=== PATIENT | female | born 1940 | race Caucasian/White ===

== ENCOUNTER → 2018-06-15 15:32 | Outpatient (REF) | payer OTHER, SELFPAY ==
[2018-06-15 19:21] LABS: ALT 18 U/L (12-78); AST 22 U/L (15-37); Albumin 3.5 g/dL (3.4-5.0); Alkaline Phosphatase 124 U/L (46-116); Anion Gap 4.9 mmol/L (3-11); BUN 17 mg/dL (7-18); Bilirubin, Total 0.4 mg/dL (0.2-1.0); CO2 35.1 mmol/L (21.0-32.0); CREATININE 0.92 mg/dL (0.55-1.02); Calcium 8.7 mg/dL (8.5-10.1); Chloride 103 mmol/L (98-107); Estimated GFR 59.35 (mL/min/1.73m2); Glucose 97 mg/dL (70-100); Sodium 143 mmol/L (136-145); Total Protein 7.2 g/dL (6.4-8.2)
[2018-06-17 18:09] LABS: Estradiol <12 pg/ml
== END ==
LOC: NCHCN 15:32
PROVIDERS: PCP Nurse Practitioner Family; Visit Provider Family Medicine
DX: I25.10 Atherosclerotic heart disease of native coronary artery without angina pectoris (principal); I10 Essential (primary) hypertension; E78.5 Hyperlipidemia, unspecified; R73.9 Hyperglycemia, unspecified
CPT/HCPCS: 80053; 82533; 82670

== ENCOUNTER 2018-06-29 02:19 | Outpatient (CLI) | payer OTHER, SELFPAY ==
--- NOTE | 2018-06-29 09:39 | DI.REPORT_ITS ---
SYMPTOM/DIAGNOSIS: BILAT HIP PAIN, M25.559 BILATERAL HIPS: Comparison is made with 01/27/17. Mild joint space narrowing and acetabular spurring is seen at the hips bilaterally. Mild degenerative changes are seen in the sacroiliac joints. The symphysis pubis appears intact. The bones appear mildly osteopenic. No fracture or subluxations are identified. There are again seen moderately severe degenerative changes in the lower lumbar spine. Vascular calcifications are seen in the soft tissues. 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
== END 2018-06-29 02:20 ==
PROVIDERS: PCP Family Medicine; Visit Provider Family Medicine
DX: M25.551 Pain in right hip (principal); M25.552 Pain in left hip; M16.0 Bilateral primary osteoarthritis of hip; M85.88 Other specified disorders of bone density and structure, other site
CPT/HCPCS: 73521

== ENCOUNTER 2018-09-12 08:41 | Emergency (ER) | payer OTHER, MEDICARE, SELFPAY ==
[2018-09-12] VITALS (31 sets, daily range): BP systolic 122–169; BP diastolic 63–115; PULSE 67–100; RESP 2–24; TEMP 36.4–36.8; O2SAT 88–99
--- NOTE | 2018-09-12 09:08 | ED.GENADUL_ITS ---
Discharge Plan Disposition Patient Disposition: HOME Condition: Improving Discharge Details Clinical Impression: Acute exacerbation of chronic obstructive pulmonary disease (COPD) Reason For Visit: [facility] Primary Care Provider: Leann Messina V ED Provider: Hermilo Ladd Home Meds and New Rx's Prescriptions: New doxycycline hyclate 100 mg capsule 100 mg PO BID 10 Days Qty: 20 RF: 0 prednisone 20 mg tablet 40 mg PO DAILY 5 Days Qty: 10 RF: 0 Continue furosemide [Lasix] 20 MG tablet 20 mg PO DAILY RF: 0 INCRUISE RF: 0 aspirin [Aspir-81] 81 MG tablet,delayed release (DR/EC) 1 tab PO DAILY RF: 0 sertraline 100 MG tablet 100 mg PO DAILY RF: 0 gabapentin 300 mg Capsule 1 cap PO TID RF: 0 ipratropium-albuterol 0.5 mg-3 mg(2.5 mg base)/3 mL Solution For Nebulization 3 ml UPD Q6H Qty: 30 RF: 0 levofloxacin [Levaquin] 500 mg Tablet 500 mg PO DAILY@2000 Qty: 3 RF: 0 guaifenesin [Mucinex] 600 mg Tablet Extended Release 12hr 600 mg PO BID Qty: 6 RF: 0 prednisone 10 mg tablet 10 mg PO DAILY Qty: 51 RF: 0 nicotine 7 mg/24 hr patch 24 hour 1 patch TD Q24H Qty: 14 RF: 0 nebulizers misc .ROUTE .MEDSUPPLY Qty: 1 RF: 0 ipratropium-albuterol 0.5 mg-3 mg(2.5 mg base)/3 mL solution for nebulization 3 ml IH Q6H PRN (Reason: shortness of breath or wheezing) Qty: 90 RF: 0 atorvastatin [Lipitor] 40 MG tablet 40 mg PO DAILY RF: 0 ropinirole [Requip] 0.25 MG tablet 0.25 mg PO HS RF: 0 pantoprazole 40 MG tablet,delayed release (DR/EC) 40 mg PO DAILY RF: 0 nitroglycerin [Nitrostat] 0.4 MG tablet, sublingual 0.4 mg Sublingual PRN PRNRF: 0 fluticasone [Flovent HFA] 120 PUFF HFA aerosol inhaler 2 puff Inhalation BID RF: 0 gabapentin 300 MG capsule 900 mg PO HS Qty: 90 RF: 0 metoprolol succinate 50 MG tablet extended release 24 hr 50 mg PO DAILY Qty: 30 RF: 0 isosorbide mononitrate 30 MG tablet extended release 24 hr 30 mg PO DAILY Qty: 31 RF: 0 morphine 15 MG tablet 15 mg PO TID PRN (Reason: Chest Pain) Qty: 42 RF: 0 Discharge Instructions Instructions: COPD (Chronic Obstructive Pulmonary Disease) (ED) Additional Instructions: Please follow-up with Dr Messina in clinic tomorrow at 12:45 as planned. Take antibiotics and prednisone as prescribed. Continue use of oxygen as needed at nighttime. Return to the emergency department if you develop worsening difficulty breathing, or any other acute concern. Medical Decision Making 77-year-old female presents from home with 2 days of cough, congestion, worsening shortness of breath. She has some chronic episodes of left-sided chest wall pain for which she takes morphine. She has had some exacerbation of this chronic pain as well. She arrives with a pulse of 70, blood pressure 145/ 85, mildly increased respiratory rate. Differential diagnosis includes COPD exacerbation, CHF, acute CO, pneumonia. Given steroids, duoneb updraft x2. Given her dose of scheduled morphine. Patient referred for laboratry testing and CXR. She was difficult IV access and phlebotomy only performed initially. Diagnostics are reassuring with unremarkable CBC, Trop, DDimer. She is not tachycardic. Chest x-ray unremarkable for acute focal consolidation or other process. Chronic change. With ambulation, the patient is able to maintain oxygenation of 92-94% without increased dyspnea. I do feel presentation is consistent with COPD exacerbation and likely underlying bronchitis. Will place on antibiotics as well as burst of steroids. Patient has follow-up tomorrow in clinic with Steven Messina. Lab Data Lab results reviewed: Yes I reviewed the patient's lab results. Laboratory Tests Range/Units 09/12/18 09/12/18 09/12/18 09:25 09:25 09:25 WBC (4.4-10.8) k/cumm 8.03 RBC (4.00-5.20) m/cumm 4.06 Hgb (12.0-15.5) g/dL 12.6 Hct (36.0-46.0) % 39.6 MCV (80-95) fL 97.5 H MCH (27.0-33.0) pg 31.0 MCHC (32.0-36.0) g/dL 31.8 L RDW (11.7-14.6) % 13.7 Plt Count (130-400) x1000/uL 325 MPV (8.0-11.0) fL 10.3 Immature Gran % 0.1 Neutrophils % 73.0 Lymphocytes % 19.3 Monocytes % 6.7 Eosinophils % 0.7 Basophils % 0.2 Absolute Neutrophils (1.2-6.7) k/cumm 5.85 Absolute Lymphocytes (1.2-3.4) k/cumm 1.55 Absolute Monocytes (0.11-0.7) k/cumm 0.54 Absolute Eosinophils (0.0-0.7) k/cumm 0.06 Absolute Basophils (0.0-0.2) k/cumm 0.02 Sodium (136-145) mmol/L 142 Potassium (3.5-5.1) mmol/L 3.4 L Chloride (98-107) mmol/L 100 Carbon Dioxide (21.0-32.0) mmol/L 34.9 H Anion Gap (3-11) mmol/L 7.1 BUN (7-18) mg/dL 10 Creatinine (0.55-1.02) mg/dL 0.83 Estimated GFR/1.73 m2 (mL/min/1.73m2) >= 60.00 Glucose (70-100) mg/dL 116 H Calcium (8.5-10.1) mg/dL 9.0 Total Bilirubin (0.2-1.0) mg/dL 0.8 AST (15-37) U/L 22 ALT (12-78) U/L 19 Alkaline Phosphatase (46-116) U/L 111 Troponin I (0.00-0.06) ng/mL < 0.02 NT-Pro-B Natriuret Pep ( - 299) pg/mL 246 Total Protein (6.4-8.2) g/dL 7.2 Albumin (3.4-5.0) g/dL 3.4 ECG Data Attestation: I personally reviewed and interpreted this ECG (s) as follows: Interpretation: Normal sinus rhythm, pulse is 65, low voltage, no ST segment elevation HPI General Mode of arrival: EMS . Date/Time Provider Initiated Documentation: 09/12/18 08:46 . Limitations to Documentation: no limitations . Information obtained by: patient . History of Present Illness 77 year old F presents to the emergency department with the chief complaint of Shortness of breath, described as moderate and similar to prior episodes, Quality is described as constant, and is localized to the chest. Patient reports no radiation. Patient started experiencing this day(s) and it has been constant. Patient notes chest pain, cough and shortness of breath. HPI Narrative: This is a 77-year-old female with oxygen dependent COPD, who continues to smoke, who lives at home. She reports chronic intermittent episodes of left-sided chest pain and chronic intermittent shortness of breath. No recent steroids. She now has 2 days of cough with production of sputum, left-sided chest discomfort as well as shortness of breath is minimally improved by home nebulizers. No known sick contacts. No lower extremity pain or swelling. She states that she has been taking her medications and has otherwise been well Related Data Home Medications Medication Instructions Recorded Confirmed aspirin [Aspir-81] 1 tab PO DAILY 10/16/14 09/12/18 sertraline 100 mg PO DAILY 10/17/16 09/12/18 atorvastatin [Lipitor] 40 mg PO DAILY 11/30/16 09/12/18 fluticasone [Flovent HFA] 2 puff INHALATION BID 11/30/16 09/12/18 nitroglycerin [Nitrostat] 0.4 mg SUBLINGUAL PRN PRN 11/30/16 08/02/18 pantoprazole 40 mg PO DAILY 11/30/16 08/02/18 ropinirole [Requip] 0.25 mg PO HS 11/30/16 09/12/18 gabapentin 900 mg PO HS #90 cap 12/02/16 09/12/18 metoprolol succinate 50 mg PO DAILY #30 tabcr 12/02/16 09/12/18 isosorbide mononitrate 30 mg PO DAILY #31 tabcr 12/07/16 09/12/18 morphine 15 mg PO TID PRN #42 tab 12/07/16 09/12/18 furosemide [Lasix] 20 mg PO DAILY tab-cap 03/31/17 09/12/18 gabapentin 1 cap PO TID 08/02/18 09/12/18 guaifenesin [Mucinex] 600 mg PO BID #6 tab 08/09/18 09/12/18 ipratropium-albuterol 3 ml IH Q6H PRN #90 ml 08/09/18 09/12/18 ipratropium-albuterol 3 ml UPD Q6H #30 vial 08/09/18 09/12/18 levofloxacin [Levaquin] 500 mg PO DAILY@1999 #3 tab 08/09/18 09/12/18 nebulizers #1 each 08/09/18 09/12/18 nicotine 1 patch TD Q24H #14 each 08/09/18 prednisone 10 mg PO DAILY #51 tab 08/09/18 doxycycline hyclate 100 mg PO BID 10 Days #20 cap 09/12/18 prednisone 40 mg PO DAILY 5 Days #10 tab 09/12/18 Previous Rx's Medication Instructions Recorded gabapentin 900 mg PO HS #90 cap 12/02/16 metoprolol succinate 50 mg PO DAILY #30 tabcr 12/02/16 isosorbide mononitrate 30 mg PO DAILY #31 tabcr 12/07/16 morphine 15 mg PO TID PRN #42 tab 12/07/16 guaifenesin [Mucinex] 600 mg PO BID #6 tab 08/09/18 ipratropium-albuterol 3 ml IH Q6H PRN #90 ml 08/09/18 ipratropium-albuterol 3 ml UPD Q6H #30 vial 08/09/18 levofloxacin [Levaquin] 500 mg PO DAILY@1999 #3 tab 08/09/18 nebulizers #1 each 08/09/18 nicotine 1 patch TD Q24H #14 each 08/09/18 prednisone 10 mg PO DAILY #51 tab 08/09/18 doxycycline hyclate 100 mg PO BID 10 Days #20 cap 09/12/18 prednisone 40 mg PO DAILY 5 Days #10 tab 09/12/18 Allergies Allergy/AdvReac Type Severity Reaction Status Date / Time latex Allergy Intermediate Skin Rash Unverified 08/02/18 12:22 Sulfa (Sulfonamide Allergy Unknown unknown Unverified 08/02/18 12:22 Antibiotics) General Stated Complaint: SOB WILBER: 3 Review of Systems Review of Systems 8 systems reviewed and otherwise neg PFSH Family History Son Lymphoma in remission Son History of melanoma Mother CAD (coronary artery disease) Myocardial infarction CHF (congestive heart failure) Father CAD (coronary artery disease) Myocardial infarction Medical History COPD with exacerbation (Acute) CAD S/P percutaneous coronary angioplasty (Acute) Restless leg syndrome (Acute) Adjustment reaction with prolonged depressive reaction (Acute) Rib pain (Acute) Chest pain (Acute) Tobacco abuse (Acute) Insomnia (Acute) History of hysterectomy (Chronic) Social History adopted: No caregiver/support person: No foster care: No household members: children housing: house lives independently: No (Lives with son and great granddaughter (10 yrs old)) number of children: 6 current occupational status: retired pets and animals: Yes Smoking/Tobacco Use Status: Current every day tobacco type: cigarettes quit status: has quit before alcohol intake: never substance use type: does not use additional social history: Had 6 sons. One of suicide by drowning at age 42 in 2001. Surgical History History of total right knee replacement (Acute) History of appendectomy (Chronic) History of colon resection (Chronic) History of tonsillectomy (Chronic) Exam Narrative Exam Narrative: GEN: awake, alert, oriented 3. Pleasant, well groomed, interactive. HEAD: Normocephalic, atraumatic ENT: Mucous membranes moist, oropharynx unremarkable, External ear exam unremarkable EYES: PERRL, EOMI NECK: Full ROM, no BOB, no menigismus CHEST/RESP: Nontender, diminished bilateral CARDIOVASCULAR: RRR, 2 out of 6 systolic ejection murmur, rub ivan. 2+ Rad pulse bilateral ABDOMEN: Soft, nontender, no mass. +Bowel sounds EXT: Full ROM, no rash Neuro: Grossly normal neurologic exam, conversant, interactive. Psych: Speech fluent, thoughts congruent, affect normal Course Vital Signs Pulse 70 09/12/18 08:46 Respiratory Rate 23 09/12/18 08:46 Blood Pressure 145/85 H 09/12/18 08:46 Pulse Oximetry 94 L 09/12/18 08:46 Pulse 70 09/12/18 08:46 Respiratory Rate 23 09/12/18 08:46 Respiratory Effort 09/12/18 08:46 Blood Pressure 145/85 H 09/12/18 08:46 Blood Pressure Position Supine 09/12/18 08:46 Pulse Oximetry 94 L 09/12/18 08:46 Oxygen Delivery Method Room Air 09/12/18 08:46 Oxygen Flow Rate 0 09/12/18 08:46
[2018-09-12 09:36] LABS: Abs Immature Grans 0.01 k/cumm (0.0-0.09); Absolute Basophil Count 0.02 k/cumm (0.0-0.2); Absolute Eosinophil Count 0.06 k/cumm (0.0-0.7); Absolute Lymphocyte Count 1.55 k/cumm (1.2-3.4); Absolute Monocyte Count 0.54 k/cumm (0.11-0.7); Absolute Neutrophil Count 5.85 k/cumm (1.2-6.7); Basophils % 0.2; Eosinophils % 0.7; HCT 39.6 % (36.0-46.0); HGB 12.6 g/dL (12.0-15.5); Immature Grans % 0.1; Lymphocytes % 19.3; Mean Corp. HGB Concentration 31.8 g/dL (32.0-36.0); Mean Corpuscular Volume 97.5 fL (80-95); Mean Platelet Volume 10.3 fL (8.0-11.0); Monocytes % 6.7; Platelet Count 325 x1000/uL (130-400); RBC 4.06 m/cumm (4.00-5.20); RBC Distribution Width 13.7 % (11.7-14.6); White Blood Cell Count 8.03 k/cumm (4.4-10.8)
[2018-09-12 09:51] LABS: ALT 19 U/L (12-78); AST 22 U/L (15-37); Albumin 3.4 g/dL (3.4-5.0); Alkaline Phosphatase 111 U/L (46-116); Anion Gap 7.1 mmol/L (3-11); BUN 10 mg/dL (7-18); Bilirubin, Total 0.8 mg/dL (0.2-1.0); CO2 34.9 mmol/L (21.0-32.0); CREATININE 0.83 mg/dL (0.55-1.02); Chloride 100 mmol/L (98-107); Glucose 116 mg/dL (70-100); Potassium 3.4 mmol/L (3.5-5.1); Sodium 142 mmol/L (136-145); Total Protein 7.2 g/dL (6.4-8.2)
[2018-09-12 09:56] LABS: NT-proBNP 246 pg/mL
[2018-09-12 09:58] LABS: Troponin I < 0.02 ng/mL (0.00-0.06)
[2018-09-12] MEDS: Albuterol/Ipratropium 3 ML UPD VIAL UPD ×2 (10:08→10:51)
--- NOTE | 2018-09-12 10:44 | DI.RAD_ITS ---
SYMPTOMS/DIAGNOSIS: L PAIN, COUGH, SHORTNESS OF BREATH PA AND LATERAL CHEST: The heart is not enlarged. There appear to be some changes of scarring in the lung bases. No definite acute consolidation. No pleural effusion. CONCLUSION: No evidence of acute disease.
== END 2018-09-12 12:18 | disposition home or self-care (01) ==
PROVIDERS: Emergency Provider Emergency Medicine; PCP Family Medicine
DX: J44.1 Chronic obstructive pulmonary disease with (acute) exacerbation (principal); F17.210 Nicotine dependence, cigarettes, uncomplicated; R07.9 Chest pain, unspecified; G89.29 Other chronic pain; Z99.81 Dependence on supplemental oxygen; I10 Essential (primary) hypertension; I25.10 Atherosclerotic heart disease of native coronary artery without angina pectoris
CPT/HCPCS: 36415; 80053; 93005; 94640; 99285; 71046; 83880; 84484; 85025; 93010; 99284; J7620

== ENCOUNTER 2019-02-08 12:30 | Outpatient (CLI) | payer OTHER, SELFPAY | END 2019-02-08 12:50 | PROVIDERS: PCP Family Medicine; Visit Provider Internal Medicine Cardiovascular Disease | DX: I25.10 Atherosclerotic heart disease of native coronary artery without angina pectoris (principal); I10 Essential (primary) hypertension; E78.5 Hyperlipidemia, unspecified; J44.9 Chronic obstructive pulmonary disease, unspecified; Z99.81 Dependence on supplemental oxygen; F17.210 Nicotine dependence, cigarettes, uncomplicated | CPT/HCPCS: 99214 ==

== ENCOUNTER 2019-04-12 16:51 | Outpatient (REF) | payer OTHER, SELFPAY ==
[2019-04-12 20:07] LABS: Anion Gap 4.9 mmol/L (3-11); BUN 18 mg/dL (7-18); C-Reactive Protein 0.33 mg/dL (0.0-0.3); CO2 37.1 mmol/L (21.0-32.0); Calcium 8.6 mg/dL (8.5-10.1); Chloride 101 mmol/L (98-107); Creatine Kinase 67 U/L (26-192); Estimated GFR 48.16 (mL/min/1.73m2); Glucose 98 mg/dL (70-100); Magnesium 1.9 mg/dL (1.8-2.4); Potassium 4.7 mmol/L (3.5-5.1); Sodium 143 mmol/L (136-145)
== END 2019-04-12 17:11 ==
LOC: NCHCN 16:51
PROVIDERS: PCP Family Medicine; Visit Provider Family Medicine
DX: M79.10 Myalgia, unspecified site (principal)
CPT/HCPCS: 80048; 82550; 83735; 86140

== ENCOUNTER 2019-08-13 00:31 | Outpatient (CLI) | payer OTHER, SELFPAY ==
[2019-08-13] MEDS: Regadenoson 0.4 MG/5 ML SYR IVP (10:24)
--- NOTE | 2019-08-13 12:05 | DI.NM_ITS ---
APPROVED REPORT Exam: Pharmacologic Patient Location: Out-Patient Stress Nurse: Kasia Steven RN Baseline Rhythm: Bradycardia short pr interval BMI: 22.31 Indications: Pre-Operative CV Evaluation Medical History Medical History: CAD s/p stent, HTN, Hyperlipidemia, SVT,, COPD O2 dependent at hs,, Obstructive slee p apnea Cardiac Medications: Isosorbide mononitrate/ [place], Metoprolol, Atorvastatin/ Lipitor Allergies: sulfa, latex Cardiac Risk Factors: HTN, Hyperlipidemia, FHX of CAD, Smoking, SOB, COPD Previous Cardiac Procedures: PCI Pretest Chest Pain Characteristics: Non-exertional Chest pain Exercise History: Sedentary Lung Sounds: Clear to auscultation Heart Sounds: Regular Stress Test Details Test: Pharmacologic stress testing performed using 0.4 mg of regadenoson per 5 mL given IV over 10 s econds. Nuclear Acquisition: Rest Tc-99m/Stress Tc-99m 1 day Rest Isotope: Tc-99m Sestamibi. Dose: 10.2 Date: 08/13/2019 Injection Time: 0850 Stress Isotope: Tc-99m Sestamibi. Dose: 32.7 Date: 08/13/2019 Injection Time: 0955 HR Resting HR: 48 bpm Max Heart Rate (APMHR): 143 bpm Resting HR Supine: 48 bpm Target HR (85% APMHR): 121 bpm Resting HR Standin bpm Max HR Achieved: 85 bpm % of APMHR: 59 Recovery HR: 79 bpm HR response to stress: Normal HR response to stress BP Resting BP Supine: 110/82 mmHg Resting BP Standin/78 mmHg Max BP: 140/86 mmHg Recovery BP: 140/74 mmHg BP response to stress: Normal blood pressure response to stress. ECG Resting ECG: Sinus Bradycardia ST Change: Normal Ectopy: pvc's Stress ECG: Sinus Rhythm ST Change: Normal Arrhythmia: VPC's, trigeminy, MF pvc's Recovery ECG: Sinus Rhythm Recovery Arrhythmia: VPC Clinical Start time of Regadenoson test (time of injection): 09 Stress Symptoms: Dyspnea, Headache Exercise duration: min sec Stress ECG Conclusion 1. There is no evidence of ischemia on stress ECG. Test Summary supine 07:07 0 0 48 1 110/82 91 standing 0 0 66 1 134/78 89-92 start test 1 minute 0 0 55 1 132/72 92 3 minute 0 0 79 1 140/86 94 6 min 79 140/74 92 MPI Conclusion Ejection Fraction was 54% without wall motion abnormalities There are no significant perfusion defects on stress imaging This represents a normal stress perfusion test.
== END 2019-08-13 00:51 ==
PROVIDERS: PCP Family Medicine; Visit Provider Family Medicine
DX: R07.89 Other chest pain (principal); R06.02 Shortness of breath; I25.10 Atherosclerotic heart disease of native coronary artery without angina pectoris; Z95.5 Presence of coronary angioplasty implant and graft; I10 Essential (primary) hypertension; E78.5 Hyperlipidemia, unspecified; F17.200 Nicotine dependence, unspecified, uncomplicated; J44.9 Chronic obstructive pulmonary disease, unspecified; Z01.810 Encounter for preprocedural cardiovascular examination
CPT/HCPCS: 78452; 93016; 93018; 93017; J2785

== ENCOUNTER 2019-12-10 16:49 | Inpatient (IN) | payer OTHER, SELFPAY ==
[2019-12-10 16:53] VITALS: BP 147/96; PULSE 59; RESP 20; TEMP 36.9; O2SAT 91
[2019-12-10 17:19] LABS: Bilirubin Negative (Negative); Blood Trace-intact (Negative); Clarity Clear (Clear); Glucose Negative (Negative); Ketones Negative (Negative); Leukocyte Esterase Negative (Negative); Nitrite Negative (Negative); Specific Gravity 1.015 (1.005-1.025); pH 7.5 (5-8)
[2019-12-10 17:31] LABS: Bacteria Few HPF (Negative); C & S Indicated? No; Casts Negative LPF (Negative); Crystals Negative HPF (Negative); Epithelial Cells Few HPF (Negative); Mucus Negative (Negative); Other Cells Negative (Negative)
[2019-12-10 17:36] LABS: Abs Immature Grans 0.01 k/cumm (0.0-0.09); Absolute Basophil Count 0.04 k/cumm (0.0-0.2); Absolute Eosinophil Count 0.16 k/cumm (0.0-0.7); Absolute Lymphocyte Count 2.11 k/cumm (1.2-3.4); Absolute Monocyte Count 0.66 k/cumm (0.11-0.7); Absolute Neutrophil Count 4.59 k/cumm (1.2-6.7); Basophils % 0.5; Eosinophils % 2.1; HCT 37.7 % (36.0-46.0); HGB 12.3 g/dL (12.0-15.5); Immature Grans % 0.1 %; Lymphocytes % 27.9; Mean Corp. HGB Concentration 32.6 g/dL (32.0-36.0); Mean Corpuscular Hemoglobin 30.9 pg (27.0-33.0); Mean Corpuscular Volume 94.7 fL (80-95); Mean Platelet Volume 9.9 fL (8.0-11.0); Monocytes % 8.7; Neutrophils % 60.7; Platelet Count 255 x1000/uL (130-400); RBC 3.98 m/cumm (4.00-5.20); RBC Distribution Width 13.9 % (11.7-14.6); White Blood Cell Count 7.57 k/cumm (4.4-10.8)
--- NOTE | 2019-12-10 17:47 | DI.CT_ITS ---
EXAM: CT HEAD WO CT HEAD WO CLINICAL HISTORY: AMS. AMS TECHNIQUE: Imaging Protocol: Axial computed tomography images with coronal and sagittal reformatted images were created and reviewed COMPARISON: HEAD WITHOUT STROKE PROTOCOL from 01/02/2017 FINDINGS: Ventricles and Extra axial spaces: Normal in size and morphology for the patient's age. Hemorrhage: None. Cerebral parenchyma: Normal. Midline shift: None. Brainstem/Cerebellum: Normal. Calvarium: Normal. Visualized Paranasal sinuses/Mastoids: Clear. IMPRESSION: Normal CT of the head. DATA REPOSITORY: All CT scans at this facility are submitted to the National Radiology Data Registry (NRDR) Dose Index Registry (DIR) with the [employer] ([employer]). RADIATION OPTIMIZATION: All CT scans at this facility use at least one of these dose optimization te chniques: automated exposure control; mA and/or kV adjustment per patient size (includes targeted exa ms where dose is matched to clinical indication); or iterative reconstruction.
[2019-12-10 18:00] LABS: ALT 10 U/L (14-59); AST 21 U/L (15-37); Albumin 3.4 g/dL (3.4-5.0); Alkaline Phosphatase 99 U/L (46-116); Anion Gap 3.6 mmol/L (3-11); BUN 9 mg/dL (7-18); Bilirubin, Total 1.1 mg/dL (0.2-1.0); CO2 34.4 mmol/L (21.0-32.0); CREATININE 0.83 mg/dL (0.55-1.02); Calcium 8.6 mg/dL (8.5-10.1); Chloride 96 mmol/L (98-107); Glucose 83 mg/dL (74-106); Potassium 3.1 mmol/L (3.5-5.1); Sodium 134 mmol/L (136-145); TSH (W/Ref FT4) 1.99 uIU/mL (0.36-3.74); Total Protein 7.2 g/dL (6.4-8.2)
--- NOTE | 2019-12-10 18:06 | DI.VRAD_ITS ---
PROCEDURE INFORMATION: Exam: CT Head Without Contrast Exam date and time: 12/10/2019 5:43 PM Age: 79 years old Clinical indication: Altered mental status/memory loss; Confusion or disorientation TECHNIQUE: Imaging protocol: Computed tomography of the head without contrast. Radiation optimization: All CT scans at this facility use at least one of these dose optimization techniques: automated exposure control; mA and/or kV adjustment per patient size (includes targeted exams where dose is matched to clinical indication); or iterative reconstruction. COMPARISON: CT HEAD WITHOUT STROKE PROTOCOL 01/02/2017 5:29 PM FINDINGS: Brain: There is no acute intracranial hemorrhage, mass effect or midline shift. No large acute territorial infarct identified. There are patchy regions of hypodensity in the periventricular and subcortical white matter, likely on the basis of chronic microvascular ischemic disease. Ventricles: The ventricles and sulci are prominent in size, which is likely related to global cerebral volume loss. Bones/joints: Unremarkable. No acute fracture. Sinuses: Visualized sinuses are unremarkable. No fluid levels. Mastoid air cells: Visualized mastoid air cells are well aerated. Soft tissues: Unremarkable. IMPRESSION: No acute intracranial hemorrhage, mass effect or midline shift. Dictated and Authenticated by: Lynn Powell MD. Ordering:BERNA Anguiano MD
--- NOTE | 2019-12-10 18:19 | W.ED.GENAD ---
Discharge Plan Disposition Patient Disposition: OTHER Condition: Serious Discharge Details Chief Complaint: GenMedical Clinical Impression: Altered mental status, Hallucinations Primary Care Provider: Leann Messina V ED Provider: Silvio Pacheco Home Meds and New Rx's Prescriptions: No Action furosemide [Lasix] 20 MG tablet 20 mg PO DAILY RF: 0 aspirin [Aspir-81] 81 MG tablet,delayed release (DR/EC) 1 tab PO DAILY RF: 0 sertraline 100 MG tablet 150 mg PO DAILY RF: 0 (D[place]) [place] [facility] [place] Dose Instructions .ROUTE .MEDSUPPLY Qty: 1 RF: 0 ketoconazole 2 % Shampoo 1 applic TOPICAL PRN PRNRF: 0 ibuprofen 800 mg Tablet 800 mg PO TID PRNRF: 0 hydrocodone-acetaminophen 5-325 mg Tablet 1 tab PO BID PRNRF: 0 albuterol sulfate [ProAir HFA] 90 mcg/actuation Hfa Aerosol Inhaler 2 puff INHALATION Q6H PRNRF: 0 budesonide-formoterol [Symbicort] 160-4.5 mcg/actuation Hfa Aerosol Inhaler 2 puff INHALATION BID RF: 0 Incruse Ellipta 62.5 mcg/actuation Blister With Device 1 inh INHALATION DAILY RF: 0 bupropion HCl (smoking deter) 150 mg Tablet Extended Release 12 Hr 150 mg PO BID RF: 0 cholecalciferol (vitamin D3) 2,000 unit Tablet,Chewable 2,000 unit PO DAILY RF: 0 ipratropium-albuterol 0.5 mg-3 mg(2.5 mg base)/3 mL solution for nebulization 3 ml UPD Q6H PRNRF: 0 isosorbide mononitrate 30 MG tablet extended release 24 hr 60 mg PO DAILY RF: 0 atorvastatin [Lipitor] 40 MG tablet 80 mg PO DAILY RF: 0 ropinirole [Requip] 0.25 MG tablet 0.5 mg PO HS RF: 0 pantoprazole 40 MG tablet,delayed release (DR/EC) 40 mg PO DAILY RF: 0 nitroglycerin [Nitrostat] 0.4 MG tablet, sublingual 0.4 mg Sublingual PRN PRNRF: 0 gabapentin 300 MG capsule 900 mg PO HS Qty: 90 RF: 0 metoprolol succinate 50 MG tablet extended release 24 hr 50 mg PO DAILY Qty: 30 RF: 0 morphine 15 MG tablet 15 mg PO TID PRN (Reason: Chest Pain) Qty: 42 RF: 0 Medical Decision Making 79-year-old female having hallucinations since taking Wellbutrin. Clearly this medication can cause her symptoms but given her age and comorbidities will obtain routine laboratory values, urinalysis, thyroid studies and head CT. I had a long discussion with patient and friend. Patient is limited resources locally. Family lives south in the [facility] and cannot care for her this evening. After having a very transparent conversation, patient's friend does not feel as though taking her home is in the patient's best interest. Work-up here in the ER was unremarkable. We once again discussed disposition options. This is a 79-year-old female having hallucinations, with mental status, opening the door and middle the night for hallucinations. Clearly she is not safe to go home in her current condition. We will discuss the case with our hospitalist team for safe disposition. I did initially question whether or not getting a psych consultation would be indicated however given the recent medication change which very well could cause her symptoms, I question if we need to give the medication a chance to clear and the symptoms persist then psychiatric consultation would be more appropriate. HPI General Mode of arrival: ambulatory. Date/Time Provider Initiated Documentation: 12/10/19 16:52. Limitations to Documentation: no limitations. Information obtained by: patient and family (Friend). HPI Narrative: 79-year-[place] for altered mental status and visual hallucinations. She has a history of AAA, COPD, CAD, restless leg syndrome, tobacco use, insomnia patient was prescribed Wellbutrin by her primary care provider and began taking it on 11-19-2027. After 14 days she increased the dose as directed. She reports that soon after she began having altered thoughts, worsening insomnia, and lack of appetite. She denies any suicidal or homicidal ideations whatsoever. The symptoms worsened and now she is having visual hallucinations. She sees men and multiple trucks in her driveway, she saw her son and she opened the door for him in the middle of the night. She has been seeing boxes of bones and rats running around the floor. She denies any recent illness or trauma. Specifically no head injuries. Denies history of hallucinations. She did talk with her primary care provider last week regarding the symptoms and it was recommended that she stop taking the Wellbutrin however she felt as though it was helping with her smoking so she simply decrease the dose but has not stopped taking the medication. Related Data Home Medications Medication Instructions Recorded Confirmed aspirin [Aspir-81] 1 tab PO DAILY 10/16/14 12/10/19 sertraline 150 mg PO DAILY 10/17/16 12/10/19 atorvastatin [Lipitor] 80 mg PO DAILY 11/30/16 12/10/19 nitroglycerin [Nitrostat] 0.4 mg SUBLINGUAL PRN PRN 11/30/16 12/10/19 pantoprazole 40 mg PO DAILY 11/30/16 12/10/19 ropinirole [Requip] 0.5 mg PO HS 11/30/16 12/10/19 gabapentin 900 mg PO HS #90 cap 12/02/16 12/10/19 metoprolol succinate 50 mg PO DAILY #30 tabcr 12/02/16 12/10/19 morphine 15 mg PO TID PRN #42 tab 12/07/16 12/10/19 furosemide [Lasix] 20 mg PO DAILY tab-cap 03/31/17 12/10/19 nebulizers #1 each 08/09/18 02/08/19 albuterol sulfate [ProAir HFA] 2 puff INHALATION Q6H PRN 12/10/19 12/10/19 budesonide-formoterol [Symbicort] 2 puff INHALATION BID 12/10/19 12/10/19 bupropion HCl (smoking deter) 150 mg PO BID 12/10/19 12/10/19 cholecalciferol (vitamin D3) 2,000 unit PO DAILY 12/10/19 12/10/19 hydrocodone-acetaminophen 1 tab PO BID PRN 12/10/19 12/10/19 ibuprofen 800 mg PO TID PRN 12/10/19 12/10/19 ipratropium-albuterol 3 ml UPD Q6H PRN 12/10/19 12/10/19 isosorbide mononitrate 60 mg PO DAILY 12/10/19 12/10/19 ketoconazole 1 applic TOPICAL PRN PRN 12/10/19 12/10/19 umeclidinium [Incruse Ellipta] 1 inh INHALATION DAILY 02/11/20 02/11/20 Previous Rx's Medication Instructions Recorded gabapentin 900 mg PO HS #90 cap 12/02/16 metoprolol succinate 50 mg PO DAILY #30 tabcr 12/02/16 morphine 15 mg PO TID PRN #42 tab 12/07/16 nebulizers #1 each 08/09/18 Allergies Allergy/AdvReac Type Severity Reaction Status Date / Time latex Allergy Intermediate Skin Rash Unverified 02/08/19 12:32 Sulfa (Sulfonamide Allergy Unknown unknown Unverified 02/08/19 12:32 Antibiotics) General Stated Complaint: GenMedical WILBER: 3 Review of Systems Constitutional Constitutional: Denies chills, Denies fatigue, Denies fever(s) and Denies weakness Eyes Eyes: Denies other visual disturbances ENT Ears, Nose, Mouth, and Throat: Denies dry mouth Cardiovascular Cardiovascular: Denies chest pain and Denies dyspnea Respiratory Respiratory: Denies dyspnea and Denies wheezing Gastrointestinal Gastrointestinal: Denies abdominal pain, Denies nausea and Denies vomiting Musculoskeletal Musculoskeletal: Denies back pain and Denies tingling Neurologic Neurologic: Reports other visual disturbances (Visual hallucinations), Denies tingling, Denies paresthesias and Denies weakness Psychiatric Psychiatric: Reports abnormal sleep pattern, Reports visual hallucinations, Reports hallucinations, Denies homicidal ideation and Denies suicidal ideation Endocrine Endocrine: Denies fatigue Allergic/Immunologic Allergic/Immunologic: Denies wheezing [facility] Medical History Adjustment reaction with prolonged depressive reaction (Acute) CAD S/P percutaneous coronary angioplasty (Acute) Chest pain (Acute) COPD with exacerbation (Acute) Insomnia (Acute) Restless leg syndrome (Acute) Rib pain (Acute) Tobacco abuse (Acute) Surgical History History of appendectomy (Chronic) History of colon resection (Chronic) History of hysterectomy (Chronic) History of tonsillectomy (Chronic) History of total right knee replacement (Acute) Family History Son Lymphoma in remission Son History of melanoma Mother , at age 65 CAD (coronary artery disease) Myocardial infarction CHF (congestive heart failure) Father , at age 66 CAD (coronary artery disease) Myocardial infarction Social History Smoking/Tobacco Use Status: Current every day Tobacco Type: cigarettes Quit status: has quit before Alcohol Intake: never Drug use: Never Substance use type: does not use Adopted: No Caregiver/Support person: No Foster care: No Household members: children Housing: house Number of Children: 6 Pets and animals: Yes Do you feel safe in your relationship?: Yes Additional Social history: Had 6 sons. One of suicide by drowning at age 42 in 2001. Exam Const General: cooperative, healthy appearing, comfortable and no acute distress Orientation: alert, awake and oriented x3 HENMT Head: normal to inspection and normocephalic Mouth: moist mucous membranes Eyes General: appearance normal, both eyes and all related structures Conjunctivae: conjunctivae normal Pupils: PERRL EOM: EOM intact bilaterally Neck Neck: normal visual inspection, full ROM, no lymphadenopathy, no meningeal signs, trachea midline and supple Resp Effort & Inspection: normal respiratory effort Auscultation: wheezes (Rare bilateral lower lobe expiratory wheeze, mostly clear with cough) Cardio Rate: regular rate Rhythm: regular rhythm GI Inspection: normal to inspection Palpation: soft and nontender Back/Spine/Pelvis Back: No back tenderness Skin General skin exam: no rashes or lesions noted Neuro General: alert, awake and oriented x3 Cranial Nerves: CN's II-XI intact bilaterally Cognition: normal cognition (Pt with no hallucinations. Has good insight regarding her hallucinations) Speech: speech normal Gait: normal gait Motor: muscle tone normal throughout Sensory Exam: no sensory deficits noted Extrem General: normal to inspection Psych Appearance: grossly normal Course Vital Signs Vital signs: Vital Signs Temperature 36.9 C 12/10/19 16:53 Pulse 59 L 12/10/19 16:53 Respiratory Rate 12/10/19 16:53 Blood Pressure 147/96 H 12/10/19 16:53 Pulse Oximetry 91 L 12/10/19 16:53 Temperature 36.9 C 12/10/19 16:53 Temperature Source Skin 12/10/19 16:53 Pulse 59 L 12/10/19 16:53 Respiratory Rate 12/10/19 16:53 Respiratory Effort Non-Labored 12/10/19 17:11 Respiratory Depth Normal 12/10/19 17:11 Respiratory Pattern Normal 12/10/19 17:11 Blood Pressure 147/96 H 02/11/20 16:53 Blood Pressure Position Sitting 12/10/19 16:53 Pulse Oximetry 91 L 12/10/19 16:53 Oxygen Delivery Method Room Air 12/10/19 16:53 Oxygen Flow Rate 0 12/10/19 16:53 Lab/Test Results Lab/Test Results: Laboratory Tests Range/Units 12/10/19 12/10/19 12/10/19 17:04 17:30 17:30 WBC (4.4-10.8) k/cumm 7.57 RBC (4.00-5.20) m/cumm 3.98 L Hgb (12.0-15.5) g/dL 12.3 Hct (36.0-46.0) % 37.7 MCV (80-95) fL 94.7 MCH (27.0-33.0) pg 30.9 MCHC (32.0-36.0) g/dL 32.6 RDW (11.7-14.6) % 13.9 Plt Count (130-400) x1000/uL 255 MPV (8.0-11.0) fL 9.9 Immature Gran % % 0.1 Neutrophils % 60.7 Lymphocytes % 27.9 Monocytes % 8.7 Eosinophils % 2.1 Basophils % 0.5 Absolute Neutrophils (1.2-6.7) k/cumm 4.59 Absolute Lymphocytes (1.2-3.4) k/cumm 2.11 Absolute Monocytes (0.11-0.7) k/cumm 0.66 Absolute Eosinophils (0.0-0.7) k/cumm 0.16 Absolute Basophils (0.0-0.2) k/cumm 0.04 Sodium (136-145) mmol/L 134 L Potassium (3.5-5.1) mmol/L 3.1 L Chloride (98-107) mmol/L 96 L Carbon Dioxide (21.0-32.0) mmol/L 34.4 H Anion Gap (3-11) mmol/L 3.6 BUN (7-18) mg/dL 9 Creatinine (0.55-1.02) mg/dL 0.83 Estimated GFR/1.73 m2 (mL/min/1.73m2) >= 60.00 Glucose (74-106) mg/dL 83 Calcium (8.5-10.1) mg/dL 8.6 Total Bilirubin (0.2-1.0) mg/dL 1.1 H AST (15-37) U/L 21 ALT (14-59) U/L 10 L Alkaline Phosphatase (46-116) U/L 99 Total Protein (6.4-8.2) g/dL 7.2 Albumin (3.4-5.0) g/dL 3.4 TSH (0.36-3.74) uIU/mL 1.99 Urine Color (Yellow) Yellow Urine Clarity (Clear) Clear Urine pH (5-8) 7.5 Ur Specific [place] (1.005-1.025) 1.015 Urine Protein (Negative) mg/dL Negative Urine Ketones (Negative) mg/dL Negative Urine Blood (Negative) Trace-intact H Urine Nitrite (Negative) Negative Urine Bilirubin (Negative) Negative Urine Urobilinogen (Up TO 0.2) EU/dL 1.0 H Ur Leukocyte Esterase (Negative) Negative Urine RBC (0-2) HPF 3-5 H Urine WBC (0-5) HPF 3-5 Ur Epithelial Cells (Negative) HPF Few Urine Crystals (Negative) HPF Negative Urine Bacteria (Negative) HPF Few Urine Casts (Negative) LPF Negative Urine Mucus (Negative) Negative Urine Other (Negative) Negative Ur Culture Indicated? No Urine Glucose (Negative) mg/dL Negative
[2019-12-10 18:26] VITALS: BP 158/55; PULSE 50; RESP 15; TEMP 37; O2SAT 91
--- NOTE | 2019-12-10 18:40 | NUR.NOTE ---
IV attempted in L forearm without success. pt states she wants to go home tonight as she needs to feed her dogs. provider notified.
--- NOTE | 2019-12-10 19:08 | NUR.NOTE ---
TARIK Anguiano notified pt declined IV at this time.
[2019-12-10 19:28] VITALS: BP 181/78; PULSE 54; RESP 16; TEMP 36.4; O2SAT 90
--- NOTE | 2019-12-10 21:00 | W.PM.HP.N ---
Date of service: 12/10/19 Time of Service: 21:00 Assessment and Plan Assessment and plan (1) Hallucinations: Status: Acute Assessment and plan: Wellbutrin can have side effects of behavior change, hostility, agitation, depression, and suicidality. While the patient is not at all suicidal or homicidal she is having active hallucinations by her report. She is admitted to observation where holding the Wellbutrin. We will see if this has an overall positive effect on hallucinations. Will provide nicotine replacement in the form of patch. She may need further psychiatric evaluation. No antipsychotic medications were started at this time. (2) Altered mental status: Status: Acute Assessment and plan: Patient lives alone. She was brought in by a friend. There is concern that her altered mental status will be detrimental to her living independently at home. Her friend did not think she could take care of her. She is admitted for observation. History of Present Illness History of Present Illness Chief Complaint: Hallucinations Narrative: This is a 79-year-old woman who has recently started Wellbutrin for smoking cessation. She has been on it since 11/19/2019. After 14 days the dose was increased by her PCP. She does not want to stop the medicine because it is working and helping her quit smoking. Soon after beginning the Wellbutrin she began having altered thoughts, worsening insomnia, lack of appetite. Recently she has begun having visual hallucinations. She sees men and multiple trucks in her driveway. She saw her son and open the door for him in the middle of the night. She has seen boxes of bones and rats running around the floor. She reported this to her PCP who recommended stopping the Wellbutrin but because it was helping with her smoking cessation she decreased the dose but did not stop the medication. In the emergency room her exam was benign, her pulse was low at 50, her potassium low at 3.1. A head CT was negative. The urine showed 3-5 red cells and 3-5 white cells. She is admitted to [facility] for further work-up. She is placed on telemetry because of the bradycardia. The Wellbutrin is being held. Review of Systems Narrative: At the time of my exam the patient offers no complaints. She says she was not actively hallucinating. She had no chest pain no shortness of breath. She had no GI symptoms. Remainder review of systems was negative. [facility] Medical History Adjustment reaction with prolonged depressive reaction (Acute) CAD S/P percutaneous coronary angioplasty (Acute) Chest pain (Acute) COPD with exacerbation (Acute) Insomnia (Acute) Restless leg syndrome (Acute) Rib pain (Acute) Tobacco abuse (Acute) Surgical History History of appendectomy (Chronic) History of colon resection (Chronic) History of hysterectomy (Chronic) History of tonsillectomy (Chronic) History of total right knee replacement (Acute) Family History Son Lymphoma in remission Son History of melanoma Mother , at age 65 CAD (coronary artery disease) Myocardial infarction CHF (congestive heart failure) Father , at age 66 CAD (coronary artery disease) Myocardial infarction Social History Smoking/Tobacco Use Status: Current every day Tobacco Type: cigarettes Quit status: has quit before Alcohol Intake: never Drug use: Never Substance use type: does not use Adopted: No Caregiver/Support person: No Foster care: No Household members: children Housing: house Number of Children: 6 Pets and animals: Yes Do you feel safe in your relationship?: Yes Additional Social history: Had 6 sons. One of suicide by drowning at age 42 in 2001. Meds Home Medications and Allergies Home Medications Medication Instructions Recorded Confirmed Type aspirin [Aspir-81] 1 tab PO DAILY 10/16/14 12/10/19 History sertraline 150 mg PO DAILY 10/17/16 12/10/19 History atorvastatin [Lipitor] 80 mg PO DAILY 11/30/16 12/10/19 History nitroglycerin [Nitrostat] 0.4 mg SUBLINGUAL PRN PRN 11/30/16 12/10/19 History pantoprazole 40 mg PO DAILY 11/30/16 12/10/19 History ropinirole [Requip] 0.5 mg PO HS 11/30/16 12/10/19 History gabapentin 900 mg PO HS #90 cap 12/02/16 12/10/19 Rx metoprolol succinate 50 mg PO DAILY #30 tabcr 12/02/16 12/10/19 Rx morphine 15 mg PO TID PRN #42 tab 12/07/16 12/10/19 Rx furosemide [Lasix] 20 mg PO DAILY tab-cap 03/31/17 12/10/19 History nebulizers #1 each 08/09/18 02/08/19 Rx albuterol sulfate [ProAir HFA] 2 puff INHALATION Q6H PRN 12/10/19 12/10/19 History budesonide-formoterol [Symbicort] 2 puff INHALATION BID 12/10/19 12/10/19 History bupropion HCl (smoking deter) 150 mg PO BID 12/10/19 12/10/19 History cholecalciferol (vitamin D3) 2,000 unit PO DAILY 12/10/19 12/10/19 History hydrocodone-acetaminophen 1 tab PO BID PRN 12/10/19 12/10/19 History ibuprofen 800 mg PO TID PRN 12/10/19 12/10/19 History ipratropium-albuterol 3 ml UPD Q6H PRN 12/10/19 12/10/19 History isosorbide mononitrate 60 mg PO DAILY 12/10/19 12/10/19 History ketoconazole 1 applic TOPICAL PRN PRN 12/10/19 12/10/19 History umeclidinium [Incruse Ellipta] 1 inh INHALATION DAILY 12/10/19 12/10/19 History Allergies Allergy/AdvReac Type Severity Reaction Status Date / Time latex Allergy Intermediate Skin Rash Unverified 02/08/19 12:32 Sulfa (Sulfonamide Allergy Unknown unknown Unverified 02/08/19 12:32 Antibiotics) Exam Narrative Exam Narrative: On exam she is somewhat disheveled lying in bed in the position. She is very groggy. She acknowledge my presence but spoke very little. She did not appear anxious or paranoid. There was no evidence that she was actively hallucinating. She moves upper and lower extremities without any apparent decrement of function. She was able to follow commands. Her lung exam was clear on the right and left. Her heart sounded regular but bradycardic. Abdomen was overall nontender. Her lower extremities showed no significant edema. Results Labs Result diagrams: 12/10/19 17:30 12/10/19 17:30 Labs: Laboratory Results - last 24 hr 12/10/19 12/10/1912/10/20 17:04 17:30 17:30 WBC 7.57 RBC 3.98 L Hgb 12.3 Hct 37.7 MCV 94.7 MCH 30.9 MCHC 32.6 RDW 13.9 Plt Count 255 MPV 9.9 Immature Gran % 0.1 Neutrophils % 60.7 Lymphocytes % 27.9 Monocytes % 8.7 Eosinophils % 2.1 Basophils % 0.5 Absolute Neutrophils 4.59 Absolute Lymphocytes 2.11 Absolute Monocytes 0.66 Absolute Eosinophils 0.16 Absolute Basophils 0.04 Sodium 134 L Potassium 3.1 L Chloride 96 L Carbon Dioxide 34.4 H Anion Gap 3.6 BUN 9 Creatinine 0.83 Estimated GFR/1.73 m2 >= 60.00 Glucose 83 Calcium 8.6 Total Bilirubin 1.1 H AST 21 ALT 10 L Alkaline Phosphatase 99 Total Protein 7.2 Albumin 3.4 TSH 1.99 Urine Color Yellow Urine Clarity Clear Urine pH 7.5 Ur Specific [place] 1.015 Urine Protein Negative Urine Ketones Negative Urine Blood Trace-intact H Urine Nitrite Negative Urine Bilirubin Negative Urine Urobilinogen 1.0 H Ur Leukocyte Esterase Negative Urine RBC 3-5 H Urine WBC 3-5 Ur Epithelial Cells Few Urine Crystals Negative Urine Bacteria Few Urine Casts Negative Urine Mucus Negative Urine Other Negative Ur Culture Indicated? No Urine Glucose Negative Last Vital Signs Temp 36.4 C L 12/10/19 19:28 Pulse 54 L 12/10/19 19:28 Resp 16 12/10/19 19:28 BP 181/78 H 12/10/19 19:28 Pulse Ox 90 L 12/10/19 19:28
[2019-12-10] MEDS: Potassium Chloride 20 MEQ TABCR 40 MEQ PO (21:22)
[2019-12-10] MEDS: Gabapentin 300 MG CAP 900 MG PO (21:23)
[2019-12-10] MEDS: rOPINIRole 0.5 MG TAB PO (21:23)
[2019-12-10] MEDS: Enoxaparin 40 MG/0.4 ML SYR SC (21:24)
[2019-12-10 22:13] VITALS: O2SAT 92
[2019-12-10 23:32] VITALS: BP 142/74; PULSE 58; RESP 18; TEMP 36.4; O2SAT 91
[2019-12-11 03:12] VITALS: BP 156/71; PULSE 53; RESP 18; TEMP 36.4; O2SAT 92
[2019-12-11 06:44] LABS: HCT 39.3 % (36.0-46.0); HGB 12.5 g/dL (12.0-15.5); Mean Corp. HGB Concentration 31.8 g/dL (32.0-36.0); Mean Corpuscular Hemoglobin 30.4 pg (27.0-33.0); Mean Corpuscular Volume 95.6 fL (80-95); Platelet Count 269 x1000/uL (130-400); RBC 4.11 m/cumm (4.00-5.20); White Blood Cell Count 7.63 k/cumm (4.4-10.8)
[2019-12-11 06:52] LABS: Anion Gap 6.7 mmol/L (3-11); BUN 10 mg/dL (7-18); CO2 34.3 mmol/L (21.0-32.0); CREATININE 0.79 mg/dL (0.55-1.02); Calcium 8.7 mg/dL (8.5-10.1); Chloride 101 mmol/L (98-107); Glucose 79 mg/dL (74-106); Potassium 3.6 mmol/L (3.5-5.1); Sodium 142 mmol/L (136-145)
[2019-12-11 07:35] VITALS: BP 165/71; PULSE 54; RESP 17; TEMP 36.7; O2SAT 94
[2019-12-11] MEDS: Budesonide/Formoterol 160/4.5 6 GM 60 PUFF INH IH (08:00)
[2019-12-11] MEDS: Umeclidinium 7 CAP INHALER IH (08:03)
[2019-12-11 08:05] VITALS: O2SAT 93
[2019-12-11] MEDS: Furosemide 20 MG TAB PO (08:17)
[2019-12-11] MEDS: Sertraline 50 MG TAB 150 MG PO (08:17)
[2019-12-11] MEDS: Nicotine 14 MG/24 HR PATCH TD (08:17)
[2019-12-11] MEDS: Aspirin E.C. 81 MG TABEC PO (08:17)
[2019-12-11] MEDS: Pantoprazole 40 MG TABCR PO (08:17)
[2019-12-11] MEDS: Isosorbide Mononitrate 30 MG TABCR 60 MG PO (08:17)
[2019-12-11 10:51] LABS: Magnesium 1.8 mg/dL (1.8-2.4)
--- NOTE | 2019-12-11 11:11 | W.PM.PROGNOT ---
Date of Service Date of service: 12/11/19 Time of Service: 11:00 Subjective Subjective Patient reports: no new complaints, feels better and tolerating a regular diet Exam Const General: cooperative, healthy appearing, comfortable and no acute distress Nutritional Appearance: thin Orientation: alert, awake and oriented x3 HENMT Head: normal to inspection, normocephalic and atraumatic Mouth: oral mucosae normal Resp Effort & Inspection: normal respiratory effort Cardio Rate: regular rate Rhythm: regular rhythm GI Inspection: normal to inspection Palpation: soft Auscultation: normal bowel sounds Skin General skin exam: no rashes or lesions noted Neuro General: alert, awake and oriented x3 Extrem General: normal to inspection, full ROM and no pedal edema Objective Objective Clinical Data: Abnormal lab results 12/10/19 12/10/19 12/10/19 Range/Units 17:04 17:30 17:30 RBC 3.98 L (4.00-5.20) m/cumm MCV (80-95) fL MCHC (32.0-36.0) g/dL Sodium 134 L (136-145) mmol/L Potassium 3.1 L (3.5-5.1) mmol/L Chloride 96 L (98-107) mmol/L Carbon Dioxide 34.4 H (21.0-32.0) mmol/L Total Bilirubin 1.1 H (0.2-1.0) mg/dL ALT 10 L (14-59) U/L Urine Blood Trace-intact H (Negative) Urine Urobilinogen 1.0 H (Up TO 0.2) EU/dL Urine RBC 3-5 H (0-2) HPF 12/11/19 12/11/19 Range/Units 06:04 06:04 RBC (4.00-5.20) m/cumm MCV 95.6 H (80-95) fL MCHC 31.8 L (32.0-36.0) g/dL Sodium (136-145) mmol/L Potassium (3.5-5.1) mmol/L Chloride (98-107) mmol/L Carbon Dioxide 34.3 H (21.0-32.0) mmol/L Total Bilirubin (0.2-1.0) mg/dL ALT (14-59) U/L Urine Blood (Negative) Urine Urobilinogen (Up TO 0.2) EU/dL Urine RBC (0-2) HPF Vital Signs Temperature 36.7 C 12/11/19 07:35 Temperature Source Tympanic 12/11/19 07:35 Pulse 54 L 12/11/19 07:35 Pulse Rhythm Regular 12/11/19 08:25 Respiratory Rate 17 12/11/19 07:35 Respiratory Effort 12/11/19 08:25 Respiratory Depth Normal 12/11/19 08:25 Respiratory Pattern Normal 12/11/19 08:25 Blood Pressure 165/71 H 12/11/19 07:35 Blood Pressure Position Sitting 12/10/19 16:53 Pulse Oximetry 93 L 12/11/19 08:05 Oxygen Delivery Method Nasal Cannula 12/11/19 08:05 Oxygen Flow Rate 2 12/11/19 08:05 Pain Level 0 12/11/19 07:35 Comment 12/10/19 19:28 Intake & Output 12/10/19 12/10/19 12/11/19 11:59 23:59 11:59 Intake Total 360 / 360 Balance 360 / 360 Weight 52.163 kg 54.1 kg Intake: Oral 360 / 360 Laboratory Results WBC 7.63 k/cumm (4.4-10.8) 12/11/19 06:04 RBC 4.11 m/cumm (4.00-5.20) 12/11/19 06:04 Hgb 12.5 g/dL (12.0-15.5) 12/11/19 06:04 Hct 39.3 % (36.0-46.0) 12/11/19 06:04 MCV 95.6 fL (80-95) H 12/11/19 06:04 MCH 30.4 pg (27.0-33.0) 12/11/19 06:04 MCHC 31.8 g/dL (32.0-36.0) L 12/11/19 06:04 RDW 14.0 % (11.7-14.6) 12/11/19 06:04 Plt Count 269 x1000/uL (130-400) 12/11/19 06:04 MPV 10.0 fL (8.0-11.0) 12/11/19 06:04 Immature Gran % 0.1 % 12/10/19 17:30 Neutrophils % 60.7 12/10/19 17:30 Lymphocytes % 27.9 12/10/19 17:30 Monocytes % 8.7 12/10/19 17:30 Eosinophils % 2.1 12/10/19 17:30 Basophils % 0.5 12/10/19 17:30 Absolute Neutrophils 4.59 k/cumm (1.2-6.7) 12/10/19 17:30 Absolute Lymphocytes 2.11 k/cumm (1.2-3.4) 12/10/19 17:30 Absolute Monocytes 0.66 k/cumm (0.11-0.7) 12/10/19 17: Absolute Eosinophils 0.16 k/cumm (0.0-0.7) 12/10/19 17: Absolute Basophils 0.04 k/cumm (0.0-0.2) 12/10/19 17:30 Sodium 142 mmol/L (136-145) 12/11/19 06:04 Potassium 3.6 mmol/L (3.5-5.1) 12/11/19 06:04 Chloride 101 mmol/L (98-107) 12/11/19 06:04 Carbon Dioxide 34.3 mmol/L (21.0-32.0) H 12/11/19 06:04 Anion Gap 6.7 mmol/L (3-11) 12/11/19 06:04 BUN 10 mg/dL (7-18) 12/11/19 06:04 Creatinine 0.79 mg/dL (0.55-1.02) 12/11/19 06:04 Estimated GFR/1.73 m2 >= 60.00 (mL/min/1.73m2) 12/11/19 06:04 Glucose 79 mg/dL (74-106) 12/11/19 06:04 Calcium 8.7 mg/dL (8.5-10.1) 12/11/19 06:04 Magnesium 1.8 mg/dL (1.8-2.4) 12/11/19 09:24 Total Bilirubin 1.1 mg/dL (0.2-1.0) H 12/10/19 17:30 AST 21 U/L (15-37) 12/10/19 17:30 ALT 10 U/L (14-59) L 12/10/19 17:30 Alkaline Phosphatase 99 U/L (46-116) 12/10/19 17:30 Total Protein 7.2 g/dL (6.4-8.2) 12/10/19 17:30 Albumin 3.4 g/dL (3.4-5.0) 12/10/19 17:30 TSH 1.99 uIU/mL (0.36-3.74) 12/10/19 17:30 Urine Color Yellow (Yellow) 12/10/19 17:04 Urine Clarity Clear (Clear) 12/10/19 17:04 Urine pH 7.5 (5-8) 12/10/19 17:04 Ur Specific [place] 1.015 (1.005-1.025) 12/10/19 17:04 Urine Protein Negative mg/dL (Negative) 12/10/19 17: Urine Ketones Negative mg/dL (Negative) 12/10/19 17:04 Urine Blood Trace-intact (Negative) H 12/10/19 17:04 Urine Nitrite Negative (Negative) 12/10/19 17: Urine Bilirubin Negative (Negative) 12/10/19 17:04 Urine Urobilinogen 1.0 EU/dL (Up TO 0.2) H 12/10/19 17:04 Ur Leukocyte Esterase Negative (Negative) 12/10/19 17:04 Urine RBC 3-5 HPF (0-2) H 12/10/19 17:04 Urine WBC 3-5 HPF (0-5) 12/10/19 17:04 Ur Epithelial Cells Few HPF (Negative) 12/10/19 17:04 Urine Crystals Negative HPF (Negative) 12/10/19 17:04 Urine Bacteria Few HPF (Negative) 12/10/19 17:04 Urine Casts Negative LPF (Negative) 12/10/19 17:04 Urine Mucus Negative (Negative) 12/10/19 17:04 Urine Other Negative (Negative) 12/10/19 17:04 Ur Culture Indicated? No 12/10/19 17:04 Urine Glucose Negative mg/dL (Negative) 12/10/19 17:04
[2019-12-11 11:19] VITALS: BP 138/79; PULSE 57; RESP 17; TEMP 36.5; O2SAT 95
--- NOTE | 2019-12-11 12:04 | DSE_ITS ---
Documented by User: Guadalupe Gentile NP 12/17/19 13:42 Date of service: 12/11/19 Time of Service: 12:04 DS: Diagnosis Discharge Diagnosis (1) Hallucinations: Status: Acute (2) Altered mental status: Status: Acute Discharge Plan Disposition Patient Disposition: HOME Condition: Serious Discharge Details Chief Complaint: GenMedical Clinical Impression: Altered mental status, Hallucinations Reason For Visit: AMS / HALLUCINATIONS Admit Date/Time: 12/10/19 20:23 Admit Provider: Kvng Patterson Attending Provider: Easton Fabian Primary Care Provider: Leann Messina V ED Provider: Silvio Pacheco Hospital Course Hospital Course: This is a 79-year-old woman who has recently started Wellbutrin for smoking cessation. She has been on it since 11/19/2019. After 14 days the dose was increased by her PCP. She does not want to stop the medicine because it is working and helping her quit smoking. Soon after beginning the Wellbutrin she began having altered thoughts, worsening insomnia, lack of appetite. Recently she has begun having visual hallucinations. She sees men and multiple trucks in her driveway. She saw her son and open the door for him in the middle of the night. She has seen boxes of bones and rats running around the floor. She reported this to her PCP who recommended stopping the Wellbutrin but because it was helping with her smoking cessation she decreased the dose but did not stop the medication. In the emergency room her exam was benign, her pulse was low at 50, her potassium low at 3.1. A head CT was negative. The urine showed 3-5 red cells and 3-5 white cells. She is admitted to [facility] for further work-up. She is placed on telemetry because of the bradycardia. The Wellbutrin is being held. . Overnight she remained hemodynamically stable and asymptomatic. By morning she feels she is returned to her baseline. Her son is at the bedside who also confirms that she is at her baseline. I had ordered a physical therapy evaluation for reports of unsteadiness at home but she states this is due to the medication and she declines a physical therapy consult inpatient. Also on exam she is reporting to me that she has lost 40 pounds over the sac last 6 months that this is on intentional and do to early satiety and feeling that the food is no longer going down , she says that she feels she needs to drink a lot of water to remove this feeling. She states she has not had an upper endoscopy. She denies any abdominal pain diarrhea or constipation black or tarry stools. I did offer her a surgical consult while she is here so she can discuss with general surgery and possibly have her endoscopy on this visit but she quickly declines and states she will follow-up outpatient with her primary care provider. She does report some intermittent nausea which she says has been ongoing for greater than several weeks. I will prescribe Zofran ODT for home use if needed for nausea. She is also motivated to quit smoking cigarettes and has nicotine patches at home which she states she will utilize and I will also dispense her Nicotrol inhaler for as needed use she has been advised to stop the Wellbutrin. Home Meds and New Rx's Prescriptions: New nicotine 14 mg/24 hr Patch 24 Hour 14 mg transdermal DAILY PRN PRNQty: 0 RF: 0 Nicotrol 10 mg Cartridge 30 cartridge inhalation Q3H PRN PRNQty: 0 RF: 0 ondansetron 4 mg Tablet,Disintegrating 4 mg PO Q8H PRN PRNQty: 10 RF: 0 Continued furosemide [Lasix] 20 MG tablet 20 mg PO DAILY RF: 0 aspirin [Aspir-81] 81 MG tablet,delayed release (DR/EC) 1 tab PO DAILY RF: 0 sertraline 100 MG tablet 150 mg PO DAILY RF: 0 [place] [facility] [place] Dose Instructions .ROUTE .MEDSUPPLY Qty: 1 RF: 0 ketoconazole 2 % Shampoo 1 applic TOPICAL PRN PRNRF: 0 ibuprofen 800 mg Tablet 800 mg PO TID PRNRF: 0 hydrocodone-acetaminophen 5-325 mg Tablet 1 tab PO BID PRNRF: 0 albuterol sulfate [ProAir HFA] 90 mcg/actuation Hfa Aerosol Inhaler 2 puff INHALATION Q6H PRNRF: 0 budesonide-formoterol [Symbicort] 160-4.5 mcg/actuation Hfa Aerosol Inhaler 2 puff INHALATION BID RF: 0 Incruse Ellipta 62.5 mcg/actuation Blister With Device 1 inh INHALATION DAILY RF: 0 cholecalciferol (vitamin D3) 2,000 unit Tablet,Chewable 2,000 unit PO DAILY RF: 0 ipratropium-albuterol 0.5 mg-3 mg(2.5 mg base)/3 mL solution for nebulization 3 ml UPD Q6H PRNRF: 0 isosorbide mononitrate 30 MG tablet extended release 24 hr 60 mg PO DAILY RF: 0 atorvastatin [Lipitor] 40 MG tablet 80 mg PO DAILY RF: 0 ropinirole [Requip] 0.25 MG tablet 0.5 mg PO HS RF: 0 pantoprazole 40 MG tablet,delayed release (DR/EC) 40 mg PO DAILY RF: 0 nitroglycerin [Nitrostat] 0.4 MG tablet, sublingual 0.4 mg Sublingual PRN PRNRF: 0 gabapentin 300 MG capsule 900 mg PO HS Qty: 90 RF: 0 metoprolol succinate 50 MG tablet extended release 24 hr 50 mg PO DAILY Qty: 30 RF: 0 morphine 15 MG tablet 15 mg PO TID PRN (Reason: Chest Pain) Qty: 42 RF: 0 Discontinued bupropion HCl (smoking deter) 150 mg Tablet Extended Release 12 Hr 150 mg PO BID RF: 0 Discharge Instructions Instructions: How to Stop Smoking (DC), Altered Mental Status (GEN) Additional Instructions: continue to work on stopping tobacco use. use your patches and nicotrol inhaler as directed. Stand Alone Forms: Nursing Discharge Form Referrals: Leann Messina MD [Primary Care Provider] - 12/19/19 2:45 pm Activity:: Activity as Tolerated Equipment/Supplies:: No Equipment Needed Diet:: As Tolerated Discharge Orders Discharge Orders: Discharge Order (Routine); Ordered 12/11/19 Ordered By: Guadalupe Gentile Discharge Data Discharge Date/Time-TO BE ENTERED AT DEPARTURE: 12/11/19 13:21 DS: Summary Status at Discharge Functional status at discharge: uses cane/walker Overall status at discharge: patient is progressing back to baseline Mental Status: mental status grossly normal Speech and Movement: speech and movement normal Mood: congruent mood Affect: normal affect Exam Narrative Exam Narrative: Audrey is awake, alert and oriented. She is pleasant and cooperative. Her respirations are even and unlabored. Her lung sounds are mildly diminished throughout, no rales, few scattered expiratory wheezes noted. Her heart has a regular rate and rhythm with no clicks, gallops, or rubs. She moves all of her extremities equally. Extremities are without clubbing, cyanosis or edema. Psych Mental Status: mental status grossly normal Speech and Movement: speech and movement normal Mood: congruent mood Affect: normal affect DS: Data Vitals/I&O Vitals and I&O: Vital Signs Temperature 36.5 C 12/11/19 11:19 Temperature Source Tympanic 12/11/19 11:19 Pulse 57 L 12/11/19 11:19 Pulse Rhythm Regular 12/11/19 08:25 Respiratory Rate 17 12/11/19 11:19 Respiratory Effort 12/11/19 08:25 Respiratory Depth Normal 12/11/19 08:25 Respiratory Pattern Normal 12/11/19 08:25 Blood Pressure 138/79 12/11/19 11:19 Blood Pressure Position Sitting 12/10/19 16:53 Pulse Oximetry 95 12/11/19 11:19 Oxygen Delivery Method Nasal Cannula 12/11/19 11:19 Oxygen Flow Rate 2 12/11/19 11:19 Pain Level 0 12/11/19 11:19 Comment 12/10/19 19:28 Intake & Output 12/10/19 12/11/19 12/11/19 23:59 11:59 23:59 Intake Total 360 / 360 Balance 360 / 360 Weight 52.163 kg 54.1 kg Intake: Oral 360 / 360 Data Completed and Pending Labs on day of discharge: Labs from last 24 hours 12/11/19 12/11/19 12/11/19 09:24 06:04 06:04 WBC 7.63 RBC 4.11 Hgb 12.5 Hct 39.3 MCV 95.6 H MCH 30.4 MCHC 31.8 L RDW 14.0 Plt Count 269 MPV 10.0 Immature Gran % Neutrophils % Lymphocytes % Monocytes % Eosinophils % Basophils % Absolute Neutrophils Absolute Lymphocytes Absolute Monocytes Absolute Eosinophils Absolute Basophils Sodium 142 Potassium 3.6 Chloride 101 Carbon Dioxide 34.3 H Anion Gap 6.7 BUN 10 Creatinine 0.79 Estimated GFR/1.73 m2 >= 60.00 Glucose 79 Calcium 8.7 Magnesium 1.8 Total Bilirubin AST ALT Alkaline Phosphatase Total Protein Albumin TSH Urine Color Urine Clarity Urine pH Ur Specific [place] Urine Protein Urine Ketones Urine Blood Urine Nitrite Urine Bilirubin Urine Urobilinogen Ur Leukocyte Esterase Urine RBC Urine WBC Ur Epithelial Cells Urine Crystals Urine Bacteria Urine Casts Urine Mucus Urine Other Ur Culture Indicated? Urine Glucose 12/10/19 12/10/19 12/10/19 17:30 17:30 17:04 WBC 7.57 RBC 3.98 L Hgb 12.3 Hct 37.7 MCV 94.7 MCH 30.9 MCHC 32.6 RDW 13.9 Plt Count 255 MPV 9.9 Immature Gran % 0.1 Neutrophils % 60.7 Lymphocytes % 27.9 Monocytes % 8.7 Eosinophils % 2.1 Basophils % 0.5 Absolute Neutrophils 4.59 Absolute Lymphocytes 2.11 Absolute Monocytes 0.66 Absolute Eosinophils 0.16 Absolute Basophils 0.04 Sodium 134 L Potassium 3.1 L Chloride 96 L Carbon Dioxide 34.4 H Anion Gap 3.6 BUN 9 Creatinine 0.83 Estimated GFR/1.73 m2 >= 60.00 Glucose 83 Calcium 8.6 Magnesium Total Bilirubin 1.1 H AST 21 ALT 10 L Alkaline Phosphatase 99 Total Protein 7.2 Albumin 3.4 TSH 1.99 Urine Color Yellow Urine Clarity Clear Urine pH 7.5 Ur Specific [place] 1.015 Urine Protein Negative Urine Ketones Negative Urine Blood Trace-intact H Urine Nitrite Negative Urine Bilirubin Negative Urine Urobilinogen 1.0 H Ur Leukocyte Esterase Negative Urine RBC 3-5 H Urine WBC 3-5 Ur Epithelial Cells Few Urine Crystals Negative Urine Bacteria Few Urine Casts Negative Urine Mucus Negative Urine Other Negative Ur Culture Indicated? No Urine Glucose Negative [facility] Medical History Adjustment reaction with prolonged depressive reaction (Acute) CAD S/P percutaneous coronary angioplasty (Acute) Chest pain (Acute) COPD with exacerbation (Acute) Insomnia (Acute) Restless leg syndrome (Acute) Rib pain (Acute) Tobacco abuse (Acute) Surgical History History of appendectomy (Chronic) History of colon resection (Chronic) History of hysterectomy (Chronic) History of tonsillectomy (Chronic) History of total right knee replacement (Acute) Family History Son Lymphoma in remission Son History of melanoma Mother , at age 65 CAD (coronary artery disease) Myocardial infarction CHF (congestive heart failure) Father , at age 66 CAD (coronary artery disease) Myocardial infarction Social History Smoking/Tobacco Use Status: Current every day Tobacco Type: cigarettes Quit status: has quit before Alcohol Intake: never Drug use: Never Substance use type: does not use Adopted: No Caregiver/Support person: No Foster care: No Household members: children Housing: house Number of Children: 6 Pets and animals: Yes Do you feel safe in your relationship?: Yes Additional Social history: Had 6 sons. One of suicide by drowning at age 42 in 2001. Documented by User: Easton Fabian 12/17/19 17:05 Discharge Plan Disposition Patient Disposition: HOME Condition: Serious Discharge Details Chief Complaint: GenMedical Clinical Impression: Altered mental status, Hallucinations Reason For Visit: AMS / HALLUCINATIONS Admit Date/Time: 12/10/19 20:23 Admit Provider: Kvng Patterson Attending Provider: Easton Fabian Primary Care Provider: Leann Messina V ED Provider: Silvio Pacheco Hospital Course Hospital Course: This is a 79-year-old woman who has recently started Wellbutrin for smoking cessation. She has been on it since 11/19/2019. After 14 days the dose was increased by her PCP. She does not want to stop the medicine because it is working and helping her quit smoking. Soon after beginning the Wellbutrin she began having altered thoughts, worsening insomnia, lack of appetite. Recently she has begun having visual hallucinations. She sees men and multiple trucks in her driveway. She saw her son and open the door for him in the middle of the night. She has seen boxes of bones and rats running around the floor. She reported this to her PCP who recommended stopping the Wellbutrin but because it was helping with her smoking cessation she decreased the dose but did not stop the medication. In the emergency room her exam was benign, her pulse was low at 50, her potassium low at 3.1. A head CT was negative. The urine showed 3-5 red cells and 3-5 white cells. She is admitted to [facility] for further work-up. She is placed on telemetry because of the bradycardia. The Wellbutrin is being held. . Overnight she remained hemodynamically stable and asymptomatic. By morning she feels she is returned to her baseline. Her son is at the bedside who also confirms that she is at her baseline. I had ordered a physical therapy evaluation for reports of unsteadiness at home but she states this is due to the medication and she declines a physical therapy consult inpatient. Also on exam she is reporting to me that she has lost 40 pounds over the sac last 6 months that this is on intentional and do to early satiety and feeling that the food is no longer going down , she says that she feels she needs to drink a lot of water to remove this feeling. She states she has not had an upper endoscopy. She denies any abdominal pain diarrhea or constipation black or tarry stools. I did offer her a surgical consult while she is here so she can discuss with general surgery and possibly have her endoscopy on this visit but she quickly declines and states she will follow-up outpatient with her primary care provider. She does report some intermittent nausea which she says has been ongoing for greater than several weeks. I will prescribe Zofran ODT for home use if needed for nausea. She is also motivated to quit smoking cigarettes and has nicotine patches at home which she states she will utilize and I will also dispense her Nicotrol inhaler for as needed use she has been advised to stop the Wellbutrin. Home Meds and New Rx's Prescriptions: New nicotine 14 mg/24 hr Patch 24 Hour 14 mg transdermal DAILY PRN PRNQty: 0 RF: 0 Nicotrol 10 mg Cartridge 30 cartridge inhalation Q3H PRN PRNQty: 0 RF: 0 ondansetron 4 mg Tablet,Disintegrating 4 mg PO Q8H PRN PRNQty: 10 RF: 0 Continued furosemide [Lasix] 20 MG tablet 20 mg PO DAILY RF: 0 aspirin [Aspir-81] 81 MG tablet,delayed release (DR/EC) 1 tab PO DAILY RF: 0 sertraline 100 MG tablet 150 mg PO DAILY RF: 0 (DME) nebulizers misc See Dose Instructions .ROUTE .MEDSUPPLY Qty: 1 RF: 0 ketoconazole 2 % Shampoo 1 applic TOPICAL PRN PRNRF: 0 ibuprofen 800 mg Tablet 800 mg PO TID PRNRF: 0 hydrocodone-acetaminophen 5-325 mg Tablet 1 tab PO BID PRNRF: 0 albuterol sulfate [ProAir HFA] 90 mcg/actuation Hfa Aerosol Inhaler 2 puff INHALATION Q6H PRNRF: 0 budesonide-formoterol [Symbicort] 160-4.5 mcg/actuation Hfa Aerosol Inhaler 2 puff INHALATION BID RF: 0 Incruse Ellipta 62.5 mcg/actuation Blister With Device 1 inh INHALATION DAILY RF: 0 cholecalciferol (vitamin D3) 2,000 unit Tablet,Chewable 2,000 unit PO DAILY RF: 0 ipratropium-albuterol 0.5 mg-3 mg(2.5 mg base)/3 mL solution for nebulization 3 ml UPD Q6H PRNRF: 0 isosorbide mononitrate 30 MG tablet extended release 24 hr 60 mg PO DAILY RF: 0 atorvastatin [Lipitor] 40 MG tablet 80 mg PO DAILY RF: 0 ropinirole [Requip] 0.25 MG tablet 0.5 mg PO HS RF: 0 pantoprazole 40 MG tablet,delayed release (DR/EC) 40 mg PO DAILY RF: 0 nitroglycerin [Nitrostat] 0.4 MG tablet, sublingual 0.4 mg Sublingual PRN PRNRF: 0 gabapentin 300 MG capsule 900 mg PO HS Qty: 90 RF: 0 metoprolol succinate 50 MG tablet extended release 24 hr 50 mg PO DAILY Qty: 30 RF: 0 morphine 15 MG tablet 15 mg PO TID PRN (Reason: Chest Pain) Qty: 42 RF: 0 Discontinued bupropion HCl (smoking deter) 150 mg Tablet Extended Release 12 Hr 150 mg PO BID RF: 0 Discharge Instructions Instructions: How to Stop Smoking (DC), Altered Mental Status (GEN) Additional Instructions: continue to work on stopping tobacco use. use your patches and nicotrol inhaler as directed. Stand Alone Forms: Nursing Discharge Form Referrals: Leann Messina MD [Primary Care Provider] - 12/19/19 2:45 pm Activity:: Activity as Tolerated Equipment/Supplies:: No Equipment Needed Diet:: As Tolerated Discharge Orders Discharge Orders: Discharge Order (Routine); Ordered 12/11/19 Ordered By: Guadalupe Gentile Discharge Data Discharge Date/Time-TO BE ENTERED AT DEPARTURE: 12/11/19 13:21 [facility] Medical History Adjustment reaction with prolonged depressive reaction (Acute) CAD S/P percutaneous coronary angioplasty (Acute) Chest pain (Acute) COPD with exacerbation (Acute) Insomnia (Acute) Restless leg syndrome (Acute) Rib pain (Acute) Tobacco abuse (Acute) Surgical History History of appendectomy (Chronic) History of colon resection (Chronic) History of hysterectomy (Chronic) History of tonsillectomy (Chronic) History of total right knee replacement (Acute) Family History Son Lymphoma in remission Son History of melanoma Mother , at age 65 CAD (coronary artery disease) Myocardial infarction CHF (congestive heart failure) Father , at age 66 CAD (coronary artery disease) Myocardial infarction Social History Smoking/Tobacco Use Status: Current every day Tobacco Type: cigarettes Quit status: has quit before Alcohol Intake: never Drug use: Never Substance use type: does not use Adopted: No Caregiver/Support person: No Foster care: No Household members: children Housing: house Number of Children: 6 Pets and animals: Yes Do you feel safe in your relationship?: Yes Additional Social history: Had 6 sons. One of suicide by drowning at age 42 in 2001.
[2019-12-11 12:28] VITALS: PULSE 49
--- NOTE | 2019-12-11 14:26 | PT.INTREAT ---
Date of service: 12/11/19 Time of Service: 14:26 PT Notes Visit Reasons: AMS / HALLUCINATIONS Patient is a 79-year-old female with diagnosis of hallucinations who was discharged from hospital around noon time today. No skilled services were provided. Thank you very much for this referral. Madalyn Lucia PT, DPT, CLT [facility] In[facility] at [facility]
--- NOTE | 2019-12-11 15:58 | CHAPLAIN ---
Audrey was sitting up in her chair when I visited. She looked tired and seem to be somber. She told me that she lived in [place], but didn't seem interested in sharing more information or having a longer conversation. I offered support and let her know how to reach me if she wanted a visit later.
--- NOTE | 2019-12-11 18:19 | PDOC.CMIN ---
- If Service Date Differs Date of service: 12/11/19 Time of Service: 18:19 Care Management Initial Assess REASON FOR HOSPITALIZATION:: AMS/Hallucinations PAST MEDICAL HISTORY/PAST SURGICAL HISTORY:: Medical History . Adjustment reaction with prolonged depressive reaction (Acute). CAD S/P percutaneous coronary angioplasty (Acute). Chest pain (Acute). COPD with exacerbation (Acute). Insomnia (Acute). Restless leg syndrome (Acute). Rib pain (Acute). Tobacco abuse (Acute). Surgical History . History of appendectomy (Chronic). History of colon resection (Chronic). History of hysterectomy (Chronic). History of tonsillectomy (Chronic). History of total right knee replacement (Acute) PREVIOUS FUNCTIONAL STATUS/SOCIAL/FAMILY SUPPORTS:: Audrey lives in [place] on her own with her dog, cat and ferret. She has adult children who live nearby and support her. She is independent at baseline and still driving. CURRENT FUNCTIONAL STATUS:: Audrey was sitting up in her chair when CM met with her. Her son, Elio, was in the room. She reported that she was feeling better today, and she would like to return home. She stated that she is independent and is not interested in additional services at this time. CM will continue to follow. ADVANCE DIRECTIVES:: None on file. Has patient been provided with information about the portal?: No Did the patient sign up for the portal?: No CODE STATUS:: DNR/DNI INSURANCE COVERAGE / FINANCIAL ISSUES:: MCR/ MCR Replacement ([facility])/ Financial Assist 100% CURRENT HOME/COMMUNITY SERVICES/EQUIPMENT:: Audrey does not currently have any equipment or services at home. PRIMARY CARE PHYSICIAN:: Leann Messina POTENTIAL DISCHARGE NEEDS:: Evaluations for further needs, follow up appointments PATIENT/FAMILY EDUCATION NEEDS:: Review discharge instructions regarding activity levels and medications, discussion of self care needs including ask me three ANTICIPATED BARRIERS TO DISCHARGE:: None identified at this time TRANSPORTATION:: Audrey's son, Elio will drive her home via private vehicle. PLAN:: Anticipate Audrey will return home with no additional services once medically cleared. She will follow up with her PCP, as recommended. Her son, Elio will drive her home via private vehicle. CM will continue to follow.
--- NOTE | 2019-12-11 18:40 | PDOC.CMDIS ---
- If Service Date Differs Date of service: 12/11/19 Time of Service: 18:40 LACE Index Scoring Tool - Questions: Length of Stay (in days): 2 Acuity (Admit via E.D.?): Yes Comorbidities: Chronic Pulmonary Disease E.D. Visits: 1 - Answers: Total Score: 8 Risk of Readmission: Low Risk Care Management Discharge Reason for Hospitalization: AMS/Hallucinations Discharge Plan: Audrey will return home with no additional services at this time. Her son Elio will drive her home via private vehicle. She will follow up with her PCP, as recommended. She is agreeable to the plan. Patient/Family Education Needs: Review discharge instructions regarding activity levels and medications, discussion of self care needs including ask me three
== END 2019-12-11 13:21 | disposition home or self-care (01) | DRG 125 ==
LOC: ER 19:15 → MS 20:54
PROVIDERS: Nurse Practitioner Acute Care; Admitting Provider Family Medicine; Emergency Provider Physician Assistant; PCP Family Medicine; Visit Provider Family Medicine
DX: R44.1 Visual hallucinations (principal); R41.82 Altered mental status, unspecified; T43.295A Adverse effect of other antidepressants, initial encounter; R00.1 Bradycardia, unspecified; R26.81 Unsteadiness on feet
CPT/HCPCS: 36415; 80048; 80053; 85027; 94640; 99222; 99238; 99285; J1650; 70450; 81003; 81015; 83735; 84443; 85025

== ENCOUNTER → 2020-01-15 10:42 | Outpatient (BNVA) | payer OTHER, SELFPAY | PROVIDERS: PCP Family Medicine; Referring Provider Family Medicine; Visit Provider Nurse Practitioner Gerontology | DX: N28.89 Other specified disorders of kidney and ureter (principal); N32.81 Overactive bladder; R31.29 Other microscopic hematuria; I10 Essential (primary) hypertension; J44.9 Chronic obstructive pulmonary disease, unspecified; F17.210 Nicotine dependence, cigarettes, uncomplicated | CPT/HCPCS: 81003; 99204; 99215 ==

== ENCOUNTER 2020-02-14 01:47 | Outpatient (CLI) | payer OTHER, SELFPAY ==
--- NOTE | 2020-02-14 10:40 | DI.CT_ITS ---
EXAM: CT CHEST W CLINICAL HISTORY: ESOPHAGEAL DYSPHAGIA,R13.14,EPIGASTRIC DISCOMFORT,R10.13 TECHNIQUE: Imaging Protocol: Axial computed tomography images with coronal and sagittal reformatted images were created and reviewed CONTRAST MATERIAL: Intravenous: Omnipaque 350 Contrast volume:structured data in ml. COMPARISON: CT CHEST WO CONTRAST from 04/24/2017 FINDINGS: Tracheobronchial tree: Patent where visualized. Mediastinum and Gin: No dominant adenopathy or fluid collection. There is mild asymmetric thickening at the distal esophagus at the gastroesophageal junction. Pulmonary parenchyma: No consolidation or dominant measurable mass. Mild emphysematous changes are se en in the lungs. There is scarring or atelectasis in the lung bases. Pleura: No effusion or pneumothorax. Heart: The heart is not dilated. Coronary artery calcifications and/or stents are present. No perica rdial effusion is present. Aorta: There is a 4.5 cm ascending thoracic aortic aneurysm. Atherosclerosis. Lymph nodes: Within normal limits. Bones: Degenerative changes are present. IMPRESSION: 1. Mild asymmetric thickening in the distal esophagus. An inflammatory/infectious process or neoplas m cannot be excluded. Follow-up with barium examination or upper endoscopy is recommended. DATA REPOSITORY: All CT scans at this facility are submitted to the National Radiology Data Registry (NRDR) Dose Index Registry (DIR) with the [employer] ([employer]). RADIATION OPTIMIZATION: All CT scans at this facility use at least one of these dose optimization te chniques: automated exposure control; mA and/or kV adjustment per patient size (includes targeted exa ms where dose is matched to clinical indication); or iterative reconstruction.
== END 2020-02-14 02:07 ==
PROVIDERS: PCP Family Medicine; Visit Provider Family Medicine
DX: R13.14 Dysphagia, pharyngoesophageal phase (principal); R10.13 Epigastric pain; I71.4 Abdominal aortic aneurysm, without rupture; R31.9 Hematuria, unspecified; N28.89 Other specified disorders of kidney and ureter; N20.0 Calculus of kidney; N28.1 Cyst of kidney, acquired
CPT/HCPCS: 71260

== ENCOUNTER 2020-02-18 10:56 | Emergency (ER) | payer OTHER, SELFPAY ==
[2020-02-18] VITALS (32 sets, daily range): BP systolic 99–155; BP diastolic 42–76; PULSE 46–95; RESP 13–27; TEMP 36.7; O2SAT 40–100
--- NOTE | 2020-02-18 10:45 | DI.CT_ITS ---
EXAM: CT THORAX ABD/PEL CTA CLINICAL HISTORY: epigastric, and diffuse abd pain, c/o known AAA. TECHNIQUE: Imaging Protocol: Axial computed tomography images with coronal and sagittal reformatted images were created and reviewed CONTRAST MATERIAL: Intravenous: Omnipaque 350 Contrast volume 85 ml Contrast route:IV - Oral: No COMPARISON: CT CHEST W from 02/14/2020 CT ABDOMEN PELVIS WO/W from 02/14/2020 FINDINGS: CHEST: Heart and great vessels: There is no evidence pulmonary emboli or aortic dissection. Atherosclerotic changes are again noted throughout the thoracic aorta. The ascending aorta again measures 4.5 cm. C oronary artery calcifications are seen. There is dilatation of the left atrium as well as left ventr icle. There are no pleural or pericardial effusions. Adenopathy: None. Lungs: Lungs show mild motion and mild dependent changes. Asymmetry is changes are again noted. No pulmonary nodules, mass or infiltrate. Bones: There is no evidence of spine or rib fracture. Degenerative changes are seen in the thoracic s pine. ABDOMEN: Liver: Normal density. No measurable mass. Gallbladder and biliary tract: No radiodense calculus or dilation. Pancreas: Normal density, no abnormal calcifications or inflammatory process. Spleen: Normal. Kidneys: Normal size, contour and axis. No radiodense stones or obstructive uropathy. No masses seen. Bilateral renal cysts are again noted. Adrenal glands: No masses seen. Abdominal Aorta: Atherosclerotic changes are again noted along the abdominal aorta. There is no evid ence of dissection or leak. The maximum dimension 3.4 cm. The branch vessels appear patent. The il iac arteries also show significant atherosclerotic change.. PELVIS: Bladder: No gross wall thickening, focal mass or stones. Bowel: There is dilatation of loops of small bowel in the mid and lower abdomen centrally with decomp ressed loops of small bowel distally. A midline surgical scar is seen. The patient is status post h ysterectomy. There is also a rectal anastomosis. The area of the anastomosis is unremarkable. The colon contains a small amount of stool.. Peritoneal cavity: A small amount of fluid is seen around the liver and spleen, along the paracolic g utter and low pelvis. Bones: Degenerative disc changes are seen in the lumbar spine. No compression fracture is seen. Lymph nodes: Unremarkable. Impression: Stable appearance of thoracic and abdominal aortic aneurysm and atherosclerotic change. No evidence of dissection. Dilatation of small bowel in the central and lower abdomen with decompressed loops distally, consiste nt with obstruction. Small amount of ascites. DATA REPOSITORY: All CT scans at this facility are submitted to the National Radiology Data Registry (NRDR) Dose Index Registry (DIR) with the [employer] (ACR). RADIATION OPTIMIZATION: All CT scans at this facility use at least one of these dose optimization te chniques: automated exposure control; mA and/or kV adjustment per patient size (includes targeted exa ms where dose is matched to clinical indication); or iterative reconstruction.
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
[2020-02-18] MEDS: Normal Saline - Diluent 50 ML VIAL IV (11:21)
[2020-02-18 11:38] LABS: Abs Immature Grans 0.02 k/cumm (0.0-0.09); Absolute Basophil Count 0.02 k/cumm (0.0-0.2); Absolute Eosinophil Count 0.05 k/cumm (0.0-0.7); Absolute Lymphocyte Count 0.85 k/cumm (1.2-3.4); Absolute Monocyte Count 0.37 k/cumm (0.11-0.7); Absolute Neutrophil Count 8.67 k/cumm (1.2-6.7); Basophils % 0.2; Eosinophils % 0.5; HCT 43.4 % (36.0-46.0); HGB 13.9 g/dL (12.0-15.5); Immature Grans % 0.2 %; Lymphocytes % 8.5; Mean Corpuscular Hemoglobin 30.8 pg (27.0-33.0); Mean Platelet Volume 10.4 fL (8.0-11.0); Monocytes % 3.7; Neutrophils % 86.9; Platelet Count 255 x1000/uL (130-400); RBC 4.52 m/cumm (4.00-5.20); White Blood Cell Count 9.98 k/cumm (4.4-10.8)
[2020-02-18 11:49] LABS: PTT Activated 25.8 sec (21.0-31.4); Prothrombin Time 10.1 sec (9.3-11.0)
[2020-02-18 12:01] LABS: ALT 20 U/L (14-59); AST 28 U/L (15-37); Albumin 3.6 g/dL (3.4-5.0); Alkaline Phosphatase 94 U/L (46-116); Anion Gap 3.1 mmol/L (3-11); BUN 12 mg/dL (7-18); Bilirubin, Total 0.8 mg/dL (0.2-1.0); CO2 31.9 mmol/L (21.0-32.0); CREATININE 0.79 mg/dL (0.55-1.02); Chloride 103 mmol/L (98-107); Glucose 99 mg/dL (74-106); Lipase 144 U/L (73-393); Potassium 3.7 mmol/L (3.5-5.1); Sodium 138 mmol/L (136-145); Total Protein 7.7 g/dL (6.4-8.2)
[2020-02-18 12:02] LABS: Troponin I 0.21 ng/Ml (<0.06)
--- NOTE | 2020-02-18 12:12 | NUR.NOTE ---
Nursing Note:Attempted IV for 18G via US and multiple attempts (6) for IV. Radiology aware and states #20 LFA will ok ok to use, will adjust infusion rate for this.
[2020-02-18] MEDS: Omnipaque 350 MG/ML 100 ML BTL IJ (12:37)
[2020-02-18] MEDS: Aspirin 325 MG TAB PO (13:10)
[2020-02-18 13:31] LABS: Troponin I 0.53 ng/Ml (<0.06)
[2020-02-18 14:43] LABS: Bilirubin Negative (Negative); Blood Negative (Negative); Clarity Clear (Clear); Glucose Negative (Negative); Ketones Negative (Negative); Leukocyte Esterase Negative (Negative); Nitrite Negative (Negative); pH 7.5 (5-8)
[2020-02-18 14:50] LABS: Bacteria Rare HPF (Negative); C & S Indicated? No; Casts Negative LPF (Negative); Crystals Negative HPF (Negative); Epithelial Cells Few HPF (Negative); Mucus Negative (Negative); Other Cells Negative (Negative); RBC 0-2 HPF (0-2); WBC Negative HPF (0-5)
== END 2020-02-18 14:37 | disposition short-term general hospital (02) ==
PROVIDERS: Emergency Provider Physician Assistant; PCP Family Medicine
DX: K56.699 Other intestinal obstruction unspecified as to partial versus complete obstruction (principal); R74.8 Abnormal levels of other serum enzymes; Z86.79 Personal history of other diseases of the circulatory system; J44.9 Chronic obstructive pulmonary disease, unspecified; F17.210 Nicotine dependence, cigarettes, uncomplicated
CPT/HCPCS: 74177; 80053; 83690; 86850; 86900; 86901; 93005; 96374; 99285; 81003; 81015; 84484; 85025; 85610; 85730; 93010; J3490

== ENCOUNTER → 2020-05-04 12:42 | Outpatient (BNVA) | payer OTHER, SELFPAY, MEDICARE | PROVIDERS: PCP Family Medicine; Referring Provider Family Medicine; Visit Provider Internal Medicine Cardiovascular Disease | DX: I25.10 Atherosclerotic heart disease of native coronary artery without angina pectoris (principal); Z98.61 Coronary angioplasty status; J44.9 Chronic obstructive pulmonary disease, unspecified; F17.210 Nicotine dependence, cigarettes, uncomplicated | CPT/HCPCS: 99214 ==

== ENCOUNTER 2020-05-11 00:27 | Outpatient (CLI) | payer OTHER, SELFPAY ==
--- NOTE | 2020-05-11 07:15 | DI.NM_ITS ---
APPROVED REPORT Exam: Pharmacologic Patient Location: Out-Patient Room/Bed: Stress Nurse: Tameka Londono RN BMI: 19.93 Baseline Rhythm: Sinus Bradycardia Indications: CAD. Dyspnea. Percutaneous Coronary Angioplasty Medical History Medical History: HTN, Hyperlipidemia, Smoking Allergies: Sulfa Cardiac Risk Factors: HTN, Hyperlipidemia, FHX of CAD, Smoking, COPD Previous Cardiac Procedures: Percutaneous Coronary Angioplasty Exercise History: Indeterminate Physical Disabilities: Legs Lung Sounds: Clear to auscultation Heart Sounds: Regular Stress Test Details Test: Pharmacologic stress testing performed using 0.4 mg of regadenoson per 5 mL given IV over 10 s econds. Nuclear Acquisition: Rest Tc-99m/Stress Tc-99m 1 day Rest Isotope: Tc-99m Sestamibi. Dose: 10.5 Date: 05/11/2020 Injection Time: 1040 Stress Isotope: Tc-99m Sestamibi. Dose: 32.0 Date: 05/11/2020 Injection Time: 1225 HR Resting HR Supine: 54 bpm Max Heart Rate (APMHR): 142 bpm Target HR (85% APMHR): 120 bpm Max HR Achieved: 84 bpm % of APMHR: 59 HR response to stress: Normal HR response to stress BP Resting BP Supine: 122/76 mmHg Max BP: 158/72 mmHg Recovery BP: 124/78 mmHg BP response to stress: Normal blood pressure response to stress. ECG Resting ECG: Sinus Bradycardia Stress ECG: Sinus Rhythm ST Change: No significant ST segment changes Arrhythmia: None Recovery ECG: Sinus Rhythm Recovery ST Change: No significant ST segment changes, Recovery Arrhythmia: None Stress ECG Conclusion 1. Echocardiogram showed voltage criteria for left ventricular hypertrophy 2. This was a pharmacologic myocardial perfusion imaging study. Peak heart rate was 59% of maximal p redicted for age 3. Electrocardiographically the test was nondiagnostic due to inadequate heart rate 4. There were no significant dysrhythmias Stress Test Summary STAGE HR BP Symptoms NOTES Supine 54 122/76 1 min post Lexiscan injection 76 158/72 Stomach upset 3 min post Lexiscan injection 79 118/80 6 min post Lexiscan injection 78 124/78 stomach discomfort subsided. MPI Conclusion Myocardial perfusion suggests apical and anteroapical ischemia EF is 48% Radiologist Interpretation Radiologist Interpretation by: Geovani Wong MD Interpretation Date/Time: 05/11/2020 16:16:07
[2020-05-11] MEDS: Regadenoson 0.4 MG/5 ML SYR IVP (12:47)
== END 2020-05-11 00:47 ==
PROVIDERS: PCP Family Medicine; Visit Provider Internal Medicine Cardiovascular Disease
DX: I25.10 Atherosclerotic heart disease of native coronary artery without angina pectoris (principal); R06.09 Other forms of dyspnea; I10 Essential (primary) hypertension; E78.5 Hyperlipidemia, unspecified; F17.210 Nicotine dependence, cigarettes, uncomplicated; Z82.49 Family history of ischemic heart disease and other diseases of the circulatory system
CPT/HCPCS: 78452; 93016; 93018; 93017; J2785

== ENCOUNTER → 2020-05-28 14:28 | Outpatient (BNVA) | payer OTHER, SELFPAY | PROVIDERS: PCP Family Medicine; Referring Provider Family Medicine; Visit Provider Internal Medicine Cardiovascular Disease | DX: I25.10 Atherosclerotic heart disease of native coronary artery without angina pectoris (principal); Z98.61 Coronary angioplasty status; R07.89 Other chest pain; J44.9 Chronic obstructive pulmonary disease, unspecified; F17.210 Nicotine dependence, cigarettes, uncomplicated | CPT/HCPCS: 99214 ==

== ENCOUNTER 2020-07-17 03:10 | Outpatient (CLI) | payer OTHER, SELFPAY ==
--- NOTE | 2020-07-17 15:03 | DI.CTLCSR_ITS ---
EXAM: CT CHEST LUNG CANCER SCREEN CLINICAL HISTORY: SMOKER, F17.210, SCREENING FOR LUNG CA TECHNIQUE: COMPARISON: CT CT CHEST W from 02/14/[address] THORAX ABD/PEL CTA from 02/18/2020 FINDINGS: CT examination of the chest was performed without contrast administration utilizing low-dose lung can cer screening protocol. Examination is compared with prior chest CT of January 2020. Images obtained through the upper show grossly appearance of visualized portions spleen. There is an aortic 32 in diameter. There is a descending thoracic aortic aneurysm measuring 40 millimeters in. There is ectasia of ascending aorta 42 millimeters. No mediastinal or hilar adenopathy. No pleural effusion. There is question of a new area nodularity seen centrally in right upper lobe adjacent to the hilum, the lack of contrast material makes this difficult to assess. Calcified pulmonary nodule noted in ri ght upper lobe. Noncalcified nodule seen bilaterally in the lungs, largest about 4 millimeters in di ameter right upper lobe. Additional evaluation with contrast enhanced CT suggested to evaluate the possibility right perihilar lung nodule. IMPRESSION: Lung RADS Cat 0 - Incomplete examination / additional imaging requested A contrast enhanced chest CT is requested to evaluate a possible area of perihilar nodularity on the right, intrapulmonary nodule not excluded. RADIATION DOSE DELIVERED: 80.15mGy.cm Total DLP
== END 2020-07-17 03:30 ==
PROVIDERS: PCP Family Medicine; Visit Provider Family Medicine
DX: F17.210 Nicotine dependence, cigarettes, uncomplicated (principal); R91.8 Other nonspecific abnormal finding of lung field
CPT/HCPCS: G0297

== ENCOUNTER → 2020-08-04 08:57 | Outpatient (BNVA) | payer OTHER, SELFPAY | PROVIDERS: PCP Family Medicine; Referring Provider Family Medicine; Visit Provider Internal Medicine Cardiovascular Disease | DX: I25.10 Atherosclerotic heart disease of native coronary artery without angina pectoris (principal); Z98.61 Coronary angioplasty status; J44.9 Chronic obstructive pulmonary disease, unspecified; F17.210 Nicotine dependence, cigarettes, uncomplicated | CPT/HCPCS: 99214 ==

== ENCOUNTER 2020-08-14 04:49 | Outpatient (CLI) | payer OTHER, SELFPAY ==
[2020-08-14 12:24] LABS: CREATININE 0.84 mg/dL (0.55-1.02)
--- NOTE | 2020-08-14 13:15 | DI.CT_ITS ---
EXAM: CT CHEST W CLINICAL HISTORY: F/U ABNL CT,R91.8,RUL NODULE,H/O LOWER ESOPHAGEAL THICKENING TECHNIQUE: Imaging Protocol: Axial computed tomography images with coronal and sagittal reformatted images were created and reviewed CONTRAST MATERIAL: Intravenous: Omnipaque 350 Contrast volume:70 mL. COMPARISON: CT CT CHEST LUNG CANCER SCREEN from 07/17/2020 FINDINGS: Tracheobronchial tree: Patent where visualized. Mediastinum and Gin: No dominant adenopathy or fluid collection. The esophagus is largely collapsed and difficult to evaluate. No gross evidence of an esophageal mass is seen. Pulmonary parenchyma: No consolidation or dominant measurable mass. Scarring in the lungs. There is a 4 mm noncalcified pulmonary nodule in the left upper lobe anteriorly. There is a 0.6 cm nodule in the right suprahilar region. Pleura: No effusion or pneumothorax. Heart: Mild cardiomegaly. Moderate to severe coronary artery calcification. No significant pericard ial effusion. Aorta: Unchanged aneurysmal dilatation of the thoracic aorta. Atherosclerosis. Upper abdomen: Bilateral renal cysts. Lymph nodes: Within normal limits. Bones: Degenerative changes. Soft tissues: Unremarkable. IMPRESSION: 1. Bilateral pulmonary nodules. The largest measures 0.6 cm. Recommended follow examination in 1 ye ar. 2. Limited evaluation of the esophagus. If there is concern for is often G0 abnormality barium swall ow or upper endoscopy should be considered. RADIATION DOSE DELIVERED: 360.33mGy.cm Total DLP DATA REPOSITORY: All CT scans at this facility are submitted to the National Radiology Data Registry (NRDR) Dose Index Registry (DIR) with the [employer] (ACR). RADIATION OPTIMIZATION: All CT scans at this facility use at least one of these dose optimization te chniques: automated exposure control; mA and/or kV adjustment per patient size (includes targeted exa ms where dose is matched to clinical indication); or iterative reconstruction.
[2020-08-14] MEDS: Normal Saline - Diluent 50 ML VIAL IV (13:26)
[2020-08-14] MEDS: Omnipaque 350 MG/ML 100 ML BTL 70 ML IJ (13:28)
== END 2020-08-14 05:09 ==
PROVIDERS: PCP Family Medicine; Visit Provider Family Medicine
DX: R91.8 Other nonspecific abnormal finding of lung field (principal)
CPT/HCPCS: 71260; 82565; J3490

== ENCOUNTER → 2020-08-20 13:27 | Outpatient (BNVA) | payer OTHER, SELFPAY | PROVIDERS: PCP Family Medicine; Referring Provider Family Medicine; Visit Provider Physical Therapy Assistant | DX: R13.19 Other dysphagia (principal); J44.9 Chronic obstructive pulmonary disease, unspecified; F17.210 Nicotine dependence, cigarettes, uncomplicated; I25.10 Atherosclerotic heart disease of native coronary artery without angina pectoris | CPT/HCPCS: 99213 ==

== ENCOUNTER 2020-09-04 02:07 | Outpatient (CLI) | payer OTHER, SELFPAY ==
[2020-09-06 11:20] LABS: SARS-CoV-2 RNA Not Detected (NotDetected); SARS-CoV-2 RNA Source Nasal/Nares
== END 2020-09-04 02:27 ==
PROVIDERS: PCP Family Medicine; Visit Provider Surgery
DX: Z01.818 Encounter for other preprocedural examination (principal)
CPT/HCPCS: U0003

== ENCOUNTER 2020-09-08 09:25 | Day surgery (SDC) | payer OTHER, SELFPAY ==
[2020-09-08 09:30] VITALS: BP 129/69; PULSE 58; RESP 21; TEMP 36.5; O2SAT 92
[2020-09-08] MEDS: Lactated Ringers 1,000 ML 80 ML IV (10:15)
--- NOTE | 2020-09-08 10:22 | W.PM.DSUDISC ---
Discharge Plan Disposition Patient Disposition: HOME Condition: Good Discharge Details Reason For Visit: EGD with balloon dilation Attending Provider: Nina Marti Primary Care Provider: Leann Messina V Home Meds and New Rx's Prescriptions: Continued metoprolol succinate 50 mg tablet extended release 24 hr 25 mg PO DAILY RF: 0 lisinopril 10 mg tablet 10 mg PO DAILY RF: 0 Myrbetriq 25 mg tablet extended release 24 hr 25 mg PO DAILY RF: 0 hydrocodone-acetaminophen 5-325 mg tablet 1 tab PO BID PRNRF: 0 amlodipine [Norvasc] 10 mg tablet 10 mg PO DAILY RF: 0 nicotine (polacrilex) [Nicorette] 4 mg gum 4 mg BC Q2H RF: 0 nicotine 14 mg/24 hr patch 24 hour 1 patch TD DAILY RF: 0 (DME) Oxygen Tank See Rx Instructions .ROUTE .MEDSUPPLY Qty: 1 RF: 0 furosemide [Lasix] 20 MG tablet 20 mg PO DAILY RF: 0 aspirin [Adult Low Dose Aspirin] 81 mg tablet,delayed release (DR/EC) 81 mg PO DAILY RF: 0 pantoprazole 40 mg tablet,delayed release (DR/EC) 40 mg PO DAILY RF: 0 sertraline 100 MG tablet 150 mg PO DAILY RF: 0 (DME) nebulizers misc See Dose Instructions .ROUTE .MEDSUPPLY Qty: 1 RF: 0 ketoconazole 2 % Shampoo 1 applic TOPICAL PRN PRNRF: 0 albuterol sulfate [ProAir HFA] 90 mcg/actuation Hfa Aerosol Inhaler 2 puff INHALATION Q6H PRNRF: 0 budesonide-formoterol [Symbicort] 160-4.5 mcg/actuation Hfa Aerosol Inhaler 2 puff INHALATION BID RF: 0 Incruse Ellipta 62.5 mcg/actuation Blister With Device 1 inh INHALATION DAILY RF: 0 cholecalciferol (vitamin D3) 2,000 unit Tablet,Chewable 2,000 unit PO DAILY RF: 0 ipratropium-albuterol 0.5 mg-3 mg(2.5 mg base)/3 mL solution for nebulization 3 ml UPD Q6H PRNRF: 0 isosorbide mononitrate 30 MG tablet extended release 24 hr 60 mg PO DAILY RF: 0 atorvastatin [Lipitor] 40 MG tablet 40 mg PO HS RF: 0 nitroglycerin [Nitrostat] 0.4 MG tablet, sublingual 0.4 mg Sublingual PRN PRNRF: 0 gabapentin 300 MG capsule 900 mg PO HS Qty: 90 RF: 0 morphine 15 MG tablet 15 mg PO TID PRN (Reason: Chest Pain) Qty: 42 RF: 0 Discharge Instructions Additional Instructions: Findings: The esophagus showed a benign (non cancerous) narrowing. This was dilated with a balloon. The stomach showed mild inflammation. Continue your antacid. Routine biopsies were done. Follow up: No follow up is needed unless the difficulty swallowing does not improve. Please call if you develop: fevers >101.5 Nausea or Vomiting Abdominal/chest pain that is not transient DAY SURGERY UNIT POST EGD INSTRUCTIONS 1. Because there will be medication in your system for the next 24 hours, you may feel a little sleepy. Your coordination will be affected. Therefore: a. Do not drive or operate dangerous equipment for 24 hours. b. Do not drink alcohol beverages for 24 hours (not even beer). c. Plan to go home and rest for the day. 2. Generally there are no restrictions on your activity after a day or so has gone by, but you may feel a bit fatigued for a few days. 3 After you arrive home you may have a light meal and return to a normal diet as you can tolerate it without feeling sick to your stomach. 4. After surgery, you may feel pain or discomfort. This should be only transient, but if it persists please contact your doctor. 5. If there are any questions regarding the findings of your procedure, please feel free to contact your doctor. 6. If you are unable to contact your doctor with a problem, contact the hospital at [phone]. 7. Continue all your regular medications unless directed otherwise. I understand the above instructions and have no questions. Signature of Patient or Responsible Adult Escort Date/Time Name of Responsible Adult Escort Signature of Nurse Date/Time Activity:: Activity as Tolerated Diet:: As Tolerated Discharge Orders Discharge Orders: Discharge Order (Routine); Ordered 09/08/20 Ordered By: Nina Marti DS: Diagnosis Discharge Diagnosis (1) Benign esophageal stricture: Status: Acute (2) Hiatal hernia: Status: Chronic (3) Mild chronic gastritis: Status: Acute
--- NOTE | 2020-09-08 10:24 | W.PM.ENDDOP ---
Date of service: 09/08/20 Time of Service: 11:29 Endoscopy Report DATE OF PROCEDURE: 09/08/20 PRE-OP DIAGNOSIS: Dysphagia POST-OP DIAGNOSIS: other (Benign distal esophageal stricture, small hiatal hernia, mild gastritis) PROCEDURE: EGD with duodenal and gastric biopsies, balloon dilation of esophagus SURGEON: Nina Marti ANESTHESIA: MAC INDICATIONS: This 79 year old woman presents for EGD. She notes dysphagia for solids. PROCEDURE DESCRIPTION: The patient was placed in the left lateral position and propofol titrated to sedation. The endoscope was advanced into the esophagus under direct visualization. The scope was passed through the stomach and into the duodenum. There was no duodenitis or ulceration noted. Biopsies were taken from the second portion of the duodenum to evaluate for celiac disease. The stomach itself was normal including on retroflexed view of the fundus and lesser curvature with the exception of some minimal antral gastritis. Routine biopsies were taken from the gastric antrum. The GE junction was inspected and showed a benign stricture. There was no inflammation, masses or Barretts. A small hiatal hernia was present. The balloon dilator was inserted and gradually inflated within the stricture under direct visualization to 20mm. This was held in place for a minute. Inspection of the stricture showed no significant trauma. The scope was slowly withdrawn with no other esophageal lesions found. The patient tolerated the procedure well and was stable to recovery.
--- NOTE | 2020-09-08 10:52 | STOM_PTH ---
PATIENT: Audrey Weber LOC: [facility] U#:[id number] AGE/SX: 79/F ROOM: RE09/08/[address]: Nina Marti MD : 1940 BED: DIS: 09/08/2020 SPEC #: [id number] RECD: 09/08/20 12:11 STATUS: YAN RE #: [id number] YOUNG: 09/08/20 10:[address]: Nina Marti DEPT: Surgical Specimen RECD BY: Marlen Shah ENTERED: 09/08/20 12:11 SP TYPE: STOMACH OTHR DR: Leann Messina V Tissues: 1 - BIOPSY BOWEL 2 - STOMACH BIOPSY Procedures: GROSS AND MICRO LEVEL 4 Comments: [id number] ([id number] [facility] [place]#)
[2020-09-08 11:45] VITALS: BP 117/58; PULSE 54; RESP 18; TEMP 36.2; O2SAT 91
== END 2020-09-08 12:02 | disposition home or self-care (01) ==
PROVIDERS: PCP Family Medicine; Visit Provider Surgery
PROC: 0DJ68ZZ Inspection of Stomach, Via Natural or Artificial Opening Endoscopic (ICD-10-PCS; CPT 43235; principal; 2020-09-08 11:00)
DX: R13.10 Dysphagia, unspecified (principal); K22.2 Esophageal obstruction; K44.9 Diaphragmatic hernia without obstruction or gangrene; K29.50 Unspecified chronic gastritis without bleeding; K31.89 Other diseases of stomach and duodenum; J43.9 Emphysema, unspecified
CPT/HCPCS: 43249; 43239; 88305; J2704

== ENCOUNTER 2020-11-23 18:38 | Outpatient (REF) | payer OTHER, SELFPAY ==
[2020-11-27 13:08] LABS: Codeine Negative ng/mL (Cutoff: 25); Dihydrocodeine Negative ng/mL (Cutoff: 25); Hydrocodone Negative ng/mL (Cutoff: 25); Hydromorphone Negative ng/mL (Cutoff: 25); Morphine 309 ng/mL (Cutoff: 25); Naloxone Negative ng/mL (Cutoff: 25); Norhydrocodone Negative ng/mL (Cutoff: 25); Noroxycodone Negative ng/mL (Cutoff: 25); Noroxymorphone Negative ng/mL (Cutoff: 25)
[2020-12-03 16:12] LABS: Lorazepam Negative ng/mL (Cutoff: 10); Temazepam Negative ng/mL (Cutoff: 10)
[2020-12-03 16:16] LABS: Alpha OH-Alprazolam Negative ng/mL (Cutoff: 10)
[2020-12-03 16:17] LABS: 7-NH-Clonazepam Negative ng/mL (Cutoff: 10)
[2020-12-03 16:18] LABS: 7-NH-Flunitrazepam Negative ng/mL (Cutoff: 10)
[2020-12-03 16:20] LABS: 2-OH-Ethyl-Flurazepam Negative ng/mL (Cutoff: 10)
[2020-12-03 16:27] LABS: Alpha-OH-Triazolam Negative ng/mL (Cutoff: 10); Benzodiazepines Interpretation Negative
== END 2020-11-23 18:58 ==
LOC: NCHCN 18:38
PROVIDERS: PCP Family Medicine; Visit Provider Family Medicine
DX: R07.89 Other chest pain (principal); Z79.899 Other long term (current) drug therapy
CPT/HCPCS: 80361; 80362; 80346

== ENCOUNTER 2021-01-19 13:45 | Outpatient (REF) | payer OTHER, SELFPAY ==
[2021-01-19 19:21] LABS: HCT 38.7 % (36.0-46.0); HGB 12.5 g/dL (11.2-15.7)
[2021-01-19 19:57] LABS: ALT 20 U/L (14-59); AST 24 U/L (15-37); Albumin 3.6 g/dL (3.4-5.0); Alkaline Phosphatase 101 U/L (46-116); Anion Gap 5.5 mmol/L (3-11); BUN 14 mg/dL (7-18); Bilirubin, Total 0.6 mg/dL (0.2-1.0); CO2 37.5 mmol/L (21.0-32.0); CREATININE 0.8 mg/dL (0.55-1.02); Calcium 8.8 mg/dL (8.5-10.1); Calculated LDL 53 mg/dL (<100); Chloride 103 mmol/L (98-107); Cholesterol 131 mg/dL (<200); Glucose 83 mg/dL (74-106); HDL Cholesterol 61 mg/dL (40-60); Potassium 4.3 mmol/L (3.5-5.1); Sodium 146 mmol/L (136-145); Total Protein 7.2 g/dL (6.4-8.2); Triglyceride 89 mg/dL (<150)
== END 2021-01-19 13:46 | disposition home or self-care (01) ==
LOC: NCHCN 13:45
PROVIDERS: PCP Family Medicine; Visit Provider Family Medicine
DX: R73.03 Prediabetes (principal); I25.10 Atherosclerotic heart disease of native coronary artery without angina pectoris; M54.16 Radiculopathy, lumbar region
CPT/HCPCS: 80053; 80061; 83036; 85014; 85018

== ENCOUNTER → 2021-02-09 11:11 | Outpatient (BNVA) | payer OTHER, MEDICARE, SELFPAY | PROVIDERS: PCP Family Medicine; Visit Provider Internal Medicine Cardiovascular Disease | DX: I25.10 Atherosclerotic heart disease of native coronary artery without angina pectoris (principal); Z98.61 Coronary angioplasty status; F17.210 Nicotine dependence, cigarettes, uncomplicated | CPT/HCPCS: 99213 ==

== ENCOUNTER → 2021-03-18 09:38 | Outpatient (BNVA) | payer OTHER, MEDICARE, SELFPAY | PROVIDERS: PCP Family Medicine; Referring Provider Family Medicine; Visit Provider Nurse Practitioner Gerontology | DX: N28.89 Other specified disorders of kidney and ureter (principal); N32.81 Overactive bladder; R31.29 Other microscopic hematuria; Z85.528 Personal history of other malignant neoplasm of kidney; K59.00 Constipation, unspecified | CPT/HCPCS: 81003; 99214 ==

== ENCOUNTER 2021-04-05 00:59 | Outpatient (CLI) | payer OTHER, SELFPAY ==
--- NOTE | 2021-04-05 06:45 | DI.US_ITS ---
Exam(s) US RENAL EXAM: US RENAL CLINICAL HISTORY: monitoring renal mass/cyst and kidney stone,n28.89. TECHNIQUE: Moody scale, color and spectral Doppler were used. COMPARISON: CT CT THORAX ABD/PEL CTA from 02/18/2020 FINDINGS: Renal size in cm: Right: 9.5. Left: 9.9. Echogenicity: Normal. Hydronephrosis: No. Cyst or mass: There are several bilateral simple cysts. They have a similar appearance compared to t he CT scan from 02/14/2020. No further follow-up is recommended. Nephrolithiasis: There are echogenic foci seen within the midpole of the left kidney suspicious for n onobstructing stones versus vascular calcifications. Other findings: None. Bladder:No bladder wall thickening. Ureteral jets: Right: Not visualized on this examination. Left: Not visualized on this examination. Prevoid vol:130 cc Postvoid vol:5 cc Renal color flow: Symmetric and within normal limits. IMPRESSION: 1. Stable bilateral renal cysts. No further follow-up is recommended. 2. Echogenic foci in the left kidney which may represent nonobstructing stones or vascular calcificat ions. DATA REPOSITORY:
== END 2021-04-05 01:19 ==
PROVIDERS: PCP Family Medicine; Visit Provider Nurse Practitioner Gerontology
DX: N28.1 Cyst of kidney, acquired (principal); N28.89 Other specified disorders of kidney and ureter
CPT/HCPCS: 76770

== ENCOUNTER 2021-04-05 01:00 | Outpatient (CLI) | payer OTHER, SELFPAY ==
--- NOTE | 2021-04-05 | DI.US_ITS ---
Exam(s) US CAROTID EXAM: US CAROTID CLINICAL HISTORY: DIZZINESS,R42, ? CAD, SMOKER. TECHNIQUE: Ultrasound carotids performed using grayscale, color-flow, and spectral Doppler imaging. COMPARISON: No exams were available for comparison FINDINGS: RIGHT CAROTID ARTERY: Plaque: Moderate calcific plaque predominantly involving the carotid bulb but also seen in the distal common carotid and the proximal ECA and ICA. Velocity elevation: None. LEFT CAROTID ARTERY: Plaque: Moderate calcific plaque predominantly involving the carotid bulb but also present in the dis donte common carotid in the proximal ECA and ICA. Velocity elevation: None. VERTEBRAL ARTERIES: Antegrade flow. Measurements: R Bulb: 64.3cm/s PS / 25.1cm/s ED R CCA: 60.4cm/s PS / 23.1cm/s ED R ECA: 93.2cm/s PS / 9cm/s ED R ICA Prox: 61.1cm/s PS /25.7cm/s ED R ICA Mid: 62.3cm/s PS / 30.2cm/s ED R ICA Distal: 62.3cm/s PS /22.5cm/s ED R Vert: 28.9cm/s PS / 15.4cm/s ED R SVR: 1.03 R DVR: 1.31 L Bulb: 50.1cm/s PS /19.3cm/s ED L CCA: 39.2cm/s PS / 13.5cm/s ED L ECA: 89.3cm/s PS /14.1cm/s ED L ICA Prox:54cm/s PS / 17.4cm/s ED L ICA Mid: 64.9cm/sPS / 25.7cm/s ED L ICA Distal: 55.9cm/s PS / 25.1cm/s ED L Vert: 43.7cm/s PS / 20.6cm/s ED L SVR: 1.66 L DVR: 1.9 IMPRESSION: No evidence for hemodynamically significant carotid stenosis. Criteria for Carotid Stenosis: Normal: ICA PSV <125 cm/s no plaque or intimal thickening is visible. <50% stenosis: ICA PSV <125 cm/s and plaque or intimal thickening is visible. 50-69% stenosis: ICA PSV is 125-250 cm/s and plaque is visible. >70% stenosis to near occlusion: ICA PSV >250 cm/s with visible plaque and luminal narrowing. DATA REPOSITORY:
== END 2021-04-05 01:20 ==
PROVIDERS: PCP Family Medicine; Visit Provider Family Medicine
DX: R42 Dizziness and giddiness (principal); F17.210 Nicotine dependence, cigarettes, uncomplicated
CPT/HCPCS: 93880

== ENCOUNTER 2021-06-13 14:56 | Emergency (ER) | payer OTHER, SELFPAY ==
[2021-06-13] VITALS (36 sets, daily range): BP systolic 93–132; BP diastolic 39–63; PULSE 48–65; RESP 14–27; TEMP 36.4–36.9; O2SAT 22–94
--- NOTE | 2021-06-13 15:00 | RT.EKG_ITS ---
APPROVED REPORT Exam: Resting ECG Reason for Exam: weakness Patient Location: E HR:59 bpm ECG Measurements Heart Rate 59 AXIS ME 195 P 45 QRSd 93 QRS 55 QT 448 T 37 QTc 434 Conclusion Sinus bradycardia...rate< 60 Atrial premature complexes in couplets...pair SV complexes w/ short R-R
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
[2021-06-13 16:18] LABS: Abs Immature Grans 0.01 10^3/uL (0.0-0.06); Absolute Basophil Count 0.04 10^3/uL (0.0-0.2); Absolute Eosinophil Count 0.19 10^3/uL (0.0-0.7); Absolute Lymphocyte Count 1.48 10^3/uL (1.2-3.4); Absolute Neutrophil Count 4.95 10^3/uL (1.2-6.7); Basophils % 0.6; Eosinophils % 2.6; HCT 38.5 % (36.0-46.0); HGB 11.9 g/dL (11.2-15.7); Immature Grans % 0.1; Lymphocytes % 20.4; MCH 29.8 pg (27.0-33.0); MCHC 30.9 % (32.0-36.0); MCV 96.3 fL (80-95); MPV 10.2 fL (8.0-11.0); Monocytes % 8.3; Nucleated RBC 0 %; Platelet Count 234 10^3/uL (130-400); RDW 13.5 % (11.7-14.6); RDW-SD 48.4 fL; WBC 7.27 10^3/uL (4.4-10.8)
[2021-06-13 16:30] LABS: Source Nasal/Nares
[2021-06-13 16:37] LABS: ALT 14 U/L (14-59); AST 22 U/L (15-37); Albumin 3.5 g/dL (3.4-5.0); Alkaline Phosphatase 87 U/L (46-116); Anion Gap 0.9 mmol/L (3-11); BUN 13 mg/dL (7-18); Bilirubin, Total 0.6 mg/dL (0.2-1.0); CO2 39.1 mmol/L (21.0-32.0); CREATININE 0.9 mg/dL (0.55-1.02); Calcium 8.6 mg/dL (8.5-10.1); Chloride 102 mmol/L (98-107); Glucose 97 mg/dL (74-106); Magnesium 1.7 mg/dL (1.8-2.4); Potassium 4.2 mmol/L (3.5-5.1); Sodium 142 mmol/L (136-145); Total Protein 6.8 g/dL (6.4-8.2)
[2021-06-13 16:38] LABS: Troponin I < 0.05 ng/mL (<0.06)
[2021-06-13 16:45] LABS: TSH (W/Ref FT4) 1.17 uIU/mL (0.36-3.74)
[2021-06-13 16:53] LABS: Bilirubin Negative (Negative); Blood Negative (Negative); Clarity Clear (Clear); Glucose Negative (Negative); Ketones Negative (Negative); Leukocyte Esterase Negative (Negative); Nitrite Negative (Negative); Specific Gravity 1.025 (1.005-1.025)
[2021-06-13 17:03] LABS: Bacteria Few HPF (Negative); C & S Indicated? No/Sq. Contamination; Casts Negative LPF (Negative); Crystals Negative HPF (Negative); Epithelial Cells Moderate HPF (Negative); Mucus Negative (Negative); RBC 0-2 HPF (0-2)
[2021-06-13 17:23] LABS: COVID-19 PCR Negative (Negative)
[2021-06-13] MEDS: Omnipaque 350 MG/ML 100 ML BTL IJ (17:34)
[2021-06-13] MEDS: Normal Saline - Diluent 50 ML VIAL IV (17:36)
--- NOTE | 2021-06-13 17:54 | DI.RAD_ITS ---
Exam(s) XR CHEST 2V PA LATERAL EXAM: XR CHEST 2V PA LATERAL CLINICAL HISTORY: cough, shortness of breath. TECHNIQUE: 2D digital imaging was performed. COMPARISON: CR XR CHEST 2V PA LATERAL from 09/12/2018 FINDINGS: Cardiomegaly. The mediastinum is not widened. No infiltrates nor pleural effusions. No pulmonary edema. No pneumothorax IMPRESSION: No acute pulmonary findings.Mild cardiomegaly. No pulmonary edema. DATA REPOSITORY: RADIATION DOSE DELIVERED:
--- NOTE | 2021-06-13 17:59 | DI.CT_ITS ---
Exam(s) CT BRAIN NECK CTA EXAM: CT BRAIN NECK CTA CLINICAL HISTORY: dizziness, double vision. TECHNIQUE: Imaging Protocol: Axial CT angiography was performed with multi-slice acquisition and mu lti-planar and/or 3D reconstructions. CONTRAST MATERIAL: Intravenous: Omnipaque 350 Contrast volume:structured data in ml COMPARISON: CT CT THORAX ABD/PEL CTA from 02/18/2020 FINDINGS: CTA Neck W: Aortic arch anatomy: The aortic arch anatomy is conventional. Anterior circulation: Both common carotid arteries ascend with normal luminal diameters. There is mild calcified plaque at the level of both carotid bulbs and proximal internal carotid arteries but no significant stenosis e vident at these levels nor in these vessels above this level in the neck and both internal carotid ar teries are demonstrated to be patent within the skull base-carotid canals Posterior circulation: Both vertebral arteries originated conventional fashion off of the subclavian arteries and there is n o evidence of significant stenosis in the subclavian arteries proximal to the vertebral artery takeof f points. Both vertebral arteries ascend with equal luminal diameters within the foramen transversar ium and with no evidence of intraluminal thrombus nor vertebral artery dissection. At the skull base both vertebral arteries contribute equally to the formation of the basilar artery. CTA Brain W: Anterior circulation: Both internal carotid arteries are patent in the skull base-carotid canals as well as within the cave rnous sinuses. Supraclinoid aspects of these vessels are patent. Both middle cerebral arteries are patent out to the sylvian fissure branches and without evidence of intraluminal thrombus nor aneurysm s of these vessels. Both a 1 segments are patent. Anterior cerebral arteries are patent. There is no evidence of aneurysm at the level of the anterior communicating artery. Posterior circulation: The basilar artery is formed at the skull base by both vertebral arteries. Basilar artery ascends in the midline with normal luminal diameter. It gives off patent bilateral superior cerebellar arterie s and above this level terminates as patent bilateral posterior cerebral arteries. There is no evide nce of aneurysm tip of the basilar artery nor elsewhere in the [id number]. There are no promin ent posterior communicating arteries in the [id number]. CT BRAIN: There is no evidence of intracranial hemorrhage, mass effect, or shift of midline structures. There are no extra-axial fluid collections. Ventricles are not enlarged or shifted and there is no blood w ithin the ventricular system nor within the basal cisterns. There are no ring enhancing lesions in t he brain and no abnormal meningeal enhancement. Visualized paranasal sinuses are clear. IMPRESSION: 1. No acute intracranial findings. No ring enhancing lesions in the brain nor abnormal meningeal enh ancement. 2. Brain CTA is within normal limits. No significant vascular occlusion. Also no evidence of aneur ysms. No evidence of obvious vascular malformation. 3. No evidence of significant stenosis in the carotid arteries in the neck. Both vertebral arterie s are also patent with no evidence of skip significant stenosis, intraluminal thrombus, nor evidence of vertebral artery dissection. RADIATION DOSE DELIVERED: 1,926.26mGy.cm Total DLP DATA REPOSITORY: All CT scans at this facility are submitted to the National Radiology Data Registry (NRDR) Dose Index Registry (DIR) with the [employer] (ACR). RADIATION OPTIMIZATION: All CT scans at this facility use at least one of these dose optimization te chniques: automated exposure control; mA and/or kV adjustment per patient size (includes targeted exa ms where dose is matched to clinical indication); or iterative reconstruction.
--- NOTE | 2021-06-13 18:55 | DI.VRAD_ITS ---
PROCEDURE INFORMATION: Exam: CT Angiography Head With Contrast, Venography Exam date and time: 06/13/2021 3:47 PM Age: 80 years old Clinical indication: Dizziness and giddiness, double vision TECHNIQUE: Imaging protocol: Computed tomography angiography of the head with contrast. Exam focused on the veins. 3D rendering (Not supervised by radiologist): MIP and/or 3D reconstructed images were created by the technologist. Radiation optimization: All CT scans at this facility use at least one of these dose optimization techniques: automated exposure control; mA and/or kV adjustment per patient size (includes targeted exams where dose is matched to clinical indication); or iterative reconstruction. Contrast material: OMNI-PAQUE 350; Contrast volume: 85 ml; Contrast route: INTRAVENOUS (IV); COMPARISON: CT HEAD WO 12/10/2019 5:47 PM FINDINGS: Cavernous Sinus: No thrombosis. Veins: No thrombosis. Brain: No acute intracranial hemorrhage on initial unenhanced images. Mild diffuse cerebral atrophy. No mass effect or midline shift. No extra-axial fluid collection. Cerebral ventricles: Ventricular prominence in this patient with mild diffuse cerebral atrophy. Mastoid air cells: No mastoiditis. Soft tissues: Unremarkable. Paranasal sinuses: No significant disease of the paranasal sinuses. IMPRESSION: 1. No acute intracranial findings on initial unenhanced images. 2. CTA head within normal limits. No large vessel occlusion. No aneurysm. PROCEDURE INFORMATION: Exam: CT Angiography Neck With Contrast Exam date and time: 06/13/2021 3:47 PM Age: 80 years old Clinical indication: Dizziness and giddiness, double vision TECHNIQUE: Imaging protocol: Computed tomography angiography of the neck with contrast. 3D rendering (Not supervised by radiologist): MIP and/or 3D reconstructed images were created by the technologist. Radiation optimization: All CT scans at this facility use at least one of these dose optimization techniques: automated exposure control; mA and/or kV adjustment per patient size (includes targeted exams where dose is matched to clinical indication); or iterative reconstruction. Contrast material: OMNI-PAQUE 350; Contrast volume: 85 ml; Contrast route: INTRAVENOUS (IV); COMPARISON: CT HEAD WO 12/10/2019 5:47 PM FINDINGS: Right common carotid artery: No stenosis. No dissection or occlusion. Right internal carotid artery: Small amount of calcific plaque in the origin and proximal portion of the right internal carotid artery without significant stenosis or occlusion. Right external carotid artery: No occlusion or stenosis of the origin. Left common carotid artery: No stenosis. No dissection or occlusion. Left internal carotid artery: Small amount of calcific plaque in the origin and proximal portion of the left internal carotid artery without significant stenosis or occlusion. Left external carotid artery: No occlusion or stenosis of the origin. Right vertebral artery: No stenosis. No dissection or occlusion. Left vertebral artery: No stenosis. No dissection or occlusion. Soft tissues: Normal. No significant soft tissue swelling. Bones/joints: Cervical spine degenerative changes. IMPRESSION: No arterial dissection, arterial occlusion, or significant arterial stenosis. REFERENCES: NASCET CRITERIA. The degree of internal carotid artery stenosis is based on NASCET criteria. Normal is no stenosis. Mild is less than 50% stenosis. Moderate is 50-69% stenosis. Severe is 70% to 99% stenosis. Total occlusion is no detectable patent lumen. Dictated and Authenticated by: Lance Olmedo MD. Ordering:RENETTA Gee MD
--- NOTE | 2021-06-13 19:01 | DI.VRAD_ITS ---
PROCEDURE INFORMATION: Exam: XR Chest Exam date and time: 06/13/2021 5:33 PM Age: 80 years old Clinical indication: Cough and shortness of breath TECHNIQUE: Imaging protocol: XR of the chest. Views: 2 views. COMPARISON: CT CHEST W 08/14/2020 1:12 PM FINDINGS: Lungs: No alveolar infiltrate. Pleural spaces: No pleural fluid collection. No pneumothorax. Heart/Mediastinum: Heart size within normal limits. Vasculature: Calcific thoracic aorta. Bones/joints: Unremarkable for patient age. IMPRESSION: No active pulmonary disease. Dictated and Authenticated by: Lance Olmedo MD. Ordering:RENETTA Gee MD
--- NOTE | 2021-06-13 20:02 | NUR.NOTE ---
Referral faxed to [facility] for a f/u azeem, 06/14/21 if at all possible, tia vs cva.Nursing Note:
[2021-06-13 20:25] LABS: Troponin I < 0.05 ng/mL (<0.06)
== END 2021-06-13 20:17 | disposition home or self-care (01) ==
PROVIDERS: Emergency Provider Physician Assistant; PCP Family Medicine
DX: R42 Dizziness and giddiness (principal); H53.2 Diplopia; Z20.822 Contact with and (suspected) exposure to COVID-19; R06.02 Shortness of breath
CPT/HCPCS: 36415; 70496; 70498; 80053; 87635; 93005; 99285; 71046; 81003; 81015; 83735; 84443; 84484; 85025; 93010; 99284; J3490

== ENCOUNTER 2021-06-21 00:18 | Outpatient (CLI) | payer OTHER, SELFPAY ==
--- NOTE | 2021-06-21 10:00 | DI.MRI_ITS ---
Exam(s) MR BRAIN WO EXAM: MR BRAIN WO CLINICAL HISTORY: DIZZINESS, R42, ? STROKE, SEEN IN ER FOR VISUAL DISTURBANCE, UNSTEADY GAIT, TECHNIQUE: Multiplanar multisequence MRI of the brain was performed. COMPARISON: CT CT BRAIN NECK CTA from 06/13/[address] BRAIN NECK CTA from 06/13/2021 FINDINGS: CEREBRAL PARENCHYMA: There is no evidence of intracranial hemorrhage, mass effect, or shift of midline structures. There are no extra-axial fluid collections. Ventricles are not enlarged or shifted. There is no significant signal abnormality in the cerebellar hemispheres. There is no evidence of ce rebellar tonsillar ectopia. There is signal abnormality in both sides of the heena; none in the midbr ain, none in the thalami. However, there are multiple foci of signal pleural abnormality in the Bre and supraventricular white matter, these being nonhemorrhagic and not associated with surrounding edema nor abnormal signal on diffusion imaging. PITUITARY GLAND: No mass nor parasellar abnormality. No obvious abnormality in the cavernous sinuses. FLOW VOIDS: The expected flow void are noted. No evidence of obvious aneurysm nor obvious vascular ma lformation. PARANASAL SINUSES: The visualized paranasal sinuses appear unremarkable. No obvious finding ORBITS: No obvious findings. IMPRESSION: Chronic ischemic-type periventricular white matter changes as well as similar findings in the heena. However, these do not exhibit abnormal signal on diffusion imaging and are therefore probably chronic . No evidence of acute intracranial ischemic event. No hemorrhage. DATA REPOSITORY:
== END 2021-06-21 00:38 ==
PROVIDERS: PCP Family Medicine; Visit Provider Nurse Practitioner Family
DX: R42 Dizziness and giddiness (principal); H53.9 Unspecified visual disturbance; R26.81 Unsteadiness on feet; R90.82 White matter disease, unspecified
CPT/HCPCS: 70551

== ENCOUNTER 2021-08-25 02:09 | Outpatient (CLI) | payer MEDICARE, SELFPAY ==
--- NOTE | 2021-08-25 | DI.CT_ITS ---
Exam(s) CT CHEST WO EXAM: CT CHEST WO CLINICAL HISTORY: SCREENING FOR LUNG CA, CURRENT SMOKER, F17.210. TECHNIQUE: Multi planar reconstructions were performed. CONTRAST MATERIAL: None COMPARISON: CT CT CHEST W from 08/14/2020 FINDINGS: CHEST: LUNGS: In the right upper lobe there is a subtle peripherally located 4 millimeter nodule which appea rs more peripheral than on the previous study, more so than can be accounted by 4 differences in resp iratory effort. The other nodule is not seen on today's study but there is a 2 millimeters subpleura l nodule peripherally in the right upper lobe evident today's study. Lower down in the right lung th ere is a small 2 millimeter calcified granuloma evident, not previously present.. There is also a 5 millimeter nodule in the lateral segment of the right middle lobe which appears slightly larger than previous. In inferior aspect of the right middle lobe and anterior basal segment of the right lower lobe there is some increasing infiltrate, inflammatory in appearance. No associated pleural effusion. In the opposite-left lung there is a 3 millimeter peripheral nodule in the apical posterior segment o f the left upper lobe, unchanged. There is small nodule in the anterior segment of the left upper lo be which presently measures 4 millimeters, slightly larger than previous. Some unchanged pleural thi ckening is seen posteriorly over the left lower lobe. There is no left pleural effusion. Increased markings in the posterior basal segment of the left lower lobe have slightly increased. MEDIASTINUM: There is no obvious hilar nor mediastinal adenopathy. no obvious axillary adenopathy CARDIAC: Heart size remains normal. Coronary artery calcification again noted. Mild thickening of t he anterior pericardium noted. Thediameter of the thoracic aorta is again noted be prominent. VISUALIZED UPPER ABDOMEN: OSSEOUS: No significant osseous lesions.No compression fractures. Multilevel chronic advanced degene rative disc disease noted lower thoracic spine. IMPRESSION: 1. Small bilateral pulmonary nodules again noted. One of these appears of slightly increased in size , approximately 1 millimeter. Other lung findings as above. 2. Recommend follow-up CT scan in 6 months 3. Lung rads category 3-six-month follow-up LDCT RADIATION DOSE DELIVERED: 77.44mGy.cm Total DLP DATA REPOSITORY: All CT scans at this facility are submitted to the National Radiology Data Registry (NRDR) Dose Index Registry (DIR) with the [employer] (ACR). RADIATION OPTIMIZATION: All CT scans at this facility use at least one of these dose optimization te chniques: automated exposure control; mA and/or kV adjustment per patient size (includes targeted exa ms where dose is matched to clinical indication); or iterative reconstruction.
== END 2021-08-25 02:29 ==
PROVIDERS: PCP Family Medicine; Visit Provider Nurse Practitioner Family
DX: Z12.2 Encounter for screening for malignant neoplasm of respiratory organs (principal); F17.210 Nicotine dependence, cigarettes, uncomplicated; R91.8 Other nonspecific abnormal finding of lung field
CPT/HCPCS: 71250

== ENCOUNTER 2021-09-23 15:34 | Emergency (ER) | payer MEDICARE, SELFPAY ==
--- NOTE | 2021-09-23 15:30 | RT.EKG_ITS ---
APPROVED REPORT Exam: Resting ECG Reason for Exam: weakness Patient Location: E HR:60 bpm ECG Measurements Heart Rate 60 AXIS NV 200 P 35 QRSd 93 QRS 59 QT 445 T 60 QTc 446 Conclusion Sinus rhythm...normal P axis, V-rate 60- 99. Sinus. No STEMI. I have reviewed and interpreted ECG and agree with software generated interpretation.
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
[2021-09-23 15:41] VITALS: BP 139/81; PULSE 56; RESP 20; TEMP 36.1; O2SAT 95
--- NOTE | 2021-09-23 16:00 | DI.RAD_ITS ---
Exam(s) XR CHEST 2V PA LATERAL EXAM: XR CHEST 2V PA LATERAL CLINICAL HISTORY: cough, sob, r/o acute disease TECHNIQUE: 2D digital imaging was performed. COMPARISON: CT CT CHEST WO from 08/25/2021 FINDINGS: MEDIASTINUM: Normal. HEART: Normal. Tortuous aorta. PULMONARY VASCULATURE: Normal. LUNGS: Mild fibrotic changes, otherwise clear. PLEURAL SPACE: No pleural effusion or pneumothorax. BONE:Unremarkable for age. IMPRESSION: No acute abnormality. DATA REPOSITORY: RADIATION DOSE DELIVERED:
[2021-09-23 16:31] LABS: Abs Immature Grans 0.01 10^3/uL (0.0-0.06); Absolute Basophil Count 0.04 10^3/uL (0.0-0.2); Absolute Eosinophil Count 0.34 10^3/uL (0.0-0.7); Absolute Lymphocyte Count 2.12 10^3/uL (1.2-3.4); Absolute Monocyte Count 0.61 10^3/uL (0.1-0.8); Absolute Neutrophil Count 3.89 10^3/uL (1.2-6.7); Basophils % 0.6; Eosinophils % 4.9; HCT 36.5 % (36.0-46.0); HGB 11.1 g/dL (11.2-15.7); Immature Grans % 0.1; Lymphocytes % 30.2; MCH 29.8 pg (27.0-33.0); MCHC 30.4 % (32.0-36.0); MCV 98.1 fL (80-95); MPV 10.3 fL (8.0-11.0); Monocytes % 8.7; Neutrophils % 55.5; Nucleated RBC 0 %; Platelet Count 200 10^3/uL (130-400); RBC 3.72 10^6/uL (3.93-5.22); RDW 14.4 % (11.7-14.6); RDW-SD 52.4 fL; WBC 7.01 10^3/uL (4.4-10.8)
[2021-09-23] MEDS: Albuterol/Ipratropium 3 ML UPD VIAL UPD (16:35)
[2021-09-23] MEDS: methylPREDNISolone SUCC 125 MG VIAL IVP (16:35)
[2021-09-23] MEDS: Normal Saline 250 ML IV (16:35)
[2021-09-23 16:37] VITALS: RESP 18
[2021-09-23 16:49] LABS: ALT 14 U/L (14-59); AST 17 U/L (15-37); Albumin 3.2 g/dL (3.4-5.0); Alkaline Phosphatase 101 U/L (46-116); Anion Gap 3.2 mmol/L (3-11); BUN 13 mg/dL (7-18); Bilirubin, Total 0.4 mg/dL (0.2-1.0); CO2 37.8 mmol/L (21.0-32.0); Calcium 8.4 mg/dL (8.5-10.1); Chloride 103 mmol/L (98-107); Estimated GFR 53.48 (mL/min/1.73m2); Glucose 138 mg/dL (74-106); Magnesium 2.1 mg/dL (1.8-2.4); Potassium 3.8 mmol/L (3.5-5.1); Sodium 144 mmol/L (136-145); Total Protein 6.9 g/dL (6.4-8.2); Troponin I < 0.05 ng/mL (<0.06)
[2021-09-23 16:53] LABS: NT-proBNP 525 pg/mL (<300)
--- NOTE | 2021-09-23 17:47 | DI.VRAD_ITS ---
PROCEDURE INFORMATION: Exam: XR Chest Exam date and time: 09/23/2021 4:14 PM Age: 80 years old Clinical indication: Other: Cough/ SOB TECHNIQUE: Imaging protocol: XR of the chest. Views: 2 views. COMPARISON: CT CHEST WO 08/25/2021 10:25 AM FINDINGS: Lungs: Unremarkable. No consolidation. Pleural spaces: Unremarkable. No pleural effusion. No pneumothorax. Heart/Mediastinum: Unremarkable. No cardiomegaly. Vasculature: Aortic calcifications. Bones/joints: Degenerative arthritis in the spine and shoulders. IMPRESSION: No acute findings Dictated and Authenticated by: Shannon Martin MD. Ordering:YURI Philippe MD
[2021-09-23 18:07] LABS: Bilirubin Negative (Negative); Blood Negative (Negative); Clarity Clear (Clear); Glucose Negative (Negative); Ketones Negative (Negative); Leukocyte Esterase Negative (Negative); Nitrite Negative (Negative); Specific Gravity >= 1.030 (1.005-1.025); Urobilinogen 0.2 EU/dL (Up TO 0.2); pH 5.5 (5-8)
[2021-09-23] MEDS: Naloxone 0.4 MG/ML VIAL IVP (18:49)
[2021-09-23 19:36] VITALS: BP 122/71; PULSE 61; TEMP 37.2; O2SAT 91
[2021-09-23 19:49] VITALS: BP 122/71; PULSE 61; RESP 18; TEMP 37.2; O2SAT 91
--- NOTE | 2021-09-26 14:44 | NUR.NOTE ---
Nursing Note: Patient was called on 09/24 about items left from her 09/23 ED visit. She left a bra, O2 tubing, discharge instructions, and Narcan. She just called stating that she did not want these items and they can be discarded. She asked about an appt. this coming Monday. She will call [facility] or her PCP to find out about this appt. The bra, tubing and discharge instructions were discarded. Zora Slaughter RN spoke with pharmacy, the Narcan was put in a ziplok bag, patient label put on it, they will brain picker and discard. Diana Mckinney
== END 2021-09-23 20:57 | disposition home or self-care (01) ==
PROVIDERS: Emergency Provider Physician Assistant; PCP Family Medicine
DX: T40.2X1A Poisoning by other opioids, accidental (unintentional), initial encounter (principal); R40.0 Somnolence; R06.02 Shortness of breath; R05.9 Cough, unspecified; R53.1 Weakness
CPT/HCPCS: 51701; 80053; 93005; 94640; 96361; 96374; 96375; 99284; 71046; 81003; 83735; 83880; 84484; 85025; 93010; J2310; J2930; J7620

== ENCOUNTER 2021-10-04 02:38 | Outpatient (CLI) | payer MEDICARE, SELFPAY ==
[2021-10-04] MEDS: Albuterol HFA 18 GM 200 PUFF INH IH (11:12)
[2021-10-04] MEDS: Inhaler, Assist Device 1 EACH MC (11:13)
--- NOTE | 2021-10-04 14:54 | W.PFT ---
Date of service: 10/04/21 Time of Service: 09:57 Pulmonary Function Test Result Requesting Provider Jose Indications: Dyspnea on exertion/cough Interpretation Spirometry: There is mild airflow limitation. There is no significant bronchodilator response Lung Volumes: There is air trapping and hyperinflation. Diffusion Capacity: The diffusion is reduced Airway Pressure: Airways resistance is normal Impression Mild obstruction with a reduced diffusion. In the correct clinical context this may represent COPD with emphysema. Clinical Correlation therefore is recommended.
== END 2021-10-04 02:39 | disposition home or self-care (01) ==
LOC: RT 02:38
PROVIDERS: PCP Family Medicine; Visit Provider Student in an Organized Health Care Education/Training Program
DX: J44.9 Chronic obstructive pulmonary disease, unspecified (principal); R06.09 Other forms of dyspnea; R05.3 Chronic cough; F17.210 Nicotine dependence, cigarettes, uncomplicated; R94.2 Abnormal results of pulmonary function studies
CPT/HCPCS: 94060; 94726; 94729

== ENCOUNTER → 2021-10-05 10:42 | Outpatient (BNVA) | payer MEDICARE, SELFPAY | PROVIDERS: PCP Family Medicine; Referring Provider Nurse Practitioner Family; Visit Provider Psychiatry & Neurology Neurology | DX: R26.89 Other abnormalities of gait and mobility (principal); I10 Essential (primary) hypertension; J44.9 Chronic obstructive pulmonary disease, unspecified; Z99.81 Dependence on supplemental oxygen | CPT/HCPCS: 99214 ==

== ENCOUNTER 2021-10-12 00:52 | Outpatient (CLI) | payer MEDICARE, SELFPAY ==
--- NOTE | 2021-10-12 | DI.RAD_ITS ---
Exam(s) XR LUMBAR SPINE COMPLETE EXAM: XR LUMBAR SPINE COMPLETE CLINICAL HISTORY: DAMARI HIP PAIN, M25.559, LUMBAR BACK PAIN WITH RADICULOPATHY, M54.16. TECHNIQUE: 2D digital imaging was performed of the lumbar spine. Five images were obtained. AP, la teral, right oblique, left oblique and L5-S1 spot views were obtained. COMPARISON: CT CT THORAX ABD/PEL CTA from 02/18/[address] THORAX ABD/PEL CTA from 02/18/2020 FINDINGS: BONES: No fracture or destructive lesion. Vertebral bodies are unremarkable. Multilevel degenerative changes are seen in the facets. There is endplate sclerosis throughout the lumbar spine, particularl y at L1-L2 L2-L3 and L4-L5. Endplate osteophytes are present throughout the lumbar spine. DISKS: There is disc space narrowing at all levels of the lumbar spine with relative sparing of the L 5-S1 level. Findings are most marked at L2-L3 and L4-L5. ALIGNMENT: Lumbar spinal alignment is within normal limits. No spondylolysis or spondylolisthesis. SOFT TISSUE: Extensive atherosclerosis is present. There is aneurysmal dilatation of the abdominal a jovana again seen. IMPRESSION: 1. Marked degenerative changes in the lumbar spine. 2. No acute fracture or subluxation. DATA REPOSITORY: RADIATION DOSE DELIVERED:
== END 2021-10-12 01:12 ==
PROVIDERS: PCP Family Medicine; Visit Provider Family Medicine
DX: M25.551 Pain in right hip (principal); M25.552 Pain in left hip; M51.16 Intervertebral disc disorders with radiculopathy, lumbar region; M47.26 Other spondylosis with radiculopathy, lumbar region
CPT/HCPCS: 72110

== ENCOUNTER 2021-11-10 14:16 | Outpatient (REF) | payer MEDICARE, SELFPAY ==
[2021-11-12 18:43] LABS: COVID-19 RT-PCR UVMMC Result Negative (Negative)
== END 2021-11-10 14:17 | disposition home or self-care (01) ==
LOC: NCHCN 14:16
PROVIDERS: PCP Family Medicine; Visit Provider Nurse Practitioner Family
DX: Z20.822 Contact with and (suspected) exposure to COVID-19 (principal); R05.8 Other specified cough
CPT/HCPCS: U0003

== ENCOUNTER 2022-01-12 17:06 | Outpatient (REF) | payer MEDICARE, SELFPAY ==
[2022-01-12 12:25] LABS: ESR 12 mm/hr (0-30)
[2022-01-12 12:37] LABS: Anion Gap 4.5 mmol/L (3-11); BUN 22 mg/dL (7-18); C-Reactive Protein 0.35 mg/dL (0.0-0.3); CO2 35.5 mmol/L (21.0-32.0); Calcium 8.9 mg/dL (8.5-10.1); Chloride 106 mmol/L (98-107); Estimated GFR 53.35 (mL/min/1.73m2); Glucose 118 mg/dL (74-106); Potassium 4.3 mmol/L (3.5-5.1); Sodium 146 mmol/L (136-145)
[2022-01-12 22:09] LABS: Rheumatoid Factor <8.6 IU/mL (<12.0)
[2022-01-13 13:50] LABS: ANA Interpretation Negative (Negative)
== END 2022-01-12 17:07 | disposition home or self-care (01) ==
LOC: NCHCN 17:06
PROVIDERS: PCP Family Medicine; Visit Provider Family Medicine
DX: I10 Essential (primary) hypertension (principal); I25.10 Atherosclerotic heart disease of native coronary artery without angina pectoris; J44.9 Chronic obstructive pulmonary disease, unspecified; F41.8 Other specified anxiety disorders; N32.81 Overactive bladder; Z86.2 Personal history of diseases of the blood and blood-forming organs and certain disorders involving the immune mechanism
CPT/HCPCS: 80048; 85652; 86038; 86140; 86431

== ENCOUNTER → 2022-02-08 01:21 | Outpatient (CLI) | payer MEDICARE, SELFPAY ==
--- NOTE | 2022-02-08 09:00 | DI.CT_ITS ---
Exam(s) CT ABDOMEN PELVIS W EXAM: CT ABDOMEN PELVIS W CLINICAL HISTORY: SMOKER, F17.210; AAA, I71.4 TECHNIQUE: Imaging Protocol: Axial computed tomography images with coronal and sagittal reformatted images were created and reviewed CONTRAST MATERIAL: Intravenous: Omnipaque 350 Contrast volume:100 mL Oral: Yes COMPARISON: CT CT THORAX ABD/PEL CTA from 02/18/[address] BRAIN NECK CTA from 06/13/2021 FINDINGS: ABDOMEN: Liver: Normal density. No measurable mass. Portal, Superior Mesenteric, and Splenic Veins: Unremarkable. Gallbladder and Biliary Tract: No radiodense calculus or dilation. Pancreas: Normal density, no abnormal calcifications or inflammatory process. Spleen: Normal. Adrenals: No masses seen. Kidneys: Normal size, contour and axis. Nonobstructing 5 mm stone in the midpole of the left kidney. Bilateral simple renal cysts. No follow-up is recommended. Abdominal Aorta: The infrarenal abdominal aortic aneurysm measures 3.7 x 3.7 cm. Bowel: No obstruction or bowel wall thickening. There is a large amount of stool throughout the colon which may represent constipation. No evidence of appendicitis. There is a small hiatal hernia. Posts urgical changes at the rectosigmoid junction. Peritoneal Cavity: No ascites, collection or mesenteric inflammatory response. No free air. Lymph Nodes: Within normal limits. Bones: Within normal limits for the patient's age. Soft Tissues: Unremarkable. PELVIS: Bladder: Symmetric distention, no gross wall thickening. Reproductive Organs: Status post hysterectomy. Lymph Nodes: Within normal limits. Bones: Within normal limits for the patient's age. IMPRESSION: 1. 3.7 x 3.7 cm infrarenal abdominal aortic aneurysm. 2. Left nephrolithiasis no evidence of hydronephrosis. 3. Constipation. 4. Bilateral renal cysts. RADIATION DOSE DELIVERED: 547.61mGy.cm Total DLP DATA REPOSITORY: All CT scans at this facility are submitted to the National Radiology Data Registry (NRDR) Dose Index Registry (DIR) with the [employer] (ACR). RADIATION OPTIMIZATION: All CT scans at this facility use at least one of these dose optimization te chniques: automated exposure control; mA and/or kV adjustment per patient size (includes targeted exa ms where dose is matched to clinical indication); or iterative reconstruction.
[2022-02-08] MEDS: Breeza Beverage 473 ML BTL 950 ML PO (09:18)
[2022-02-08] MEDS: Omnipaque 350 MG/ML 50 ML BTL IJ (09:18)
--- NOTE | 2022-02-08 09:38 | DI.CT_ITS ---
Exam(s) CT CHEST WO EXAM: CT CHEST WO CLINICAL HISTORY: SMOKER, F17.210. TECHNIQUE: Imaging protocol: Axial computed tomography images were obtained and coronal and sagittal reformatted images were created and reviewed. COMPARISON: CT CT CHEST WO from 08/25/[address] CHEST WO from 02/08/2022 FINDINGS: Tracheobronchial tree: Patent where visualized. Pulmonary parenchyma: Calcified granuloma are present. Emphysematous changes are present in the lung s. There is a 3 mm noncalcified pulmonary nodule in the left upper lobe. There is a 4 mm noncalcifi ed pulmonary nodule in the anterior aspect of the left upper lobe. The pulmonary nodules appears sta ble. No new pulmonary nodules are present. Scarring or atelectasis is seen in the lung bases. No f ocal consolidating infiltrates are present. Mediastinum and Gin: No dominant adenopathy or fluid collection. The esophagus is unremarkable. Thyroid gland: Unremarkable. Pleura: No effusion or pneumothorax. Heart: The heart is not dilated. Coronary artery calcifications are present. No pericardial effusion . Aorta: The ascending thoracic aorta measures 4.4 x 4.4 cm. There is atherosclerosis throughout the t horacic aorta. Upper abdomen: Unremarkable. Lymph nodes: Within normal limits. Soft tissues: Unremarkable. Bones:Within normal limits for the patient's age. IMPRESSION: 1. Stable pulmonary nodules. For low risk patients, optional CT scan in 12 months may be obtained. For high risk patients (history of smoking or other risk factors), a CT scan in 12 months may be obta ined. (Dali et al, 2017). 2. Stable size of the thoracic aorta.. 3. Pulmonary emphysema. 4. Atherosclerosis and coronary artery calcification. RADIATION DOSE DELIVERED: 77.44mGy.cm Total DLP 77.44mGy.cm Total DLP DATA REPOSITORY: All CT scans at this facility are submitted to the National Radiology Data Registry (NRDR) Dose Index Registry (DIR) with the [employer] (ACR). RADIATION OPTIMIZATION: All CT scans at this facility use at least one of these dose optimization te chniques: automated exposure control; mA and/or kV adjustment per patient size (includes targeted exa ms where dose is matched to clinical indication); or iterative reconstruction.
[2022-02-08] MEDS: Omnipaque 350 MG/ML 100 ML BTL IJ (09:42)
== END ==
PROVIDERS: PCP Family Medicine; Visit Provider Family Medicine
DX: F17.210 Nicotine dependence, cigarettes, uncomplicated (principal); J98.4 Other disorders of lung; R91.8 Other nonspecific abnormal finding of lung field; J43.8 Other emphysema; I71.4 Abdominal aortic aneurysm, without rupture; N20.0 Calculus of kidney; K59.00 Constipation, unspecified; K44.9 Diaphragmatic hernia without obstruction or gangrene; N28.1 Cyst of kidney, acquired
CPT/HCPCS: 71250; 74177; J3490; Q9967

== ENCOUNTER → 2022-03-24 14:42 | Outpatient (BNVA) | payer MEDICARE, SELFPAY | PROVIDERS: PCP Family Medicine; Referring Provider Family Medicine; Visit Provider Nurse Practitioner Gerontology | DX: R31.29 Other microscopic hematuria (principal); N28.89 Other specified disorders of kidney and ureter; N32.81 Overactive bladder | CPT/HCPCS: 81003; 99214 ==

== ENCOUNTER → 2022-04-18 12:56 | Outpatient (CLI) | payer MEDICARE, SELFPAY ==
--- NOTE | 2022-04-18 14:44 | DI.RAD_ITS ---
Exam(s) XR CERVICAL SPINE COMP 4-5V EXAM: XR CERVICAL SPINE COMP 4-5V CLINICAL HISTORY: CERVICALGIA--M54.2. TECHNIQUE: 2D digital imaging was performed. Six images were obtained. AP, odontoid, lateral and orestes ateral oblique images were obtained. COMPARISON: No exams were available for comparison FINDINGS: The odontoid is intact. The lateral masses are well aligned. The cervical spine is convex to the lef t. Endplate osteophytes are seen throughout the cervical spine. There is disc space narrowing at C4 -5 through C7-T1. Degenerative changes of the facets are present throughout the cervical spine. No acute fracture or subluxation is present. There is neural foraminal narrowing on the right at C5-C6 a nd C6-C7. Neural foraminal narrowing on the left is seen at C5-C6. The cervical thoracic junction is well maintained. The prevertebral soft tissues are unremarkable. Lung apices are clear. IMPRESSION: Multilevel degenerative changes in the cervical spine resulting in neural foraminal stenosis as descr ibed above. DATA REPOSITORY: RADIATION DOSE DELIVERED:
== END ==
PROVIDERS: PCP Family Medicine; Visit Provider Family Medicine
DX: M50.322 Other cervical disc degeneration at C5-C6 level; M50.323 Other cervical disc degeneration at C6-C7 level; M47.812 Spondylosis without myelopathy or radiculopathy, cervical region
CPT/HCPCS: 72050

== ENCOUNTER → 2022-05-11 09:06 | Outpatient (CLI) | payer MEDICARE, SELFPAY ==
--- NOTE | 2022-05-11 | DI.US_ITS ---
Exam(s) US LOWER EXTREMITY VENOUS LT EXAM: US LOWER EXTREMITY VENOUS LT CLINICAL HISTORY: LEG EDEMA, R60.0 TECHNIQUE: Grayscale, color, and doppler imaging of the deep venous system of the left lower extremi ty was performed. COMPARISON: US US CAROTID from 04/05/2021 FINDINGS: There is no evidence of intraluminal thrombus and there is normal compression and augmentation demons trated within the common femoral vein, femoral vein, and popliteal vein. In the ipsilateral calf the interrogated veins also exhibit normal compression/ augmentation properti es. The ipsilateral saphenofemoral junction is patent. Meeks's cyst noted in left popliteal fossa, measuring 4.8 x 1.2 x 2.6 cm. IMPRESSION: 1. No evidence of DVT in the left lower extremity. Meeks cyst noted. DATA REPOSITORY:
== END ==
PROVIDERS: PCP Family Medicine; Visit Provider Family Medicine
DX: M71.22 Synovial cyst of popliteal space [Baker], left knee
CPT/HCPCS: 93971

== ENCOUNTER → 2022-05-17 00:21 | Outpatient (CLI) | payer MEDICARE, SELFPAY ==
--- NOTE | 2022-05-17 | DI.MRI_ITS ---
Exam(s) MR CERVICAL SPINE WO EXAM: MR CERVICAL SPINE WO CLINICAL HISTORY: CERVICALGIA,M54.2,RADICULOPATHY,M54.10,HEADACHE,R51.9 TECHNIQUE: Multiplanar multisequence MRI of the cervical spine was performed without intravenous con trast. COMPARISON: CR XR CERVICAL SPINE COMP 4-5V from 04/18/2022 FINDINGS: CERVICOMEDULLARY JUNCTION: Intact with no evidence of cerebellar tonsillar ectopia. No obvious abnor mality of the odontoid process. No evidence of Chiari 1 malformation. CERVICAL SPINAL CORD: There is no abnormal signal in the cervical spinal cord and no evidence of foca l cord atrophy nor focal cord swelling. OSSEOUS:There are no cervical fractures evident. No significant osseous lesions in the cervical vert ebrae. However, there are sub endplate Modic-type marrow edema changes at C3-4 and see and C5-6. INDIVIDUAL LEVELS: C2-3: Small disc height. No disc herniation. No central canal stenosis. There is some facet arthro sharon bilaterally. Minimal foraminal stenosis. C3-4: Moderate-advanced disc space narrowing. Bilateral disc-osteophyte complexes. Prominent annular bulging. Also some degenerative change in the facet joints. There is mild-moderate central spinal canal stenosis at this level. No abnormal cord signal. There is moderate degenerative change in bot h facet joints. There is mild foraminal stenosis bilaterally at this level. C4-5: There is advanced disc space narrowing at this level and bilateral Luschka joint osteophytes ev ident. There is annular bulging but without a dominant disc herniation and central canal dimensions are lower normal. There is moderate degenerative change in both facet joints at this level and mild bilateral foraminal stenosis. C5-6: Advanced disc space narrowing. Mild annular bulging without a dominant disc herniation or cent ral canal stenosis. Small bilateral Luschka joint osteophytes. Moderate degenerative changes in the facet joints. Mild bilateral foraminal stenosis. C6-7: Advanced disc space narrowing. Mild annular bulging without a dominant disc herniation. No ce ntral canal stenosis. Mild degenerative facet joint changes. No obvious foraminal stenosis evident at this level. C7-T1: Advanced disc space narrowing. Mild anterolisthesis C7 upon T1 related to facet arthropathy c hanges at this level. Central canal dimensions are lower normal. Some bilateral foraminal stenosis noted. IMPRESSION: 1. There is multilevel chronic degenerative disc disease as described pre individual level above and some levels also exhibit bilateral Luschka joint osteophytes, these being most prominent at C3-4 and C4-5 and C5-6 levels. There is also an element of multilevel facet arthropathy. 2. There is central spinal canal stenosis (mild-moderate) at C3-4 level. This is mostly related to p rominent annular bulging. There is no abnormal signal in the cervical spinal cord at this level nor elsewhere and no evidence of focal cord atrophy nor focal cord swelling. DATA REPOSITORY:
== END ==
PROVIDERS: PCP Family Medicine; Visit Provider Family Medicine
DX: M48.02 Spinal stenosis, cervical region (principal); M50.11 Cervical disc disorder with radiculopathy, high cervical region; R51.9 Headache, unspecified; M25.78 Osteophyte, vertebrae
CPT/HCPCS: 72141

== ENCOUNTER → 2022-08-04 01:25 | Outpatient (CLI) | payer MEDICARE, SELFPAY ==
--- NOTE | 2022-08-04 11:18 | DI.RAD_ITS ---
Exam(s) XR HIP LT COMPLETE AP PELVIS EXAM: XR HIP LT COMPLETE AP PELVIS CLINICAL HISTORY: LEFT HIP PAIN M25.559 TECHNIQUE: COMPARISON: CR BILATERAL HIPS ADULT from 06/29/2018 FINDINGS: Three views were obtained. There are mild degenerative changes of both hips. There are severe degen erative changes of the lower lumbar spine and mild degenerative changes of both SI joints. There is no evidence of acute fracture or dislocation. IMPRESSION: RADIATION DOSE DELIVERED: Total DLP
== END ==
PROVIDERS: PCP Family Medicine; Visit Provider Family Medicine
DX: M16.0 Bilateral primary osteoarthritis of hip (principal); M47.816 Spondylosis without myelopathy or radiculopathy, lumbar region
CPT/HCPCS: 73502

== ENCOUNTER 2022-08-25 02:35 | Emergency (ER) | payer MEDICARE, SELFPAY ==
--- NOTE | 2022-08-25 02:30 | RT.EKG_ITS ---
APPROVED REPORT Exam: Resting ECG Reason for Exam: syncope Patient Location: E HR:76 bpm ECG Measurements Heart Rate 76 AXIS AL 174 P 29 QRSd 99 QRS 56 QT 401 T 21 QTc 452 Conclusion Sinus rhythm...normal P axis, V-rate 60- 99 Consider anterior infarct...Q >30mS in V2-V5
[2022-08-25 02:35] VITALS: BP 143/62; PULSE 80; RESP 18; TEMP 38.9; O2SAT 93
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
[2022-08-25] MEDS: Acetaminophen 325 MG TAB 650 MG PO (03:16)
[2022-08-25] MEDS: Normal Saline 500 ML 1000 ML IV ×2 (03:19→05:00)
[2022-08-25 03:27] LABS: Absolute Basophil Count 0.04 10^3/uL (0.0-0.2); Absolute Eosinophil Count 0.01 10^3/uL (0.0-0.7); Absolute Lymphocyte Count 0.42 10^3/uL (1.2-3.4); Absolute Monocyte Count 0.78 10^3/uL (0.1-0.8); Absolute Neutrophil Count 12.29 10^3/uL (1.2-6.7); Basophils % 0.3; Eosinophils % 0.1; HCT 33.4 % (36.0-46.0); HGB 10.8 g/dL (11.2-15.7); Immature Grans % 0.7; Lymphocytes % 3.1; MCH 31.1 pg (27.0-33.0); MCHC 32.3 % (32.0-36.0); MCV 96 fL (80-95); MPV 10.7 fL (8.0-11.0); Monocytes % 5.7; Neutrophils % 90.1; Platelet Count 209 10^3/uL (130-400); RBC 3.47 10^6/uL (3.93-5.22); RDW 13.4 % (11.7-14.6); RDW-SD 47.4 fL; WBC 13.64 10^3/uL (4.4-10.8)
[2022-08-25 03:40] LABS: Prothrombin Time 10.4 sec (9.3-11.0)
[2022-08-25 03:43] LABS: ALT 15 U/L (14-59); AST 21 U/L (15-37); Albumin 3.5 g/dL (3.4-5.0); Alkaline Phosphatase 87 U/L (46-116); Anion Gap 4.9 mmol/L (3-11); BUN 15 mg/dL (7-18); Bilirubin, Total 1.3 mg/dL (0.2-1.0); CO2 31.1 mmol/L (21.0-32.0); CREATININE 0.8 mg/dL (0.55-1.02); Calcium 8.6 mg/dL (8.5-10.1); Chloride 104 mmol/L (98-107); Estimated GFR 74.44 (mL/min/1.73m2); Glucose 97 mg/dL (74-106); Potassium 3.5 mmol/L (3.5-5.1); Sodium 140 mmol/L (136-145)
[2022-08-25 04:04] LABS: COVID-19 PCR Negative (Negative); Influenza A PCR Negative (Negative); Influenza B PCR Negative (Negative); RSV PCR Negative (Negative)
[2022-08-25 04:06] LABS: Source Nasopharynx
[2022-08-25 04:07] LABS: TSH (W/Ref FT4) 0.65 uIU/mL (0.36-3.74); Troponin I < 50 ng/L (<or=60)
--- NOTE | 2022-08-25 04:15 | DI.CT_ITS ---
Exam(s) CT HEAD WO EXAM: CT HEAD WO CLINICAL HISTORY: fall, loc. TECHNIQUE: Imaging Protocol: Axial computed tomography images with coronal and sagittal reformatted images were created and reviewed COMPARISON: CT CT BRAIN NECK CTA from 06/13/2021 FINDINGS: The examination is limited due to patient motion artifact. Ventricles and Extra axial spaces: Normal in size and morphology for the patient's age. Hemorrhage: None. Cerebral parenchyma: There is no evidence of an acute territorial infarct. There are areas of decrea sed attenuation in the white matter most consistent with small vessel ischemic disease. Midline shift: None. Brainstem/Cerebellum: Normal. Calvarium: Normal. Visualized Paranasal sinuses/Mastoids: Clear. Soft Tissues: Unremarkable. IMPRESSION: No acute intracranial process. RADIATION DOSE DELIVERED: 753.99mGy.cm Total DLP DATA REPOSITORY: All CT scans at this facility are submitted to the National Radiology Data Registry (NRDR) Dose Index Registry (DIR) with the [employer] ([employer]). RADIATION OPTIMIZATION: All CT scans at this facility use at least one of these dose optimization te chniques: automated exposure control; mA and/or kV adjustment per patient size (includes targeted exa ms where dose is matched to clinical indication); or iterative reconstruction.
--- NOTE | 2022-08-25 04:20 | DI.RAD_ITS ---
Exam(s) XR CHEST 1V IN DI DEPT EXAM: XR CHEST 1V IN DI DEPT CLINICAL HISTORY: fall TECHNIQUE: 2D digital imaging was performed of the chest. One image was obtained. An AP view was ob tained. COMPARISON: CR,XR XR CHEST 2V PA LATERAL from 09/23/2021 FINDINGS: MEDIASTINUM: Normal. HEART: Normal. PULMONARY VASCULATURE: Normal. LUNGS: No focal consolidating infiltrates. Chronic interstitial changes are seen likely reflecting f ibrosis. The lungs appear hyperaerated which may represent underlying COPD. PLEURAL SPACE: No pleural effusion or pneumothorax. BONE:Within normal limits for the patient's age. OTHER FINDINGS:Normal. IMPRESSION: No acute pulmonary findings. DATA REPOSITORY: RADIATION DOSE DELIVERED:
--- NOTE | 2022-08-25 04:25 | DI.RAD_ITS ---
Exam(s) XR PELVIS AP EXAM: XR PELVIS AP CLINICAL HISTORY: fall, left hip pain. TECHNIQUE: 2D digital imaging was performed. One image was obtained. COMPARISON: CR XR HIP LT COMPLETE AP PELVIS from 08/04/2022 FINDINGS: BONES: No acute fracture is present. No bony destructive lesion is seen. JOINTS: No dislocation present. Degenerative changes are seen in the hips and lumbar spine. SOFT TISSUE: Normal. IMPRESSION: No acute fracture or dislocation. DATA REPOSITORY: RADIATION DOSE DELIVERED:
[2022-08-25 04:51] VITALS: BP 94/52; PULSE 66; RESP 22; TEMP 37.1; O2SAT 94
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
[2022-08-25 05:27] LABS: Bilirubin Negative (Negative); Blood Trace-intact (Negative); Clarity Clear (Clear); Glucose Negative (Negative); Ketones 15 mg/dL (Negative); Leukocyte Esterase Negative (Negative); Nitrite Negative (Negative); Specific Gravity 1.025 (1.005-1.025); Urobilinogen 0.2 EU/dL (Up TO 0.2)
[2022-08-25 05:37] LABS: Bacteria Negative HPF (Negative); C & S Indicated? No/Sq. Contamination; Crystals Negative HPF (Negative); Epithelial Cells Many HPF (Negative); Mucus Heavy (Negative); Other Cells Few Yeast (Negative); WBC 0-2 HPF (0-5)
[2022-08-25 06:08] VITALS: BP 105/55; PULSE 73; RESP 18; O2SAT 94
== END 2022-08-25 06:12 | disposition home or self-care (01) ==
PROVIDERS: Emergency Provider Emergency Medicine; PCP Family Medicine
DX: E86.0 Dehydration (principal); G89.11 Acute pain due to trauma; M25.552 Pain in left hip; J44.9 Chronic obstructive pulmonary disease, unspecified; I10 Essential (primary) hypertension; R55 Syncope and collapse; W18.2XXA Fall in (into) shower or empty bathtub, initial encounter; Z20.822 Contact with and (suspected) exposure to COVID-19
CPT/HCPCS: 36415; 80053; 87040; 87637; 93005; 99284; 99285; 70450; 71045; 72170; 81003; 81015; 84443; 84484; 85025; 85610; 85730; 93010

== ENCOUNTER 2022-08-25 16:14 | Outpatient (REF) | payer MEDICARE, SELFPAY | END 2022-08-25 16:15 | disposition home or self-care (01) | LOC: NCHCN 16:14 | PROVIDERS: PCP Family Medicine; Visit Provider Family Medicine | DX: R50.9 Fever, unspecified (principal); R10.9 Unspecified abdominal pain; R82.998 Other abnormal findings in urine | CPT/HCPCS: 87086 ==

== ENCOUNTER 2022-09-10 18:30 | Emergency (ER) | payer MEDICARE, SELFPAY ==
[2022-09-10 18:35] VITALS: O2SAT 96
[2022-09-10 18:38] VITALS: BP 141/78; PULSE 70; RESP 16; TEMP 36.7; O2SAT 96
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
[2022-09-10] MEDS: HYDROcodone 5/Acetaminophen 325 TAB PO (18:48)
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
[2022-09-10] MEDS: Lidocaine/Epinephri/Tetracaine Topical Gel 3 ML TP (19:30)
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
[2022-09-10] MEDS: Bacitracin 1 PACKET (20:00)
== END 2022-09-10 20:30 | disposition home or self-care (01) ==
PROVIDERS: Emergency Provider Registered Nurse Emergency; PCP Family Medicine
DX: S97.01XA Crushing injury of right ankle, initial encounter (principal); V03.90XA Pedestrian on foot injured in collision with car, pick-up truck or van, unspecified whether traffic or nontraffic accident, initial encounter
CPT/HCPCS: 29515; 99284; 73590; 73610; 99283

== ENCOUNTER 2022-10-03 16:14 | Outpatient (REF) | payer MEDICARE, SELFPAY ==
[2022-10-03 19:16] LABS: Abs Immature Grans 0.02 10^3/uL (0.0-0.06); Absolute Basophil Count 0.05 10^3/uL (0.0-0.2); Absolute Eosinophil Count 0.14 10^3/uL (0.0-0.7); Absolute Lymphocyte Count 1.72 10^3/uL (1.2-3.4); Absolute Monocyte Count 0.58 10^3/uL (0.1-0.8); Absolute Neutrophil Count 5.48 10^3/uL (1.2-6.7); Basophils % 0.6; Eosinophils % 1.8; HCT 38.1 % (36.0-46.0); HGB 11.9 g/dL (11.2-15.7); Immature Grans % 0.3; Lymphocytes % 21.5; MCH 30.1 pg (27.0-33.0); MCHC 31.2 % (32.0-36.0); MCV 96 fL (80-95); MPV 10.5 fL (8.0-11.0); Monocytes % 7.3; Neutrophils % 68.5; Platelet Count 287 10^3/uL (130-400); RBC 3.96 10^6/uL (3.93-5.22); RDW 13.8 % (11.7-14.6); RDW-SD 48.9 fL; WBC 7.99 10^3/uL (4.4-10.8)
[2022-10-03 19:20] LABS: ESR 27 mm/hr (0-30)
[2022-10-03 19:34] LABS: C-Reactive Protein 0.21 mg/dL (0.0-0.3)
== END 2022-10-03 16:15 | disposition home or self-care (01) ==
LOC: NCHCN 16:14
PROVIDERS: PCP Family Medicine; Visit Provider Nurse Practitioner Family
DX: L03.115 Cellulitis of right lower limb (principal); S97.01XS Crushing injury of right ankle, sequela
CPT/HCPCS: 85652; 85025; 86140

== ENCOUNTER 2022-10-18 09:16 | Emergency (ER) | payer MEDICARE, SELFPAY ==
[2022-10-18 09:22] VITALS: BP 137/66; PULSE 68; RESP 18; TEMP 36.4; O2SAT 97
--- NOTE | 2022-10-18 09:45 | DI.RAD_ITS ---
Exam(s) XR ANKLE LT COMPLETE EXAM: XR ANKLE LT COMPLETE CLINICAL HISTORY: ulcer with pain over medial malleolus. TECHNIQUE: 2D digital imaging was performed. COMPARISON: Prior x-rays 09/10/2022 FINDINGS: Three views: Now a prominent ulcer the medial aspect of the lower calf, this above the level of the medial malleol us. No evidence of fracture or widening of the ankle mortise. Talar dome unremarkable. Bone density in the distal tibia and fibula is normal and there is no radiographic evidence of osteomyelitis. No rad iopaque foreign body. No degenerative changes in the ankle and subtalar joints. IMPRESSION: Large medial skin ulcer. No significant osseous findings. DATA REPOSITORY: RADIATION DOSE DELIVERED:
[2022-10-18 10:49] LABS: Abs Immature Grans 0.01 10^3/uL (0.0-0.06); Absolute Basophil Count 0.06 10^3/uL (0.0-0.2); Absolute Eosinophil Count 0.34 10^3/uL (0.0-0.7); Absolute Lymphocyte Count 1.75 10^3/uL (1.2-3.4); Absolute Monocyte Count 0.55 10^3/uL (0.1-0.8); Absolute Neutrophil Count 3.69 10^3/uL (1.2-6.7); Basophils % 0.9; Eosinophils % 5.3; HCT 37.7 % (36.0-46.0); HGB 11.8 g/dL (11.2-15.7); Immature Grans % 0.2; Lymphocytes % 27.3; MCH 30.1 pg (27.0-33.0); MCHC 31.3 % (32.0-36.0); MCV 96 fL (80-95); MPV 10.1 fL (8.0-11.0); Monocytes % 8.6; Neutrophils % 57.7; Platelet Count 276 10^3/uL (130-400); RBC 3.92 10^6/uL (3.93-5.22); RDW-SD 49.4 fL
[2022-10-18 10:53] LABS: ESR 19 mm/hr (0-30)
[2022-10-18 11:01] LABS: ALT 16 U/L (14-59); AST 23 U/L (15-37); Albumin 3.8 g/dL (3.4-5.0); Alkaline Phosphatase 116 U/L (46-116); Anion Gap 4.6 mmol/L (3-11); BUN 13 mg/dL (7-18); Bilirubin, Total 0.6 mg/dL (0.2-1.0); C-Reactive Protein 0.09 mg/dL (0.0-0.3); CO2 34.4 mmol/L (21.0-32.0); CREATININE 0.9 mg/dL (0.55-1.02); Chloride 103 mmol/L (98-107); Estimated GFR 64.63 (mL/min/1.73m2); Glucose 98 mg/dL (74-106); Potassium 3.6 mmol/L (3.5-5.1); Sodium 142 mmol/L (136-145); Total Protein 7.7 g/dL (6.4-8.2)
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
[2022-10-18 11:43] VITALS: BP 107/61; PULSE 64; RESP 19; TEMP 37.1; O2SAT 94
[2022-10-18 11:56] VITALS: BP 107/61; PULSE 64; RESP 94
--- NOTE | 2022-10-18 18:11 | NUR.NOTE ---
Nursing Note: [facility] wound [facility]bridement for JASMIN/next available.
== END 2022-10-18 11:59 | disposition home or self-care (01) ==
PROVIDERS: Emergency Provider Physician Assistant; PCP Family Medicine
DX: L97.319 Non-pressure chronic ulcer of right ankle with unspecified severity (principal); M25.512 Pain in left shoulder; J43.9 Emphysema, unspecified; I10 Essential (primary) hypertension; I25.2 Old myocardial infarction; Z79.82 Long term (current) use of aspirin
CPT/HCPCS: 36415; 80053; 85652; 99283; 73610; 85025; 86140; 99284

== ENCOUNTER 2022-10-28 16:12 | Outpatient (REF) | payer MEDICARE, SELFPAY | END 2022-10-28 16:13 | disposition home or self-care (01) | LOC: NCHCN 16:12 | PROVIDERS: PCP Family Medicine; Visit Provider Nurse Practitioner Family | DX: L97.211 Non-pressure chronic ulcer of right calf limited to breakdown of skin (principal) | CPT/HCPCS: 87077; 87070; 87186; 87205 ==

== ENCOUNTER → 2022-11-02 10:02 | Outpatient (BNVA) | payer MEDICARE, SELFPAY | PROVIDERS: PCP Family Medicine; Referring Provider Family Medicine; Visit Provider Physical Therapy Assistant | DX: S97.01XD Crushing injury of right ankle, subsequent encounter (principal); V03.90XD Pedestrian on foot injured in collision with car, pick-up truck or van, unspecified whether traffic or nontraffic accident, subsequent encounter | CPT/HCPCS: 99214 ==

== ENCOUNTER → 2022-11-04 12:01 | Outpatient (BNVA) | payer MEDICARE, SELFPAY | PROVIDERS: PCP Family Medicine; Referring Provider Family Medicine; Visit Provider Surgery | DX: Z51.89 Encounter for other specified aftercare (principal); S97.01XD Crushing injury of right ankle, subsequent encounter; X58.XXXD Exposure to other specified factors, subsequent encounter; F17.210 Nicotine dependence, cigarettes, uncomplicated; J43.9 Emphysema, unspecified; I25.10 Atherosclerotic heart disease of native coronary artery without angina pectoris | CPT/HCPCS: 99213 ==

== ENCOUNTER 2023-01-04 14:27 | Outpatient (CLI) | payer MEDICARE, SELFPAY ==
--- NOTE | 2023-01-04 14:00 | DI.RAD_ITS ---
Exam(s) XR SHOULDER RT COMPLETE 2+V EXAM: XR SHOULDER RT COMPLETE 2+V CLINICAL HISTORY: right shoulder pain. TECHNIQUE: 2D digital imaging was performed. Two views. COMPARISON: No exams were available for comparison FINDINGS: BONES: No acute fracture is present. No bony destructive lesion is seen. Visualized portions of the ribs are unremarkable. JOINTS: No dislocation present. Spurring is noted at the AC joint, mild. There is narrowing of the glenohumeral joint and spurring inferiorly. Subchondral cysts are seen in the humeral head. SOFT TISSUE: There is a question of a shoulder joint effusion. The visualized portions of right lung are clear. IMPRESSION: Degenerative changes. Question of a joint effusion. DATA REPOSITORY: RADIATION DOSE DELIVERED:
== END 2023-01-04 14:28 | disposition home or self-care (01) ==
LOC: DIORS 14:27
PROVIDERS: PCP Family Medicine; Referring Provider Family Medicine; Visit Provider Student in an Organized Health Care Education/Training Program
DX: M19.011 Primary osteoarthritis, right shoulder
CPT/HCPCS: 20610; 99203; 99213; 73030; J1030

== ENCOUNTER → 2023-03-23 12:22 | Outpatient (BNVA) | payer OTHER, SELFPAY | PROVIDERS: PCP Family Medicine; Visit Provider Nurse Practitioner Gerontology | DX: N28.89 Other specified disorders of kidney and ureter (principal); N32.81 Overactive bladder; R31.29 Other microscopic hematuria | CPT/HCPCS: 36415; 81003; 99214 ==

== ENCOUNTER 2023-03-23 12:49 | Outpatient (REF) | payer OTHER, SELFPAY ==
[2023-03-23 13:46] LABS: ALT 23 U/L (14-59); AST 27 U/L (15-37); Albumin 3.6 g/dL (3.4-5.0); Alkaline Phosphatase 108 U/L (46-116); Anion Gap 1.9 mmol/L (3-11); BUN 15 mg/dL (7-18); Bilirubin, Total 0.6 mg/dL (0.2-1.0); CO2 38.1 mmol/L (21.0-32.0); Chloride 103 mmol/L (98-107); Glucose 140 mg/dL (74-106); Potassium 5.3 mmol/L (3.5-5.1); Sodium 143 mmol/L (136-145); Total Protein 7.4 g/dL (6.4-8.2)
== END 2023-03-23 12:50 | disposition home or self-care (01) ==
LOC: LBN 12:49
PROVIDERS: PCP Family Medicine; Visit Provider Nurse Practitioner Gerontology
DX: N28.89 Other specified disorders of kidney and ureter (principal); N32.81 Overactive bladder; R31.29 Other microscopic hematuria; I10 Essential (primary) hypertension
CPT/HCPCS: 80053

== ENCOUNTER 2023-04-04 01:38 | Outpatient (CLI) | payer OTHER, SELFPAY ==
--- NOTE | 2023-04-04 06:45 | DI.CT_ITS ---
Exam(s) CT ABDOMEN WO/W EXAM: CT ABDOMEN WO/W CLINICAL HISTORY: f/u lt renal mass, hematuria,n28.89,r31.29 TECHNIQUE: Imaging Protocol: Axial computed tomography images with coronal and sagittal reformatted images were created and reviewed CONTRAST MATERIAL: Intravenous: Omnipaque 350 contrast volume:100 mL Oral: No COMPARISON: CT CT ABDOMEN PELVIS W from 02/08/2022 CT CTA CHEST ABD PELVIS LEB from 07/15/2022 FINDINGS: ABDOMEN: Lung Bases: Coronary artery calcifications and/or stents are present. Liver: Normal density. There is a tiny hypodensity in the right lobe of the liver. It is too small f or further characterization but likely reflects a small cyst. No suspicious hepatic lesions are seen . Portal, Superior Mesenteric, and Splenic Veins: Unremarkable. Gallbladder and Biliary Tract: No radiodense calculus or dilation. Pancreas: Normal density, no abnormal calcifications or inflammatory process. Spleen: Calcified granuloma are seen in the spleen. Adrenals: No masses seen. Kidneys: Normal size, contour and axis. No evidence of hydronephrosis. There are bilateral simple re nal cysts. The largest is seen in the left kidney and measures 1.9 x 2.7 cm. The 1 cm exophytic hyp er dense focus in the lower pole of the right kidney is again seen. It is unchanged in size. It elias ws no enhancement. (44 Hounsfield units without contrast, 42 Hounsfield units venous phase and 40 Ho unsfield units on the delayed images.) This is consistent with a cyst. Abdominal Aorta: There is a 3.9 x 4.1 cm infrarenal abdominal aortic aneurysm. Extensive atheroscler osis is present. Bowel: There is no evidence of bowel obstruction. There is thickening of the wall of the distal stom ach. No other bowel wall thickening is seen. Peritoneal Cavity: No ascites, collection or mesenteric inflammatory response. No free air. Lymph Nodes: Within normal limits. Bones: Marked degenerative changes are seen throughout the lumbar spine. Soft Tissues: Unremarkable. IMPRESSION: 1. Stable bilateral renal cysts. This includes a hyperdense cyst in the right kidney. This 1 cm exo phytic focus shows no enhancement. 2. Stable infrarenal abdominal aortic aneurysm. RADIATION DOSE DELIVERED: 1,153.45mGy.cm Total DLP DATA REPOSITORY: All CT scans at this facility are submitted to the National Radiology Data Registry (NRDR) Dose Index Registry (DIR) with the [employer] (ACR). RADIATION OPTIMIZATION: All CT scans at this facility use at least one of these dose optimization te chniques: automated exposure control; mA and/or kV adjustment per patient size (includes targeted exa ms where dose is matched to clinical indication); or iterative reconstruction.
--- NOTE | 2023-04-04 06:45 | DI.RAD_ITS ---
Exam(s) XR CHEST 2V PA LATERAL EXAM: XR CHEST 2V PA LATERAL CLINICAL HISTORY: renal mass,lt,hematuria,n28.89,r31.29 TECHNIQUE: 2D digital imaging was performed of the chest. Two images were obtained. PA and lateral views were obtained. COMPARISON: CR,XR XR CHEST 2V PA LATERAL from 09/23/2021 CR,XR XR CHEST 1V IN DI DEPT from 08/25/2022 FINDINGS: MEDIASTINUM: Normal. HEART: Normal. PULMONARY VASCULATURE: Normal. LUNGS: The lungs are hyperinflated consistent with underlying COPD. No focal consolidating infiltrat es are present. No pulmonary nodules are identified. PLEURAL SPACE: No pleural effusion or pneumothorax. BONE:Within normal limits for the patient's age. OTHER FINDINGS:Normal. IMPRESSION: No acute pulmonary findings. DATA REPOSITORY: RADIATION DOSE DELIVERED:
[2023-04-04] MEDS: Omnipaque 350 MG/ML 500 ML BTL-Imaging package 100 ML IJ (10:00)
[2023-04-04] MEDS: Normal Saline - Diluent 50 ML VIAL IJ (10:00)
[2023-04-04] MEDS: Normal Saline Flush 10 ML SYR IVP (10:01)
== END 2023-04-04 01:58 ==
LOC: DI 01:39
PROVIDERS: PCP Family Medicine; Visit Provider Nurse Practitioner Gerontology
DX: N28.89 Other specified disorders of kidney and ureter (principal); N32.81 Overactive bladder; R31.29 Other microscopic hematuria
CPT/HCPCS: 71046; 74170

== ENCOUNTER 2023-04-07 14:33 | Outpatient (REF) | payer OTHER, SELFPAY ==
[2023-04-07 15:43] LABS: Hemoglobin A1C 5.7 % (<5.7)
[2023-04-07 16:15] LABS: Anion Gap -0.9 mmol/L (3-11); BUN 15 mg/dL (7-18); C-Reactive Protein 0.11 mg/dL (0.0-0.3); CO2 40.9 mmol/L (21.0-32.0); CREATININE 0.9 mg/dL (0.55-1.02); Calcium 9.3 mg/dL (8.5-10.1); Chloride 103 mmol/L (98-107); Estimated GFR 64.23 (mL/min/1.73m2); Glucose 98 mg/dL (74-106); Sodium 143 mmol/L (136-145)
== END 2023-04-07 14:34 | disposition home or self-care (01) ==
LOC: NCHCN 14:33
PROVIDERS: PCP Family Medicine; Visit Provider Family Medicine
DX: M54.12 Radiculopathy, cervical region (principal); R73.09 Other abnormal glucose; I10 Essential (primary) hypertension; N32.81 Overactive bladder; H53.8 Other visual disturbances; R79.89 Other specified abnormal findings of blood chemistry
CPT/HCPCS: 80048; 83036; 86140

== ENCOUNTER 2023-04-21 00:17 | Outpatient (CLI) | payer OTHER, SELFPAY ==
--- NOTE | 2023-04-21 10:30 | DI.RAD_ITS ---
Exam(s) XR THORACIC SPINE COMPLETE EXAM: XR THORACIC SPINE COMPLETE CLINICAL HISTORY: CHEST WALL PAIN R07.89. TECHNIQUE: 2D digital imaging was performed of the thoracic spine. Three views were obtained. AP, swimmer's and lateral views were obtained. COMPARISON: CR XR CHEST 2V PA LATERAL from 04/04/2023 FINDINGS: BONES: There is no fracture or destructive lesion. There are varying degrees of disc space narrowing and endplate osteophytes throughout the thoracic spine consistent with degenerative changes. DISKS:Alignment is within normal limits. Interverebral disc spaces are maintained. SOFT TISSUE: Visualized lungs are clear. There is tortuosity and atherosclerosis of the thoracic aort a. IMPRESSION: Moderate degenerative changes in the thoracic spine. DATA REPOSITORY: RADIATION DOSE DELIVERED:
--- NOTE | 2023-04-21 11:26 | DI.DEXA_ITS ---
Exam(s) XR DEXA BONE DENSITY W/WO JULIO C EXAM: XR DEXA BONE DENSITY W/WO JULIO C CLINICAL HISTORY: POSTMENOPAUSAL Z78.0 SCREENING FOR OSTEOPOROSIS TECHNIQUE: COMPARISON: No exams were available for comparison FINDINGS: Lateral Spine Image: Unremarkable. No compression deformities identified. Left hip: Total T-Score: -1.7 Total Z-Score: 0.4 T- and Z-scores: Findings are consistent with osteopenia. Lumbar Spine: Total T-Score: 3.6 Total Z-Score: 6.4 T- and Z-scores: Within normal limits. IMPRESSION: No evidence of osteoporosis.
== END 2023-04-21 00:37 ==
LOC: DI 00:17
PROVIDERS: PCP Family Medicine; Visit Provider Family Medicine
DX: Z78.0 Asymptomatic menopausal state (principal); Z13.820 Encounter for screening for osteoporosis; M51.34 Other intervertebral disc degeneration, thoracic region; R07.89 Other chest pain
CPT/HCPCS: 77080; 72072

== ENCOUNTER 2023-05-12 19:02 | Observation (INO) | payer MEDICARE, SELFPAY ==
[2023-05-12] VITALS (19 sets, daily range): BP systolic 108–136; BP diastolic 48–94; PULSE 48–82; RESP 14–24; TEMP 36.9–37; O2SAT 80–92
--- NOTE | 2023-05-12 19:30 | RT.EKG_ITS ---
APPROVED REPORT Exam: Resting ECG Reason for Exam: chest pain Patient Location: E HR:51 bpm ECG Measurements Heart Rate 51 AXIS UT 210 P 7 QRSd 91 QRS 17 QT 486 T 29 QTc 448 Conclusion Sinus bradycardia...rate< 60 Consider left ventricular hypertrophy...(S V1+R V5/V6) >3.25mV Sinus bradycardia with LVH. When compared to prior 08/25/22.
--- NOTE | 2023-05-12 19:30 | DI.CT_ITS ---
Exam(s) CT CHEST WO EXAM: CT CHEST WO CLINICAL HISTORY: fall, rib pain, hypoxia. TECHNIQUE: Multi planar reconstructions were performed. CONTRAST MATERIAL: None COMPARISON: CT CT CHEST WO from 02/08/2022 FINDINGS: CHEST: LUNGS: Is an unchanged 5 mm nodule in the anterior segment of the left upper lobe. Platelike atelect asis in the lingular segment left lung noted. No pleural effusions. There is a small 3 millimeter u nchanged nodule in the lateral segment of the right middle lobe. Small pleural based infiltrate seen in the posterior aspect of the right lower lobe superior segment, not previously present. This allison ures approximately 1.1 x 1.0 cm. No pleural effusions. MEDIASTINUM: There is no obvious hilar nor mediastinal adenopathy. Visualized thyroid unremarkable.No obvious axillary adenopathy CARDIAC: Heart size upper normal. No pericardial effusion. Coronary artery calcifications noted. T he diameterof the of thoracic aorta is again noted be prominent measuring 4.2 cm at the ascending aor ta level, measuring 2.9 cm at the mid arch level. Measures 3.2 cm proximal descending thoracic aorta and 3.5 cm mid descending thoracic aorta and 3.2 cm distal thoracic aorta. The VISUALIZED UPPER ABDOMEN:Peripherally calcified partially included abdominal aortic aneurysm with karen meter 3.7 cm noted. OSSEOUS: No significant osseous lesions.Multilevel degenerative chronic disc disease in lower thoraci c and lumbar spines noted.. IMPRESSION: 1. Stable small pulmonary nodules. No new nodules nor pleural effusions. 2. Small pleural based infiltrate in the superior segment right lower lobe and platelike atelectasis in the lingular segment of the left lung. 3. Dilated aorta as previously documented. RADIATION DOSE DELIVERED: 347.32mGy.cm Total DLP DATA REPOSITORY: All CT scans at this facility are submitted to the National Radiology Data Registry (NRDR) Dose Index Registry (DIR) with the [employer] (ACR). RADIATION OPTIMIZATION: All CT scans at this facility use at least one of these dose optimization te chniques: automated exposure control; mA and/or kV adjustment per patient size (includes targeted exa ms where dose is matched to clinical indication); or iterative reconstruction.
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
[2023-05-12 20:22] LABS: Abs Immature Grans 0.02 10^3/uL (0.0-0.06); Absolute Basophil Count 0.06 10^3/uL (0.0-0.2); Absolute Eosinophil Count 0.44 10^3/uL (0.0-0.7); Absolute Monocyte Count 0.71 10^3/uL (0.1-0.8); Absolute Neutrophil Count 4.81 10^3/uL (1.2-6.7); Basophils % 0.7; Eosinophils % 5.5; HCT 37.5 % (36.0-46.0); HGB 12.2 g/dL (11.2-15.7); Immature Grans % 0.2; Lymphocytes % 24.9; MCH 31.9 pg (27.0-33.0); MCHC 32.5 % (32.0-36.0); MCV 98 fL (80-95); MPV 10.5 fL (8.0-11.0); Monocytes % 8.8; Neutrophils % 59.9; Platelet Count 223 10^3/uL (130-400); RBC 3.83 10^6/uL (3.93-5.22); RDW 13.3 % (11.7-14.6); RDW-SD 47.8 fL; WBC 8.04 10^3/uL (4.4-10.8)
[2023-05-12 20:53] LABS: ALT 17 U/L (14-59); AST 25 U/L (15-37); Albumin 3.6 g/dL (3.4-5.0); Alkaline Phosphatase 101 U/L (46-116); Anion Gap 6.5 mmol/L (3-11); BUN 16 mg/dL (7-18); Bilirubin, Total 0.7 mg/dL (0.2-1.0); CO2 35.5 mmol/L (21.0-32.0); CREATININE 0.9 mg/dL (0.55-1.02); Calcium 8.7 mg/dL (8.5-10.1); Chloride 102 mmol/L (98-107); Estimated GFR 64.23 (mL/min/1.73m2); Glucose 111 mg/dL (74-106); Potassium 3.5 mmol/L (3.5-5.1); Sodium 144 mmol/L (136-145); Total Protein 7.2 g/dL (6.4-8.2)
[2023-05-12 21:01] LABS: Prothrombin Time 10.2 sec (9.3-11.0)
[2023-05-12] MEDS: MORPHine 4 MG/ML SYR IVP ×2 (21:15→22:13)
--- NOTE | 2023-05-12 21:59 | DI.VRAD_ITS ---
PROCEDURE INFORMATION: Exam: CT Chest Without Contrast; Diagnostic Exam date and time: 05/12/2023 9:26 PM Age: 82 years old Clinical indication: Injury or trauma; Blunt trauma (contusions or hematomas); Injury details: Fall, left rib pain, hypoxia TECHNIQUE: Imaging protocol: Diagnostic computed tomography of the chest without contrast. 3D rendering (Not supervised by radiologist): MIP and/or 3D reconstructed images were created by the technologist. Radiation optimization: All CT scans at this facility use at least one of these dose optimization techniques: automated exposure control; mA and/or kV adjustment per patient size (includes targeted exams where dose is matched to clinical indication); or iterative reconstruction. COMPARISON: CT CHEST WO 02/08/2022 9:33 AM FINDINGS: Lungs: Mild pulmonary emphysema and scattered air trapping. No airspace consolidation. Motion artifact in the lungs. A few small pulmonary nodules. Follow-up as per institutional protocol. Minimal dependent subsegmental atelectasis. Pleural spaces: No pneumothorax. No pleural effusion. Heart: Cardiac size upper limits of normal. Trace pericardial fluid appears likely physiologic. Coronary arteries: Coronary artery calcification typical for age. Lymph nodes: No enlarged lymph nodes. Vasculature: . Infrarenal aortic aneurysm partially assessed. Ascending aorta mildly prominent on noncontrast imaging at 42 mm. Tortuous descending aorta. Left nephrolithiasis versus distal renal artery atherosclerosis Bones/joints: The bones are demineralized. Degenerative changes in the spine. Motion artifact at ribs with no acute fracture identified. Soft tissues: No suspicious lesions. IMPRESSION: 1. No acute findings on noncontrast imaging. 2. Incidental findings as described. Dictated and Authenticated by: Zoraida Amezcua MD. Ordering:SHERITA Wood MD
[2023-05-12 23:10] LABS: BE (Venous) 13 mmol/L (-2-3); HCO3 (Venous) 38 mmol/L (23-28); O2 Sat (Venous) 94 %; TCO2 (Venous) 35 mmol/L (24-29); pH (Venous) 7.36 (7.31-7.41); pO2 (Venous) 68 mmHg
[2023-05-12 23:13] LABS: pCO2 (Venous) 68 mmHg (41-51)
[2023-05-13] VITALS (54 sets, daily range): BP systolic 111–156; BP diastolic 57–117; PULSE 45–66; RESP 1–21; TEMP 36.5–36.9; O2SAT 86–96
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
[2023-05-13] MEDS: MORPHine 4 MG/ML SYR IVP (04:43)
[2023-05-13 07:32] LABS: HCT 36.4 % (36.0-46.0); HGB 11.5 g/dL (11.2-15.7); MCHC 31.6 % (32.0-36.0); MCV 98 fL (80-95); MPV 10.4 fL (8.0-11.0); Platelet Count 198 10^3/uL (130-400); RBC 3.71 10^6/uL (3.93-5.22); RDW 13.3 % (11.7-14.6); RDW-SD 47.7 fL
[2023-05-13] MEDS: Acetaminophen 325 MG TAB PO (07:59)
[2023-05-13] MEDS: amLODIPine 5 MG TAB PO (08:00)
[2023-05-13] MEDS: Aspirin E.C. 81 MG TABEC PO (08:00)
[2023-05-13 08:01] LABS: ALT 14 U/L (14-59); AST 24 U/L (15-37); Albumin 3.3 g/dL (3.4-5.0); Alkaline Phosphatase 92 U/L (46-116); Anion Gap 2.5 mmol/L (3-11); BUN 15 mg/dL (7-18); Bilirubin, Total 0.8 mg/dL (0.2-1.0); CO2 35.5 mmol/L (21.0-32.0); CREATININE 0.8 mg/dL (0.55-1.02); Calcium 8.5 mg/dL (8.5-10.1); Chloride 102 mmol/L (98-107); Estimated GFR 73.98 (mL/min/1.73m2); Glucose 97 mg/dL (74-106); Magnesium 1.8 mg/dL (1.8-2.4); Potassium 3.3 mmol/L (3.5-5.1); Sodium 140 mmol/L (136-145); Total Protein 6.6 g/dL (6.4-8.2)
[2023-05-13] MEDS: Heparin 5,000 UNITS/ML VIAL 5000 UNITS SC ×3 (08:01→20:15)
[2023-05-13] MEDS: Cholecalciferol (Vitamin D3) 1,000 UNIT TAB 2000 UNITS PO (08:01)
[2023-05-13] MEDS: Pantoprazole 40 MG TABCR PO (08:02)
[2023-05-13] MEDS: Pramipexole 0.5 MG TAB PO ×2 (08:02→20:14)
[2023-05-13] MEDS: Sertraline 100 MG TAB 150 MG PO (08:02)
[2023-05-13] MEDS: Mirabegron 25 MG TABCR PO (08:02)
[2023-05-13] MEDS: Normal Saline Flush 10 ML SYR IVP ×3 (08:03→18:19)
[2023-05-13] MEDS: Furosemide 20 MG TAB PO (08:03)
[2023-05-13] MEDS: Budesonide/Formoterol 160/4.5 6 GM 60 PUFF INH IH ×2 (08:32→20:30)
--- NOTE | 2023-05-13 09:02 | RESPIRATORY ---
RT spoke with patient concerning the use of home oxygen, patient stated she uses 2L @ home and the DME is [facility].
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
[2023-05-13] MEDS: Albuterol/Ipratropium 3 ML UPD VIAL UPD ×3 (09:34→23:27)
[2023-05-13] MEDS: Isosorbide Mononitrate 30 MG TABCR 60 MG PO (10:03)
[2023-05-13] MEDS: Normal Saline 1,000 ML 80 ML IV (10:04)
--- NOTE | 2023-05-13 11:45 | IN_ITS ---
PT Notes Visit Reasons: Hypoxemia with COPD, Left Chest Contusion... Physical Therapy Inpatient Initial Evaluation Date: 05/13/23 Referring Doctor: Jose Lott MD PT Orders: PT CONSULT: Limited Ability Precautions: Fall. Standard. Patient Profile/Admitting Diagnosis: Audrey is a 82 yo female that presented to the ER on 05/12/23 following a fall. She was attempting to open up a dog gate when she fell landing on the gate with her left ribs.?She also has COPD and low SaO2 on 2L O2 via NC. Appears to have a number of falls recently with multiple bruises in different stages. PMHX: See EMR Social History/Home Situation: Lives alone with family nearby. She may have 4 steps to enter and a flight of stairs in home, but unclear. Sounds like not using assistive device at home. Equipment Owned/DME: Walker, cane Subjective: Cleared by nursing to see patient and patient is agreeable to PT. Patient resting in bed at time of consult and connected to IV with 2.5L O2 via NC. Objective: General Observation: Pain on left side, mildly hard of hearing, slow response time Mental Status: A&O x2 Pain: Unable to provide rating, but indicates pain left trunk ROM: Right Upper Extremity: Shoulder Flexion WFL. Shoulder abduction WFL. Elbow flexion WFL. Wrist flexion WFL. Opening and closing of hand WFL. Left Upper Extremity: Shoulder Flexion WFL. Shoulder abduction WFL. Elbow flexion WFL. Wrist flexion WFL. Opening and closing of hand WFL. Right Lower Extremity: Hip flexion WFL. Hip abduction WFL. Knee flexion WFL. Ankle dorsiflexion WFL. Ankle plantarflexion WFL. Left Lower Extremity: Hip flexion WFL. Hip abduction WFL. Knee flexion WFL. Ankle dorsiflexion WFL. Ankle plantarflexion WFL. Strength: Right Upper Extremity: Shoulder flexors 4/5. Shoulder abductors 4/5. Elbow flexors 4+/5. Elbow extensors 4/5. Sporting Goods Salesperson strong. Left Upper Extremity: Shoulder flexors 4/5. Shoulder abductors 4/5. Elbow flexors 4+/5. Elbow extensors 4/5. Sporting Goods Salesperson strong. Right Lower Extremity: Hip flexors 4/5. Knee flexors 5/5. Knee extensors 5/5. Ankle dorsiflexors 5/5. Ankle plantarflexors 4/5. Left Lower Extremity: Hip flexors 4/5. Knee flexors 5/5. Knee extensors 5/5. Ankle dorsiflexors 5/5. Ankle plantarflexors 4/5. Sensation: Intact as to pain and pressure on bilateral lower extremities. Bed Mobility/Transfers: Rolling: Independent, but with pain Supine to sit: Independent Sit to supine: Mod assist secondary to pain Sit to stand: Supervision Stand to sit: Supervision Gait: Ambulated 15ft in room with CGA using FWW x2 Stairs: Not assessed Balance: Static Sitting: Normal Dynamic Sitting: Good Static Standing: Good Dynamic Standing: Fair Special Tests: Mobility Limitations Standardized Measure [facility] AM-PAC 6 clicks Basic Mobility Inpatient Short Form: Raw Score: 17 CMS Score: 51% Informed Consent/Education: Patient instructed in purpose of PT consult and plan of care. Assessment: Patient was able to get from supine in bed to standing independently with supervision. She does report pain in left trunk but is unable to provide pain rating at this time. Patient was able to ambulate with contact-guard assist 15 feet to the bathroom and toilet independently. Unclear how many stairs she has at home. She did need assist getting back into bed secondary to left trunk pain. Chart review indicates she has been experiencing a number of falls which is of concern for general home safety. May need increased assistance at home in order to safely return there at this time. Patient presents with clinical signs and symptoms consistent with current/admitting diagnoses that have resulted to mobility limitations, gait instability, generalized weakness, and impairment of motor control as demonstrated by the following impairment level findings: 1. Decreased strength to upper extremity major muscle groups 2. Impaired standing balance 3. Impaired activity tolerance Impairments are contributing to the following functional limitations: 1. Increased need with bed mobility skills 2. Inability to safely ambulate without assistive device and physical assistance 3. Increase completion time for mobility ADL performance 4. Increased fall risk 5. Inability to negotiate steps alone safely Patient is assessed as a moderate complexity based on the following: History: 82year old female with impairment level findings, functional limitations, and past medical history as indicated above Examination: Demonstrable impairment in strength, balance, and mobility level with underlying impairments and functional limitations as documented above Presentation: Evolving Decision Making: Moderate complexity Goals: Goals x1 week 1. Supine-Sit: independent 2. Sit-Supine: independent 3. Sit-Stand: independent 4. Stand-Sit: independent 5. Bed-Chair: independent 6. Chair-Bed: independent 7. Independent gait on level surface with use of least restrictive device for at least 300 feet without report of pain nor dyspnea 8. Good static and dynamic standing balance/tolerance 9. Independent with home exercise program 10. Independent stair negotiation while holding onto bilateral rails for at least 10 steps without report of pain nor dyspnea Plan of Care/Treatment Plan: 1-2x/day, 7 days/week x1 week. Plan of care has been reviewed with the FINANCIAL SALES CONSULTANT providing the service under Physical Therapy direction. Initiate Physical Therapy intervention for strengthening, bed mobility, transfers, gait, stairs, balance training, and use of assistive device. Discharge Plan DISCHARGE RECOMMENDATIONS: SNF for continued rehabilitation, but will monitor closely for progress. If did return home recommend caregiver and home health as fall frequency is of concern. TREATMENT CODE/TIME: 11:07-11:39 (32 minutes), [id number] Thank you for the opportunity to participate in the care of this patient. Siria Sher, PT, DPT, OCS [facility] [place], [place]
[2023-05-13] MEDS: Ketorolac 15 MG/ML VIAL IVP ×3 (13:03→23:18)
[2023-05-13] MEDS: ACETAMINOPHEN 1,000 MG/100 ML BTL 400 MG IVPB ×2 (13:03→23:24)
[2023-05-13] MEDS: Lidocaine 5% Patch 1 PATCH TP (13:04)
[2023-05-13] MEDS: MORPHine 4 MG/ML SYR 2 MG IVP (20:13)
[2023-05-13] MEDS: Nicotine 21 MG/24 HR PATCH TD (20:33)
[2023-05-13] MEDS: traMADol 50 MG TAB PO (23:17)
[2023-05-13] MEDS: Gabapentin 300 MG CAP 600 MG PO (23:18)
[2023-05-13] MEDS: Atorvastatin 40 MG TAB PO (23:18)
[2023-05-14] MEDS: ACETAMINOPHEN 1,000 MG/100 ML BTL 400 MG IVPB (04:30)
[2023-05-14] MEDS: Heparin 5,000 UNITS/ML VIAL 5000 UNITS SC (04:33)
[2023-05-14] MEDS: Ketorolac 15 MG/ML VIAL IVP (04:34)
[2023-05-14] MEDS: MORPHine 4 MG/ML SYR 2 MG IVP (04:35)
[2023-05-14 06:00] VITALS: BP 142/63; PULSE 56; RESP 20; TEMP 36.8; O2SAT 90
[2023-05-14] MEDS: Normal Saline 1,000 ML 50 ML IV (06:22)
[2023-05-14] MEDS: Lidocaine 5% Patch 1 PATCH TP (08:18)
[2023-05-14] MEDS: Metoprolol CR 25 MG TABCR PO (08:20)
[2023-05-14] MEDS: Sertraline 100 MG TAB 150 MG PO (08:20)
[2023-05-14] MEDS: Mirabegron 25 MG TABCR PO (08:20)
[2023-05-14] MEDS: Pramipexole 0.5 MG TAB PO (08:20)
[2023-05-14] MEDS: Cholecalciferol (Vitamin D3) 1,000 UNIT TAB 2000 UNITS PO (08:20)
[2023-05-14] MEDS: Furosemide 20 MG TAB PO (08:20)
[2023-05-14] MEDS: Aspirin E.C. 81 MG TABEC PO (08:20)
[2023-05-14] MEDS: Isosorbide Mononitrate 30 MG TABCR 60 MG PO (08:20)
[2023-05-14] MEDS: Pantoprazole 40 MG TABCR PO (08:20)
[2023-05-14] MEDS: amLODIPine 5 MG TAB PO (08:21)
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
[2023-05-14] MEDS: Budesonide/Formoterol 160/4.5 6 GM 60 PUFF INH IH (09:34)
[2023-05-14 11:00] VITALS: BP 122/53; PULSE 55; RESP 18; TEMP 36.7; O2SAT 91
--- NOTE | 2023-05-14 11:01 | PT.INTREAT ---
PT Notes Visit Reasons: Hypoxemia with COPD, Left Chest Contusion... Date: 05/14/2023 Precautions: ?Fall. Standard. Subjective: Pt in bed when approached for therapy this morning, agreed to participating with therapy. Objective: General Observation: Supine in bed.? Mental Status: Mentally alert and responsive to instructions Pain: Generalized due to trauma from fall Vital Signs: Closely monitored by nursing staff Bed Mobility/Transfers: Rolling Supervision Supine to sit Supervision Sit to stand SBA with FWW Stand to sit SBA Bed to chair SBA with FWW Toilet transfers stand pivot transfers supervision Transfer going back in bed supervision Gait: 20'x2 inside pt room to go to the toilet THERA EX: Chest expansion exercises with DBE x 5 Seated marches x 10 Chest expansion exercises with DBE x 5 LAQ x 10 Chest expansion exercises with DBE x 5 Hip adductor squeeze x 10 Ankle pumps x 10 ASSESSMENT: Pt required verbal and tactile cue for body positioning and timing during sit to stands and gait training, pt still having SOB while alleviated after taking DBE during seated rest breaks. PLAN: Continue with balance training, global strengthening and general conditioning for improved safety, mobility and activity tolerance. TREATMENT CODE/TIME: 39385 x1 10minutes? [id number] x2 15mins beginning at 9:00-9:25 AM.
[2023-05-14 11:08] VITALS: RESP 8
[2023-05-14] MEDS: Acetaminophen 325 MG TAB 650 MG PO (11:08)
[2023-05-14] MEDS: Albuterol/Ipratropium 3 ML UPD VIAL UPD (11:08)
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
--- NOTE | 2023-05-17 15:50 | INDS_ITS ---
Date of service: 05/15/23 PT Notes Visit Reasons: Hypoxemia with COPD, Left Chest Contusion... Physical Therapy Inpatient Discharge Summary Date: 05/14/23 Dates of service: 05/13/2023 through 05/14/2023 This is a clinical summary of care provided for the duration of dates listed above. No charge was made in the completion of this documentation. Referring Doctor: Jose Lott MD PT Orders: PT CONSULT: Limited Ability Precautions: Fall. Standard. Patient Profile/Admitting Diagnosis:?Audrey is a 82 yo female that presented to the ER on 05/12/23 following a fall. She was attempting to open up a dog gate when she fell landing on the gate with her left ribs.?She also has COPD and low SaO2 on 2L O2 via NC.? Appears to have a number of falls recently with multiple bruises in different stages. PMHX: See EMR Social History/Home Situation: Lives alone with family nearby. She may have 4 steps to enter and a flight of stairs in home, but unclear. Sounds like not using assistive device at home. Equipment Owned/DME: Walker, cane Subjective:? NT. See most recent [employer] notes. Objective:? General Observation: NT. See most recent [employer] notes. Mental Status: NT. See most recent [employer] notes. Pain: NT. See most recent [employer] notes. ROM: Right Upper Extremity: Shoulder Flexion WFL. Shoulder abduction WFL. Elbow flexion WFL. Wrist flexion WFL. Opening and closing of hand WFL. Left Upper Extremity: Shoulder Flexion WFL. Shoulder abduction WFL. Elbow flexion WFL. Wrist flexion WFL. Opening and closing of hand WFL. Right Lower Extremity: Hip flexion WFL. Hip abduction WFL. Knee flexion WFL. Ankle dorsiflexion WFL. Ankle plantarflexion WFL. Left Lower Extremity: Hip flexion WFL. Hip abduction WFL. Knee flexion WFL. Ankle dorsiflexion WFL. Ankle plantarflexion WFL. Strength: Right Upper Extremity: Shoulder flexors 4/5. Shoulder abductors 4/5. Elbow flexors 4+/5. Elbow extensors 4/5. Photoengraving Machine Operator/Tender strong. Left Upper Extremity: Shoulder flexors 4/5. Shoulder abductors 4/5. Elbow flexors 4+/5. Elbow extensors 4/5. Photoengraving Machine Operator/Tender strong. Right Lower Extremity: Hip flexors 4/5. Knee flexors 5/5. Knee extensors 5/5. Ankle dorsiflexors 5/5. Ankle plantarflexors 4/5. Left Lower Extremity: Hip flexors 4/5. Knee flexors 5/5. Knee extensors 5/5. Ankle dorsiflexors 5/5. Ankle plantarflexors 4/5. Sensation:?Intact as to pain and pressure on bilateral lower extremities. Bed Mobility/Transfers: ?Rolling Supervision ?Supine to sit Supervision ?Sit to stand SBA with FWW ?Stand to sit SBA ?Bed to chair SBA with FWW ?Toilet transfers stand pivot transfers supervision ?Transfer going back in bed supervision ?Gait: ?20'x2 inside pt room to go to the toilet Balance:? Static Sitting: Normal Dynamic Sitting: Good Static Standing: Good Dynamic Standing: Fair Assessment: Patient presents with clinical signs and symptoms consistent with current/admitting diagnoses that have resulted to mobility limitations, gait instability, generalized weakness, and impairment of motor control as demonstrated by the following impairment level findings: 1. Decreased strength to upper extremity major muscle groups 2. Impaired standing balance 3. Impaired activity tolerance Impairments are contributing to the following functional limitations: 1. Increased need with bed mobility skills 2. Inability to safely ambulate without assistive device and physical assistance 3. Increase completion time for mobility ADL performance 4. Increased fall risk 5. Inability to negotiate steps alone safely Goals: Goals x1 week 1. Supine-Sit: independent NOT MET 2. Sit-Supine: independent NOT MET 3. Sit-Stand: independent NOT MET 4. Stand-Sit: independent NOT MET 5. Bed-Chair: independent NOT MET 6. Chair-Bed: independent NOT MET 7. Independent gait on level surface with use of least restrictive device for at least 300 feet without report of pain nor dyspnea NOT MET 8. Good static and dynamic standing balance/tolerance NOT MET 9. Independent with home exercise program NOT MET 10. Independent stair negotiation while holding onto bilateral rails for at leas t 10 steps without report of pain nor dyspnea NOT MET Discharge Plan DISCHARGE RECOMMENDATIONS: SNF for continued rehabilitation, but will monitor closely for progress. If did return home recommend caregiver and home health as fall frequency is of concern. TREATMENT CODE/TIME: AK Thank you for the opportunity to participate in the care of this patient. Madalyn Lucia PT, DPT, CLT [facility], [place]
== END 2023-05-14 13:00 | disposition home or self-care (01) ==
LOC: ER 05-13 02:28 → MS 05-13 03:45
PROVIDERS: Admitting Provider Family Medicine; Emergency Provider Emergency Medicine Emergency Medical Services; PCP Family Medicine; Visit Provider Family Medicine
DX: S20.212A Contusion of left front wall of thorax, initial encounter (principal); G89.11 Acute pain due to trauma; R07.89 Other chest pain; J44.9 Chronic obstructive pulmonary disease, unspecified; R91.8 Other nonspecific abnormal finding of lung field; R09.02 Hypoxemia; I77.810 Thoracic aortic ectasia; Z79.899 Other long term (current) drug therapy; Z99.81 Dependence on supplemental oxygen; W19.XXXA Unspecified fall, initial encounter; S51.812A Laceration without foreign body of left forearm, initial encounter; F17.210 Nicotine dependence, cigarettes, uncomplicated; I25.10 Atherosclerotic heart disease of native coronary artery without angina pectoris; I25.5 Ischemic cardiomyopathy; R29.6 Repeated falls; Z66 Do not resuscitate; S00.83XA Contusion of other part of head, initial encounter
CPT/HCPCS: 36415; 71250; 80053; 82805; 85027; 93005; 94640; 96365; 96366; 96374; 96375; 96376; 97116; 97162; 97530; 99285; 83735; 85025; 85610; 93010; 94664; 94667; 94668; 94760; 99223; 99238; J0131; J1644; J1885; J2270; J7620

== ENCOUNTER 2023-05-19 12:51 | Inpatient (IN) | payer MEDICARE, SELFPAY ==
[2023-05-19] VITALS (30 sets, daily range): BP systolic 123–152; BP diastolic 44–104; PULSE 48–60; RESP 15–24; TEMP 36.7–37.1; O2SAT 89–98
--- NOTE | 2023-05-19 12:45 | RT.EKG_ITS ---
APPROVED REPORT Exam: Resting ECG Reason for Exam: weakness Patient Location: E HR:53 bpm ECG Measurements Heart Rate 53 AXIS ID 201 P 43 QRSd 98 QRS 56 QT 481 T 58 QTc 451 Conclusion Sinus bradycardia...rate< 60 Consider left ventricular hypertrophy...(S V1+R V5/V6) >3.25mV
--- NOTE | 2023-05-19 13:15 | NUR.NOTE ---
Nursing Note: son reports mother been sleeping a lot more lately when son went to check on mother this morning he could not wake her up he called EMS for help
--- NOTE | 2023-05-19 13:45 | DI.CT_ITS ---
Exam(s) CT CHEST/ABD/PEL W EXAM: CT CHEST/ABD/PEL W CLINICAL HISTORY: fall, trauma left lateral chest and flank TECHNIQUE: Imaging Protocol: Axial computed tomography images with coronal and sagittal reformatted images were created and reviewed CONTRAST MATERIAL: Intravenous: Omnipaque 350 contrast volume:80 mL Oral: No COMPARISON: CT CT ABDOMEN WO/W from 04/04/[address] CHEST WO from 05/12/2023 FINDINGS: The examination is limited due to patient motion artifact. CHEST: Tracheobronchial tree: There is some fluid in the trachea which may represent aspiration. Pulmonary parenchyma: There is scarring seen in the left lung apex. Stable pulmonary nodules. There is scarring and/or atelectasis seen in the lower lobes, right middle lobe and left lingula. Visualized thyroid gland: Unremarkable. Mediastinum and Gin: No dominant adenopathy or fluid collection. The esophagus is unremarkable. Pleura: No effusion or pneumothorax. Heart: The heart is not dilated. Dense coronary artery calcification is present. No pericardial effu joellen. Pulmonary arteries: The segmental and subsegmental pulmonary arteries are inadequately opacified. No large central pulmonary embolus is seen. Aorta: The ascending thoracic aorta measures 4.3 x 4.1 cm. There is no evidence of dissection. Athe rosclerosis is present. Lymph nodes: Within normal limits. Soft tissues: There is edema in the soft tissues in the left lateral chest wall. Bones:Within normal limits for the patient's age. There is an acute mildly displaced fracture involv ing the lateral aspect of the left 9th rib. ABDOMEN: Liver: Normal density. No measurable mass. Portal, Superior Mesenteric, and Splenic Veins: Unremarkable. Gallbladder and Biliary Tract: No radiodense calculus or dilation. Pancreas: Normal density, no abnormal calcifications or inflammatory process. Spleen: Normal. Adrenals: No masses seen. Kidneys: Normal size, contour and axis. Left nephrolithiasis. No hydronephrosis. There are bilatera l renal cysts. No follow-up is recommended. Abdominal Aorta: There is a 3.6 x 3.5 cm infrarenal abdominal aortic aneurysm. Atherosclerosis. Bowel: No obstruction or bowel wall thickening. There is a moderate amount of stool in the colon whic h may represent constipation. There is no evidence of appendicitis. Peritoneal Cavity: No ascites, collection or mesenteric inflammatory response. No free air. Lymph Nodes: Within normal limits. Bones: Within normal limits for the patient's age. No acute fractures or subluxations. Soft Tissues: There is soft tissue swelling along the left abdominal wall consistent with contusions. PELVIS: Bladder: Symmetric distention, no gross wall thickening. Reproductive Organs: Status post hysterectomy. Lymph Nodes: Within normal limits. Bones: Within normal limits. IMPRESSION: 1. Mildly displaced fracture involving the lateral aspect of the left 9th rib. 2. Soft tissue contusions and subcutaneous edema overlying the left lower chest wall and abdominal wa ll. 3. Stable chronic findings in the chest abdomen and pelvis. 4. No evidence of acute abdominal or pelvic organ injury. 5. Findings were discussed with Dr. Yeager at 5:23 p.m. on 05/19/2023. RADIATION DOSE DELIVERED: 847.39mGy.cm Total DLP DATA REPOSITORY: All CT scans at this facility are submitted to the National Radiology Data Registry (NRDR) Dose Index Registry (DIR) with the [employer] ([employer]). RADIATION OPTIMIZATION: All CT scans at this facility use at least one of these dose optimization te chniques: automated exposure control; mA and/or kV adjustment per patient size (includes targeted exa ms where dose is matched to clinical indication); or iterative reconstruction.
--- NOTE | 2023-05-19 13:45 | DI.CT_ITS ---
Exam(s) CT HEAD CERVICAL SPINE WO EXAM: CT HEAD CERVICAL SPINE WO CLINICAL HISTORY: fall, trauma. TECHNIQUE: Imaging Protocol: Axial computed tomography images with coronal and sagittal reformatted images were created and reviewed COMPARISON: CT CT HEAD WO from 08/25/2022 FINDINGS: The examination is limited due to patient motion artifact. CT Head: Ventricles and Extra axial spaces: Normal in size and morphology for the patient's age. Hemorrhage: None. Cerebral parenchyma: There is no evidence of an acute territorial infarct. There is small vessel isc hemic disease present. Midline shift: None. Brainstem/Cerebellum: Normal. Calvarium: Normal. Visualized Paranasal sinuses/Mastoids: Clear. Soft Tissues: Unremarkable. CT Cervical Spine: Bones: No acute fracture or subluxation. Moderately severe degenerative changes are present throughou t the cervical spine. Soft Tissues: Unremarkable. Lung Apices: Clear. IMPRESSION: 1. Examination is compromised secondary to patient motion artifact. 2. No acute intracranial process. 3. No acute fracture or subluxation in the cervical spine. RADIATION DOSE DELIVERED: 1,537.33mGy.cm Total DLP DATA REPOSITORY: All CT scans at this facility are submitted to the National Radiology Data Registry (NRDR) Dose Index Registry (DIR) with the [employer] (ACR). RADIATION OPTIMIZATION: All CT scans at this facility use at least one of these dose optimization te chniques: automated exposure control; mA and/or kV adjustment per patient size (includes targeted exa ms where dose is matched to clinical indication); or iterative reconstruction.
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
[2023-05-19 14:45] LABS: Source Nasal/Nares
--- NOTE | 2023-05-19 15:07 | W.ANESNERVE ---
Nerve Block Single Injection Procedure Date and Time Date Performed: 05/19/23 Procedure Start: 15:18 Location Where Procedure Performed Procedure Location: Emergency Department Reason Performed: Acute Pain Management Pain Diagnosis: Rib Pain (left) Requesting Provider: Trey Rivers Timeout Performed Timeout Performed: Yes Monitoring Used ECG, Blood Pressure and SpO2 Sterility Sterility: Hand Hygiene, Surgical Cap, Surgical Mask, Sterile Gloves and Chlorhexidine Sedation Given During Procedure Sedation Given (Indicate Dose Given): No Sedation given Patient Mental Status Patient Mental Status: Awake Nerve Block 1st Nerve Block: Laterality: Left Block Type: Erector Spinae (Upper) (T6) Ultrasound Image Saved?: Yes Needle / Catheter Used: 100mm SonoPlex II Local Anesthetic Bolus (Indicate Dose Given): Lidocaine used for local infiltration of skin, Injected in 3-5ml increments after negative blood aspiration and Bupivacaine 0.25% Dose:: 30 ml Additives (Indicate Dose Given): None Ultrasound: Sterile probe cover and gel used Nerve Stimulator: Not Used Paresthesia: None Procedure Tolerated: No Complications and Patient tolerated well Procedure Outcome: Successful Procedure Comment: Pain level improved when evaluated ~30 min post procedure. Able to take a deep breath without grimace and patient states some improvement in comfort. Performed By: Juliann Sauer
[2023-05-19 15:17] LABS: COVID-19 PCR Negative (Negative)
[2023-05-19 15:25] LABS: Bilirubin Small (Negative); Blood Negative (Negative); Clarity Clear (Clear); Glucose Negative (Negative); Ketones Negative (Negative); Leukocyte Esterase Negative (Negative); Nitrite Negative (Negative); Specific Gravity >= 1.030 (1.005-1.025); Urobilinogen 0.2 mg/dL (Up to 0.2); pH 5.5 (5-8)
[2023-05-19] MEDS: Bupivacaine 0.25% Pres-Free 30 ML VIAL (15:29)
[2023-05-19 15:34] LABS: Bacteria Moderate HPF (Negative); C & S Indicated? No/Sq. Contamination; Casts Negative LPF (Negative); Crystals Negative HPF (Negative); Epithelial Cells Many HPF (Negative); Mucus Trace (Negative); RBC 0-2 HPF (0-2)
[2023-05-19 15:47] LABS: Abs Immature Grans 0.03 10^3/uL (0.0-0.06); Absolute Basophil Count 0.05 10^3/uL (0.0-0.2); Absolute Eosinophil Count 0.46 10^3/uL (0.0-0.7); Absolute Lymphocyte Count 1.42 10^3/uL (1.2-3.4); Absolute Monocyte Count 0.82 10^3/uL (0.1-0.8); Absolute Neutrophil Count 4.56 10^3/uL (1.2-6.7); Basophils % 0.7; Eosinophils % 6.3; HCT 40.1 % (36.0-46.0); HGB 12.5 g/dL (11.2-15.7); Immature Grans % 0.4; Lymphocytes % 19.3; MCH 30.6 pg (27.0-33.0); MCHC 31.2 % (32.0-36.0); MCV 98 fL (80-95); MPV 10.1 fL (8.0-11.0); Monocytes % 11.2; Neutrophils % 62.1; Platelet Count 215 10^3/uL (130-400); RBC 4.08 10^6/uL (3.93-5.22); RDW 13.6 % (11.7-14.6); RDW-SD 49.5 fL; WBC 7.34 10^3/uL (4.4-10.8)
[2023-05-19 16:06] LABS: ALT 33 U/L (14-59); AST 46 U/L (15-37); Albumin 3.2 g/dL (3.4-5.0); Alkaline Phosphatase 92 U/L (46-116); Anion Gap 0.4 mmol/L (3-11); BUN 18 mg/dL (7-18); CO2 41.6 mmol/L (21.0-32.0); CREATININE 0.9 mg/dL (0.55-1.02); Calcium 8.5 mg/dL (8.5-10.1); Chloride 105 mmol/L (98-107); Estimated GFR 64.23 (mL/min/1.73m2); Glucose 96 mg/dL (74-106); Sodium 147 mmol/L (136-145); Total Protein 6.8 g/dL (6.4-8.2)
--- NOTE | 2023-05-19 16:06 | W.EDPROG ---
Date of service: 05/19/23 Time of Service: 17:54 Medical Decision Making This patient was signed out to me. Please see previous notes for H&P and initial eval. In brief, 82 year old female presenting with generalized weakness and frequent falls. Labs below, CBC with no anemia, CMP with mild hypokalemia to 3.0 (oral replacement ordered). CT head and c-spine as below, no acute intracranial process. CT chest/abd/pelvis with left sided contusions and left 9th rib fx, no evidence of intrathoracic/abdominal organ injury. Given worsening pain, generalized weakness/malaise, hypokalemia of unclear etiology, advanced age, warrants admission for further workup and management. Accepted to medicine service and awaiting transfer to the floor. Imaging Data Radiologic Study: Imaging: CT Scan (head and c spine) Radiologist's impression: IMPRESSION: 1. Examination is compromised secondary to patient motion artifact. 2. No acute intracranial process.? 3. No acute fracture or subluxation in the cervical spine. Radiologic Study #2: Imaging: CT Scan (CAP) Radiologist's impression: IMPRESSION: 1. Mildly displaced fracture involving the lateral aspect of the left 9th rib. 2. Soft tissue contusions and subcutaneous edema overlying the left lower chest wall and abdominal wall.? 3. Stable chronic findings in the chest abdomen and pelvis. 4. No evidence of acute abdominal or pelvic organ injury. 5. Findings were discussed with Dr. Yeager at 5:23 p.m. on 05/19/2023. Lab Data Lab results narrative: Laboratory Tests Range/Units 05/19/23 05/19/23 05/19/23 14:14 15:12 15:44 WBC (4.4-10.8) 10^3/uL RBC (3.93-5.22) 10^6/uL Hgb (11.2-15.7) g/dL Hct (36.0-46.0) % MCV (80-95) fL MCH (27.0-33.0) pg MCHC (32.0-36.0) % RDW (11.7-14.6) % Plt Count (130-400) 10^3/uL MPV (8.0-11.0) fL Immature Gran % Neutrophils % Lymphocytes % Monocytes % Eosinophils % Basophils % Nucleated RBC % (0.0-0.3) % Absolute Neutrophils (1.2-6.7) 10^3/uL Absolute Lymphocytes (1.2-3.4) 10^3/uL Absolute Monocytes (0.1-0.8) 10^3/uL Absolute Eosinophils (0.0-0.7) 10^3/uL Absolute Basophils (0.0-0.2) 10^3/uL Sodium (136-145) mmol/L 147 H Potassium (3.5-5.1) mmol/L 3.0 L Chloride (98-107) mmol/L 105 Carbon Dioxide (21.0-32.0) mmol/L 41.6 H Anion Gap (3-11) mmol/L 0.4 L BUN (7-18) mg/dL 18 Creatinine (0.55-1.02) mg/dL 0.9 Est GFR (CKD-EPI 2020) (mL/min/1.73m2) 64.23 Glucose (74-106) mg/dL 96 Calcium (8.5-10.1) mg/dL 8.5 Total Bilirubin (0.2-1.0) mg/dL 1.0 AST (15-37) U/L 46 H ALT (14-59) U/L 33 Alkaline Phosphatase (46-116) U/L 92 Total Protein (6.4-8.2) g/dL 6.8 Albumin (3.4-5.0) g/dL 3.2 L Urine Color (Yellow) Yellow Urine Clarity (Clear) Clear Urine pH (5-8) 5.5 Ur Specific [place] (1.005-1.025) >= 1.030 H Urine Protein (Negative) mg/dL 30 H Urine Ketones (Negative) mg/dL Negative Urine Blood (Negative) Negative Urine Nitrite (Negative) Negative Urine Bilirubin (Negative) Small H Urine Urobilinogen (Up to 0.2) mg/dL 0.2 Ur Leukocyte Esterase (Negative) Negative Urine RBC (0-2) HPF 0-2 Urine WBC (0-5) HPF 3-5 Ur Epithelial Cells (Negative) HPF Many Urine Crystals (Negative) HPF Negative Urine Bacteria (Negative) HPF Moderate Urine Casts (Negative) LPF Negative Urine Mucus (Negative) Trace Ur Culture Indicated? No/Sq. Contamination Urine Glucose (Negative) mg/dL Negative COVID-19 Source Nasal/Nares SARS-CoV-2 (PCR) (Negative) Negative Range/Units 05/19/23 15:44 WBC (4.4-10.8) 10^3/uL 7.34 RBC (3.93-5.22) 10^6/uL 4.08 Hgb (11.2-15.7) g/dL 12.5 Hct (36.0-46.0) % 40.1 MCV (80-95) fL 98 H MCH (27.0-33.0) pg 30.6 MCHC (32.0-36.0) % 31.2 L RDW (11.7-14.6) % 13.6 Plt Count (130-400) 10^3/uL 215 MPV (8.0-11.0) fL 10.1 Immature Gran % 0.4 Neutrophils % 62.1 Lymphocytes % 19.3 Monocytes % 11.2 Eosinophils % 6.3 Basophils % 0.7 Nucleated RBC % (0.0-0.3) % 0.0 Absolute Neutrophils (1.2-6.7) 10^3/uL 4.56 Absolute Lymphocytes (1.2-3.4) 10^3/uL 1.42 Absolute Monocytes (0.1-0.8) 10^3/uL 0.82 H Absolute Eosinophils (0.0-0.7) 10^3/uL 0.46 Absolute Basophils (0.0-0.2) 10^3/uL 0.05 Sodium (136-145) mmol/L Potassium (3.5-5.1) mmol/L Chloride (98-107) mmol/L Carbon Dioxide (21.0-32.0) mmol/L Anion Gap (3-11) mmol/L BUN (7-18) mg/dL Creatinine (0.55-1.02) mg/dL Est GFR (CKD-EPI 2020) (mL/min/1.73m2) Glucose (74-106) mg/dL Calcium (8.5-10.1) mg/dL Total Bilirubin (0.2-1.0) mg/dL AST (15-37) U/L ALT (14-59) U/L Alkaline Phosphatase (46-116) U/L Total Protein (6.4-8.2) g/dL Albumin (3.4-5.0) g/dL Urine Color (Yellow) Urine Clarity (Clear) Urine pH (5-8) Ur Specific [place] (1.005-1.025) Urine Protein (Negative) mg/dL Urine Ketones (Negative) mg/dL Urine Blood (Negative) Urine Nitrite (Negative) Urine Bilirubin (Negative) Urine Urobilinogen (Up to 0.2) mg/dL Ur Leukocyte Esterase (Negative) Urine RBC (0-2) HPF Urine WBC (0-5) HPF Ur Epithelial Cells (Negative) HPF Urine Crystals (Negative) HPF Urine Bacteria (Negative) HPF Urine Casts (Negative) LPF Urine Mucus (Negative) Ur Culture Indicated? Urine Glucose (Negative) mg/dL COVID-19 Source SARS-CoV-2 (PCR) (Negative) Sign Out Sign Out Data: Sign Out Comment: Follow-up on labs, CT imaging, likely admission for generalized weakness, fatigue and frequent falls. Last updated by Trey Rivers MD at 05/19/23 16:04 Discharge Plan Discharge Details Chief Complaint: GenMedical Primary Care Provider: Leann Messina V ED Provider: Carolee Yeager Home Meds and New Rx's Prescriptions: No Action metoprolol succinate 50 mg tablet extended release 24 hr 25 mg PO DAILY nicotine (polacrilex) [Nicorette] 4 mg gum 4 mg BC Q2H nicotine 14 mg/24 hr patch 24 hour 1 patch TD DAILY (DME) Oxygen Tank See Rx Instructions .ROUTE .MEDSUPPLY Qty: 1 Rx Instructions: As directed Flaviatishtri Aerosphere 160-9-4.8 mcg/actuation HFA aerosol inhaler 2 inh inhalation BID Qty: 10.7 12RF gabapentin 300 mg capsule 600 mg PO HS tramadol 50 mg tablet 50 mg PO QHS Spiriva Respimat 2.5 mcg/actuation mist 2 puff inhalation DAILY Qty: 4 12RF naloxone 4 mg/actuation spray,non-aerosol 1 spray intranasal Q2-3M PRN (Reason: opioid overdose) Qty: 2 2RF Rx Instructions: spray 1 dose into ONE nostril; alternate nostrils w each dose until help arrives furosemide [Lasix] 20 MG tablet 20 mg PO DAILY aspirin [Adult Low Dose Aspirin] 81 mg tablet,delayed release (DR/EC) 81 mg PO DAILY pantoprazole 40 mg tablet,delayed release (DR/EC) 40 mg PO DAILY pramipexole 0.5 mg tablet 0.5 mg PO BID Myrbetriq 25 mg tablet extended release 24 hr 25 mg PO DAILY Trelegy Ellipta 200-62.5-25 mcg blister with device 1 inh inhalation DAILY amlodipine 5 mg tablet 5 mg PO DAILY (DME[place] [facility] [place] Dose Instructions .ROUTE .MEDSUPPLY Qty: 1 0RF Dose Instruction: As directed Rx Instructions: As directed ketoconazole 2 % Shampoo 1 applic TOPICAL PRN PRN albuterol sulfate [ProAir HFA] 90 mcg/actuation Hfa Aerosol Inhaler 2 puff INHALATION Q6H PRN cholecalciferol (vitamin D3) 2,000 unit Tablet,Chewable 2,000 unit PO DAILY ipratropium-albuterol 0.5 mg-3 mg(2.5 mg base)/3 mL solution for nebulization 3 ml UPD Q6H PRN isosorbide mononitrate 30 MG tablet extended release 24 hr 60 mg PO DAILY Trelegy Ellipta 200-62.5-25 mcg blister with device 1 ea INHALATION DAILY Patient Comments: INHALE CONTENTS OF 1 BLISTER ONCE PER DAY. THIS REPLACES BOTH THE SPIRIVA AND SYMBICORT sertraline 100 mg tablet 150 mg PO DAILY Patient Comments: TAKE 1 TABLET BY MOUTH EVERY DAY IN ADDITION TO 50 MG TABLET FOR A TOTAL DOSE OF 150 MG diazepam 5 mg tablet Patient Comments: TAKE ONE TABLET BY MOUTH 30-60 MIN PRIOR TO MRI; REPEAT ONCE IF NEEDED. DO NOT DRIVE WHILE ON THIS MEDICINE lidocaine 5 % Adhesive Patch,Medicated 1 patch topical DAILY Qty: 10 0RF atorvastatin [Lipitor] 40 MG tablet 40 mg PO HS nitroglycerin [Nitrostat] 0.4 MG tablet, sublingual 0.4 mg Sublingual PRN PRN
[2023-05-19] MEDS: Normal Saline - Diluent 50 ML VIAL IJ (16:47)
[2023-05-19] MEDS: Omnipaque 350 MG/ML 500 ML BTL-Imaging package 80 ML IJ (16:47)
[2023-05-19] MEDS: Normal Saline Flush 10 ML SYR IVP ×2 (16:49→21:28)
[2023-05-19] MEDS: Potassium Chloride 20 MEQ TABCR 40 MEQ PO (17:25)
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
[2023-05-19] MEDS: Gabapentin 300 MG CAP 600 MG PO (21:26)
[2023-05-19] MEDS: traMADol 50 MG TAB PO (21:26)
[2023-05-19] MEDS: Pramipexole 0.5 MG TAB PO (21:27)
[2023-05-19] MEDS: Atorvastatin 40 MG TAB PO (21:27)
[2023-05-19] MEDS: Nicotine 4 MG GUM BC (21:28)
[2023-05-20] VITALS (103 sets, daily range): BP systolic 93–161; BP diastolic 32–91; PULSE 46–60; RESP 4–25; TEMP 36.3–37; O2SAT 84–95
--- NOTE | 2023-05-20 | DI.RAD_ITS ---
Exam(s) XR PORTABLE CHEST AP EXAM: XR PORTABLE CHEST AP CLINICAL HISTORY: worsening hypoxia, rib fracture, ?pneumothorax TECHNIQUE: 2D digital imaging was performed of the chest. One image was obtained. An AP view was ob tained. COMPARISON: CR XR CHEST 2V PA LATERAL from 04/04/[address] CHEST WO from 05/12/[address] CHEST/ABD/PEL W from 05/19/2023 FINDINGS: MEDIASTINUM: Normal. HEART: Normal. PULMONARY VASCULATURE: There is atherosclerosis and tortuosity of the thoracic aorta. LUNGS: Hyperexpansion of the lungs suggesting COPD. Linear opacities are seen in the base of the lef t lung. PLEURAL SPACE: There is some blunting of the left costophrenic angle which may represent a new tiny p leural effusion. No right pleural effusion. No pneumothorax. BONE:Within normal limits for the patient's age. OTHER FINDINGS:Normal. IMPRESSION: Left basilar opacities which may represent atelectasis or pneumonia. DATA REPOSITORY: RADIATION DOSE DELIVERED:
[2023-05-20] MEDS: oxyCODONE 5 MG TAB 2.5 MG PO (02:58)
[2023-05-20] MEDS: Albuterol/Ipratropium 3 ML UPD VIAL UPD (07:42)
[2023-05-20] MEDS: Nicotine 14 MG/24 HR PATCH TD (08:04)
[2023-05-20] MEDS: Lidocaine 5% Patch 1 PATCH TP (08:05)
[2023-05-20] MEDS: Cholecalciferol (Vitamin D3) 1,000 UNIT TAB 2000 UNITS PO (08:10)
[2023-05-20] MEDS: Mirabegron 25 MG TABCR PO (08:10)
[2023-05-20] MEDS: Acetaminophen 325 MG TAB 650 MG PO ×3 (08:10→17:03)
[2023-05-20] MEDS: Sertraline 50 MG TAB 150 MG PO (08:10)
[2023-05-20] MEDS: Isosorbide Mononitrate 30 MG TABCR 60 MG PO (08:10)
[2023-05-20] MEDS: Pramipexole 0.5 MG TAB PO ×2 (08:10→20:07)
[2023-05-20] MEDS: amLODIPine 5 MG TAB PO (08:11)
[2023-05-20] MEDS: Furosemide 20 MG TAB PO (08:11)
[2023-05-20] MEDS: Aspirin E.C. 81 MG TABEC PO (08:11)
[2023-05-20] MEDS: Pantoprazole 40 MG TABCR PO (08:11)
[2023-05-20] MEDS: Metoprolol CR 50 MG TABCR 25 MG PO (08:11)
[2023-05-20] MEDS: Enoxaparin 40 MG/0.4 ML SYR SC (08:11)
--- NOTE | 2023-05-20 08:11 | DI.VRAD_ITS ---
PROCEDURE INFORMATION: Exam: XR Chest Exam date and time: 05/20/2023 7:51 AM Age: 82 years old Clinical indication: Other: Worsening hypoxia TECHNIQUE: Imaging protocol: Radiologic exam of the chest. Views: 1 view. COMPARISON: CT CHEST/ABD/PEL W 05/19/2023 4:45 PM. Chest x-ray dated April 04, 2023 FINDINGS: Lungs: Hyperexpanded lung ponce consistent with COPD. Mild opacities in the left base may represent atelectasis or pneumonia.. Pleural spaces: Possible small left pleural effusion. No pneumothorax. Heart/Mediastinum: Stable cardiac silhouette Bones/joints: Degenerative changes in the glenohumeral joints IMPRESSION: Mild opacities in the left base may represent atelectasis or pneumonia.. Dictated and Authenticated by: Pascual Stoner MD. Ordering:ANA Storm MD
[2023-05-20] MEDS: Normal Saline Flush 10 ML SYR IVP ×4 (08:12→19:59)
[2023-05-20] MEDS: Budesonide/Formoterol 160/4.5 6 GM 60 PUFF INH IH ×2 (08:13→19:14)
[2023-05-20] MEDS: Tiotropium Bromide-Respimat 10 PUFF INH 2 PUFF IH (08:14)
[2023-05-20 08:25] LABS: Abs Immature Grans 0.02 10^3/uL (0.0-0.06); Absolute Basophil Count 0.06 10^3/uL (0.0-0.2); Absolute Eosinophil Count 0.41 10^3/uL (0.0-0.7); Absolute Lymphocyte Count 1.42 10^3/uL (1.2-3.4); Absolute Monocyte Count 0.84 10^3/uL (0.1-0.8); Absolute Neutrophil Count 5.18 10^3/uL (1.2-6.7); Basophils % 0.8; Eosinophils % 5.2; HCT 38.9 % (36.0-46.0); HGB 12.1 g/dL (11.2-15.7); Immature Grans % 0.3; Lymphocytes % 17.9; MCH 30.5 pg (27.0-33.0); MCHC 31.1 % (32.0-36.0); MCV 98 fL (80-95); MPV 10.6 fL (8.0-11.0); Monocytes % 10.6; Neutrophils % 65.2; Platelet Count 218 10^3/uL (130-400); RBC 3.97 10^6/uL (3.93-5.22); RDW 13.5 % (11.7-14.6); RDW-SD 48.3 fL; WBC 7.93 10^3/uL (4.4-10.8)
[2023-05-20 08:45] LABS: Anion Gap 2.9 mmol/L (3-11); BUN 16 mg/dL (7-18); CO2 39.1 mmol/L (21.0-32.0); CREATININE 0.7 mg/dL (0.55-1.02); Calcium 8.8 mg/dL (8.5-10.1); Chloride 107 mmol/L (98-107); Estimated GFR 86.83 (mL/min/1.73m2); Glucose 90 mg/dL (74-106); Magnesium 1.7 mg/dL (1.8-2.4); Potassium 3.3 mmol/L (3.5-5.1); Sodium 149 mmol/L (136-145)
[2023-05-20] MEDS: Ketorolac 15 MG/ML VIAL IVP ×2 (08:45→19:59)
[2023-05-20 09:08] LABS: Lab Add On Test DONE
[2023-05-20 09:53] LABS: Procalcitonin < 0.1 ng/mL
[2023-05-20 10:00] LABS: BE (Venous) 19 mmol/L (-2-3); HCO3 (Venous) 44 mmol/L (23-28); O2 Sat (Venous) 86 %; TCO2 (Venous) 40 mmol/L (24-29); pH (Venous) 7.41 (7.31-7.41); pO2 (Venous) 49 mmHg
[2023-05-20 10:03] LABS: pCO2 (Venous) 68 mmHg (41-51)
[2023-05-20] MEDS: Lidocaine/Prilocaine Cream 5 GM TUBE TP (10:10)
--- NOTE | 2023-05-20 10:26 | NUR.NOTE ---
at 09:45 RN starts patient on 6 liters of 02 via high flow nasal cannula and humidifies same Sat was 89%. Presently patient is on 5 liters of 02 via high flow nasal cannula. Respiratory therapist to speak with MD about necessity of starting patient on opti-flow. Respiratory therapist to take ABG.Nursing Note:
[2023-05-20] MEDS: MAGNESIUM SULFATE 2 GM/50 ML BAG IVPB (10:42)
[2023-05-20] MEDS: Furosemide 40 MG/4 ML VIAL IVP (10:42)
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
--- NOTE | 2023-05-20 11:26 | NUR.NOTE ---
Respiratory therapist is going to check with MD about need for ABG.Nursing Note:
[2023-05-20] MEDS: Potassium Chloride 20 MEQ TABCR 40 MEQ PO (11:39)
--- NOTE | 2023-05-20 11:50 | W.PM.PROGNOT ---
Date of Service Date of service: 05/20/23 Time of Service: 07:45 Assessment and Plan Assessment and plan (1) Acute on chronic respiratory failure with hypoxia and hypercapnia: Status: Acute Assessment and plan: I think this has to do with atelectasis, splinting due to pain, possible mild pulmonary edema. There is no pneumothorax, pneumonia, or COPD exacerbation. Encourage IS, pain control. Monitor I/Os and daily weights. I have changed the diet to low sodium. Would monitor in the ICU for the rest of the day. (2) Left rib fracture: Status: Acute Assessment and plan: As above S/p rib block, but still in significant pain. Provide pain control. I have added toradol. Encourage IS. (3) Atelectasis: Status: Acute Assessment and plan: As above (4) Contusion of rib on left side: Status: Acute Assessment and plan: As above (5) COPD (chronic obstructive pulmonary disease): Status: Chronic Assessment and plan: Continue bronchodilators. Target O2 sat is 88-92%. (6) Multiple contusions: Status: Acute Assessment and plan: Due to multiple falls at home. C/s PT. (7) Fall: Status: Chronic Assessment and plan: C/s PT (8) Tobacco abuse: Status: Chronic Assessment and plan: Provide nicotine replacement. (9) DVT prophylaxis: Status: Acute Assessment and plan: SC enoxaparin (10) Discharge planning issues: Status: Acute Assessment and plan: DNR/DNI PT consulted. May require SNF on discharge. Total Critical Care Time 60 minutes. Subjective Subjective Interval history since last seen: The patient was on 3L of O2 by NC overnight saturating in the 90s, per last O2 sats recorded at 23:11. However, this morning, the patient was saturating 84%. She did not feel short of breath, but did have significant subcostal/L-sided thoracic pain which was making it difficult for her to take a deep breath, denying dizziness/nausea. Her O2 was titrated up to 6L with humidification. CXR was obtained: no pneumothorax, atelectasis vs pneumonia, pulmonary edema. The patient was ordered incentive spirometry, a nebulizer treatment with RT. O2 requirement increased to 11-13L of O2 by NC. Transferred to the ICU at that point. Confirmed DNR/DNI status. Ordered to be transitioned to a humidified heated high flow system, furosemide 40 mg IV, ABG ordered. The patient did not tolerate an ABG. Her O2 requirement improved to 5L before there was a chance to place her on a humidified heated high flow system. Exam Narrative Exam Narrative: General: Pleasant elderly female who does not look ill; not dyspneic/tachypenic/cyanotic on supplemental O2 HEENT: EOMI, MMM Heart: RRR, + ELIZABETH Lungs: Diminished breath sounds, especially on the L; dull at B bases Abdomen: soft, tender subcostally bilaterally, nondistended Extremities: no edema BLEs Objective Last Vital Signs Temp 36.4 C L 05/20/23 10:23 Pulse 49 L 05/20/23 11:01 Resp 15 05/20/23 11:10 BP 125/61 05/20/23 11:01 Pulse Ox 93 05/20/23 11:10 Laboratory Results - last 24 hr 05/19/23 05/19/23 05/19/23 14:14 15:12 15:44 WBC RBC Hgb Hct MCV MCH MCHC RDW Plt Count MPV Immature Gran % Neutrophils % Lymphocytes % Monocytes % Eosinophils % Basophils % Nucleated RBC % Absolute Neutrophils Absolute Lymphocytes Absolute Monocytes Absolute Eosinophils Absolute Basophils ABG Sample Site ABG pH ABG pCO2 ABG pO2 ABG HCO3 ABG Total CO2 ABG O2 Saturation ABG Base Excess VBG pH VBG pCO2 VBG pO2 VBG HCO3 VBG Total CO2 VBG O2 Saturation VBG Base Excess Oxygen Liter Flow FiO2 Sodium 147 H Potassium 3.0 L Chloride 105 Carbon Dioxide 41.6 H Anion Gap 0.4 L BUN 18 Creatinine 0.9 Est GFR (CKD-EPI 2020) 64.23 Glucose 96 Calcium 8.5 Magnesium Total Bilirubin 1.0 AST 46 H ALT 33 Alkaline Phosphatase 92 Total Protein 6.8 Albumin 3.2 L Procalcitonin Urine Color Yellow Urine Clarity Clear Urine pH 5.5 Ur Specific [place] >= 1.030 H Urine Protein 30 H Urine Ketones Negative Urine Blood Negative Urine Nitrite Negative Urine Bilirubin Small H Urine Urobilinogen 0.2 Ur Leukocyte Esterase Negative Urine RBC 0-2 Urine WBC 3-5 Ur Epithelial Cells Many Urine Crystals Negative Urine Bacteria Moderate Urine Casts Negative Urine Mucus Trace Ur Culture Indicated? No/Sq. Contamination Urine Glucose Negative COVID-19 Source Nasal/Nares SARS-CoV-2 (PCR) Negative Add-On Test Request 05/19/23 05/20/23 05/20/23 15:44 07:50 07:50 WBC 7.34 7.93 RBC 4.08 3.97 Hgb 12.5 12.1 Hct 40.1 38.9 MCV 98 H 98 H MCH 30.6 30.5 MCHC 31.2 L 31.1 L RDW 13.6 13.5 Plt Count 215 218 MPV 10.1 10.6 Immature Gran % 0.4 0.3 Neutrophils % 62.1 65.2 Lymphocytes % 19.3 17.9 Monocytes % 11.2 10.6 Eosinophils % 6.3 5.2 Basophils % 0.7 0.8 Nucleated RBC % 0.0 0.0 Absolute Neutrophils 4.56 5.18 Absolute Lymphocytes 1.42 1.42 Absolute Monocytes 0.82 H 0.84 H Absolute Eosinophils 0.46 0.41 Absolute Basophils 0.05 0.06 ABG Sample Site ABG pH ABG pCO2 ABG pO2 ABG HCO3 ABG Total CO2 ABG O2 Saturation ABG Base Excess VBG pH VBG pCO2 VBG pO2 VBG HCO3 VBG Total CO2 VBG O2 Saturation VBG Base Excess Oxygen Liter Flow FiO2 Sodium 149 H Potassium 3.3 L Chloride 107 Carbon Dioxide 39.1 H Anion Gap 2.9 L BUN 16 Creatinine 0.7 Est GFR (CKD-EPI 2020) 86.83 Glucose 90 Calcium 8.8 Magnesium 1.7 L Total Bilirubin AST ALT Alkaline Phosphatase Total Protein Albumin Procalcitonin Urine Color Urine Clarity Urine pH Ur Specific [place] Urine Protein Urine Ketones Urine Blood Urine Nitrite Urine Bilirubin Urine Urobilinogen Ur Leukocyte Esterase Urine RBC Urine WBC Ur Epithelial Cells Urine Crystals Urine Bacteria Urine Casts Urine Mucus Ur Culture Indicated? Urine Glucose COVID-19 Source SARS-CoV-2 (PCR) Add-On Test Request 05/20/23 05/20/23 05/20/23 07:50 07:50 08:50 WBC RBC Hgb Hct MCV MCH MCHC RDW Plt Count MPV Immature Gran % Neutrophils % Lymphocytes % Monocytes % Eosinophils % Basophils % Nucleated RBC % Absolute Neutrophils Absolute Lymphocytes Absolute Monocytes Absolute Eosinophils Absolute Basophils ABG Sample Site Cancelled ABG pH Cancelled ABG pCO2 Cancelled ABG pO2 Cancelled ABG HCO3 Cancelled ABG Total CO2 Cancelled ABG O2 Saturation Cancelled ABG Base Excess Cancelled VBG pH VBG pCO2 VBG pO2 VBG HCO3 VBG Total CO2 VBG O2 Saturation VBG Base Excess Oxygen Liter Flow Cancelled FiO2 Cancelled Sodium Potassium Chloride Carbon Dioxide Anion Gap BUN Creatinine Est GFR (CKD-EPI 2020) Glucose Calcium Magnesium Total Bilirubin AST ALT Alkaline Phosphatase Total Protein Albumin Procalcitonin < 0.1 Urine Color Urine Clarity Urine pH Ur Specific [place] Urine Protein Urine Ketones Urine Blood Urine Nitrite Urine Bilirubin Urine Urobilinogen Ur Leukocyte Esterase Urine RBC Urine WBC Ur Epithelial Cells Urine Crystals Urine Bacteria Urine Casts Urine Mucus Ur Culture Indicated? Urine Glucose COVID-19 Source SARS-CoV-2 (PCR) Add-On Test Request DONE 05/20/23 09:41 WBC RBC Hgb Hct MCV MCH MCHC RDW Plt Count MPV Immature Gran % Neutrophils % Lymphocytes % Monocytes % Eosinophils % Basophils % Nucleated RBC % Absolute Neutrophils Absolute Lymphocytes Absolute Monocytes Absolute Eosinophils Absolute Basophils ABG Sample Site ABG pH ABG pCO2 ABG pO2 ABG HCO3 ABG Total CO2 ABG O2 Saturation ABG Base Excess VBG pH 7.41 VBG pCO2 68 H* VBG pO2 49 VBG HCO3 44 H VBG Total CO2 40 H VBG O2 Saturation 86 VBG Base Excess 19 H Oxygen Liter Flow FiO2 Sodium Potassium Chloride Carbon Dioxide Anion Gap BUN Creatinine Est GFR (CKD-EPI 2020) Glucose Calcium Magnesium Total Bilirubin AST ALT Alkaline Phosphatase Total Protein Albumin Procalcitonin Urine Color Urine Clarity Urine pH Ur Specific [place] Urine Protein Urine Ketones Urine Blood Urine Nitrite Urine Bilirubin Urine Urobilinogen Ur Leukocyte Esterase Urine RBC Urine WBC Ur Epithelial Cells Urine Crystals Urine Bacteria Urine Casts Urine Mucus Ur Culture Indicated? Urine Glucose COVID-19 Source SARS-CoV-2 (PCR) Add-On Test Request Objective Narrative Objective Narrative: CXR: Left basilar opacities which may represent atelectasis or pneumonia Time Spent with Patient Time Spent with Patient: >50 minutes Time was spent: preparing to see the patient(eg.review tests), obtaining and/or reviewing separately otained hiistory, ordering medications,tests, procedures, referring, communicating with other health day care aide, indepentently interpreting results, counseling the patient and care coordination
--- NOTE | 2023-05-20 14:19 | NUR.NOTE ---
manager utilization management meets with patient to discuss short term rehab and will speak to Alexey, patient's case therapist about the patient's desire to investigate honey blender placement.Nursing Note:
[2023-05-20] MEDS: Gabapentin 300 MG CAP 600 MG PO (21:10)
[2023-05-20] MEDS: Atorvastatin 40 MG TAB PO ×2 (21:10)
[2023-05-20] MEDS: traMADol 50 MG TAB PO (21:11)
[2023-05-21] VITALS (70 sets, daily range): BP systolic 108–171; BP diastolic 50–76; PULSE 45–66; RESP 14–26; TEMP 36.2–37; O2SAT 3–94
[2023-05-21 07:37] LABS: Abs Immature Grans 0.02 10^3/uL (0.0-0.06); Absolute Basophil Count 0.06 10^3/uL (0.0-0.2); Absolute Eosinophil Count 0.61 10^3/uL (0.0-0.7); Absolute Lymphocyte Count 1.72 10^3/uL (1.2-3.4); Absolute Monocyte Count 0.77 10^3/uL (0.1-0.8); Absolute Neutrophil Count 5.58 10^3/uL (1.2-6.7); Basophils % 0.7; HCT 37.7 % (36.0-46.0); Immature Grans % 0.2; Lymphocytes % 19.6; MCH 30.8 pg (27.0-33.0); MCHC 31.8 % (32.0-36.0); MCV 97 fL (80-95); MPV 10.6 fL (8.0-11.0); Monocytes % 8.8; Neutrophils % 63.7; Platelet Count 237 10^3/uL (130-400); RBC 3.89 10^6/uL (3.93-5.22); RDW 13.5 % (11.7-14.6); WBC 8.76 10^3/uL (4.4-10.8)
[2023-05-21] MEDS: Normal Saline Flush 10 ML SYR IVP (07:41)
[2023-05-21] MEDS: Ketorolac 15 MG/ML VIAL IVP (07:42)
[2023-05-21] MEDS: Lidocaine 5% Patch 1 PATCH TP (07:49)
[2023-05-21] MEDS: Sertraline 50 MG TAB 150 MG PO (07:50)
[2023-05-21] MEDS: amLODIPine 5 MG TAB PO (07:50)
[2023-05-21] MEDS: Cholecalciferol (Vitamin D3) 1,000 UNIT TAB 2000 UNITS PO (07:51)
[2023-05-21] MEDS: Acetaminophen 325 MG TAB 650 MG PO ×4 (07:51→21:06)
[2023-05-21] MEDS: Metoprolol CR 50 MG TABCR 25 MG PO (07:52)
[2023-05-21] MEDS: Pramipexole 0.5 MG TAB PO ×2 (07:52→21:06)
[2023-05-21] MEDS: Furosemide 20 MG TAB PO (07:53)
[2023-05-21] MEDS: Mirabegron 25 MG TABCR PO (07:53)
[2023-05-21] MEDS: Nicotine 14 MG/24 HR PATCH TD (07:53)
[2023-05-21] MEDS: Aspirin E.C. 81 MG TABEC PO (07:54)
[2023-05-21] MEDS: Isosorbide Mononitrate 30 MG TABCR 60 MG PO (07:54)
[2023-05-21] MEDS: Pantoprazole 40 MG TABCR PO (07:54)
[2023-05-21 07:55] LABS: Anion Gap 4.6 mmol/L (3-11); BUN 22 mg/dL (7-18); CO2 38.4 mmol/L (21.0-32.0); CREATININE 0.8 mg/dL (0.55-1.02); Calcium 8.8 mg/dL (8.5-10.1); Chloride 103 mmol/L (98-107); Estimated GFR 73.98 (mL/min/1.73m2); Glucose 87 mg/dL (74-106); Magnesium 1.8 mg/dL (1.8-2.4); Potassium 3.6 mmol/L (3.5-5.1); Sodium 146 mmol/L (136-145)
[2023-05-21] MEDS: Enoxaparin 30 MG/0.3 ML SYR SC (08:16)
[2023-05-21] MEDS: Budesonide/Formoterol 160/4.5 6 GM 60 PUFF INH IH ×2 (08:42→19:09)
[2023-05-21] MEDS: Tiotropium Bromide-Respimat 10 PUFF INH 2 PUFF IH (08:43)
--- NOTE | 2023-05-21 10:05 | W.PM.PROGNOT ---
Date of Service Date of service: 05/21/23 Time of Service: 10:05 Assessment and Plan Assessment and plan (1) Acute on chronic respiratory failure with hypoxia and hypercapnia: Status: Acute Assessment and plan: Continue to address atelectasis, splinting due to pain. There is no pneumothorax, pneumonia, or COPD exacerbation. Encourage IS, pain control. Add acapella and mucinex. Monitor I/Os and daily weights. Ok to transfer out of the ICU. (2) Left rib fracture: Status: Acute Assessment and plan: As above S/p rib block, but still in significant pain. Continue pain control. Encourage IS. (3) Atelectasis: Status: Acute Assessment and plan: As above (4) Contusion of rib on left side: Status: Acute Assessment and plan: As above (5) COPD (chronic obstructive pulmonary disease): Status: Chronic Assessment and plan: Continue bronchodilators. Target O2 sat is 88-92%. (6) Multiple contusions: Status: Acute Assessment and plan: Due to multiple falls at home. PT consulted. (7) Fall: Status: Chronic Assessment and plan: PT consulted. (8) Tobacco abuse: Status: Chronic Assessment and plan: Provide nicotine replacement. (9) DVT prophylaxis: Status: Acute Assessment and plan: SC enoxaparin (10) Discharge planning issues: Status: Acute Assessment and plan: DNR/DNI PT consulted. Transfer out of the ICU. May require SNF on discharge. Subjective Subjective Interval history since last seen: Ms Weber states her pain is still 6/10. She had a hard time sleeping because of the pain. She spent the night on 3L of O2, but this morning was saturating in the 80s and the O2 had to be increased to 4 L. She is back down to 3L now. She has been working with IS/acapella. Denies dizziness, SOB, nausea. Would like to have something to help her sleep. Exam Narrative Exam Narrative: General: Pleasant elderly female who is on 3L of O2 by NC - no dyspnea, tachypnea, cyanosis, A&Ox2 HEENT: EOMI, MMM Heart: RRR, + ELIZABETH Lungs: Diminished breath sounds B anteriorly Abdomen: soft, tender subcostally bilaterally, nondistended Extremities: no edema BLEs Objective Last Vital Signs Temp 36.6 C 05/21/23 08:18 Pulse 58 L 07/23/23 07:49 Resp 14 05/21/23 08:18 BP 111/50 L 05/21/23 08:18 Pulse Ox 3 L 05/21/23 08:42 Laboratory Results - last 24 hr 05/20/23 05/21/23 05/21/23 08:50 06:20 06:20 WBC 8.76 RBC 3.89 L Hgb 12.0 Hct 37.7 MCV 97 H MCH 30.8 MCHC 31.8 L RDW 13.5 Plt Count 237 MPV 10.6 Immature Gran % 0.2 Neutrophils % 63.7 Lymphocytes % 19.6 Monocytes % 8.8 Eosinophils % 7.0 Basophils % 0.7 Nucleated RBC % 0.0 Absolute Neutrophils 5.58 Absolute Lymphocytes 1.72 Absolute Monocytes 0.77 Absolute Eosinophils 0.61 Absolute Basophils 0.06 ABG Sample Site Cancelled ABG pH Cancelled ABG pCO2 Cancelled ABG pO2 Cancelled ABG HCO3 Cancelled ABG Total CO2 Cancelled ABG O2 Saturation Cancelled ABG Base Excess Cancelled Oxygen Liter Flow Cancelled FiO2 Cancelled Sodium 146 H Potassium 3.6 Chloride 103 Carbon Dioxide 38.4 H Anion Gap 4.6 BUN 22 H Creatinine 0.8 Est GFR (CKD-EPI 2020) 73.98 Glucose 87 Calcium 8.8 Magnesium 1.8 Time Spent with Patient Time Spent with Patient: 25-34 minutes Time was spent: preparing to see the patient(eg.review tests), obtaining and/or reviewing separately otained hiistory, ordering medications,tests, procedures, referring, communicating with other health date night caregiver, indepentently interpreting results, counseling the patient and care coordination
[2023-05-21] MEDS: guaiFENesin 600 MG TABCR PO ×2 (12:57→21:06)
[2023-05-21] MEDS: Gabapentin 300 MG CAP 600 MG PO (21:06)
[2023-05-21] MEDS: Atorvastatin 40 MG TAB PO (21:06)
[2023-05-21] MEDS: traMADol 50 MG TAB PO (21:07)
[2023-05-21] MEDS: Melatonin 3 MG TAB PO (21:20)
[2023-05-22] VITALS (8 sets, daily range): BP systolic 101–168; BP diastolic 63–80; PULSE 50–60; RESP 16–24; TEMP 36.1–36.6; O2SAT 90–95
[2023-05-22 07:33] LABS: Anion Gap 1.5 mmol/L (3-11); BUN 21 mg/dL (7-18); CO2 39.5 mmol/L (21.0-32.0); CREATININE 0.9 mg/dL (0.55-1.02); Calcium 8.8 mg/dL (8.5-10.1); Chloride 102 mmol/L (98-107); Estimated GFR 64.23 (mL/min/1.73m2); Glucose 91 mg/dL (74-106); Magnesium 1.6 mg/dL (1.8-2.4); Potassium 3.7 mmol/L (3.5-5.1); Sodium 143 mmol/L (136-145)
[2023-05-22] MEDS: Tiotropium Bromide-Respimat 10 PUFF INH 2 PUFF IH (07:49)
[2023-05-22] MEDS: Budesonide/Formoterol 160/4.5 6 GM 60 PUFF INH IH ×2 (07:51→19:16)
[2023-05-22] MEDS: Metoprolol CR 50 MG TABCR 25 MG PO (08:36)
[2023-05-22] MEDS: Nicotine 14 MG/24 HR PATCH TD (08:36)
[2023-05-22] MEDS: Lidocaine 5% Patch 1 PATCH TP (08:36)
[2023-05-22] MEDS: Pramipexole 0.5 MG TAB PO ×2 (08:37→19:51)
[2023-05-22] MEDS: Isosorbide Mononitrate 30 MG TABCR 60 MG PO (08:37)
[2023-05-22] MEDS: Aspirin E.C. 81 MG TABEC PO (08:37)
[2023-05-22] MEDS: Normal Saline Flush 10 ML SYR IVP ×2 (08:37→19:48)
[2023-05-22] MEDS: Enoxaparin 30 MG/0.3 ML SYR SC (08:37)
[2023-05-22] MEDS: Acetaminophen 325 MG TAB 650 MG PO ×4 (08:38→19:51)
[2023-05-22] MEDS: Furosemide 20 MG TAB PO (08:38)
[2023-05-22] MEDS: guaiFENesin 600 MG TABCR PO ×2 (08:38→19:51)
[2023-05-22] MEDS: Cholecalciferol (Vitamin D3) 1,000 UNIT TAB 2000 UNITS PO (08:38)
[2023-05-22] MEDS: amLODIPine 5 MG TAB PO (08:38)
[2023-05-22] MEDS: Pantoprazole 40 MG TABCR PO (08:38)
[2023-05-22] MEDS: Sertraline 50 MG TAB 150 MG PO (08:38)
[2023-05-22] MEDS: Mirabegron 25 MG TABCR PO (08:39)
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
--- NOTE | 2023-05-22 12:48 | CMPROGNOTE_ITS ---
Date of service: 05/22/23 Time of Service: 12:48 Care Management Progress Note Progress Note Text Progress Note Text: S/O: Audrey remains inpatient, CM continues to follow. A: 82 year old female admitted to [facility] 05/19/23 for rib pain, multiple falls P: Re-admission, referrals faxed to [facility] for review; awaiting determination. CM continues to follow.
--- NOTE | 2023-05-22 14:04 | CHAPLAIN ---
Audrey was up in the chair when I visited. She was playing Draft! She and a friend in [place] have continuing game going over the phone. Audrey's sister was in to visit earlier today. Audrey is a member of [facility] and she asked me to call his commutator repairer and let him know she is here I left a message for him. Audrey told me she had six sons. One of a heart attack this past August and the other one by suicide a few years. She talked about her sons a bit. I explained my role and offered support.
--- NOTE | 2023-05-22 14:16 | W.PM.PROGNOT ---
Date of Service Date of service: 05/22/23 Time of Service: 14:16 Assessment and Plan Assessment and plan (1) Acute on chronic respiratory failure with hypoxia and hypercapnia: Status: Acute Assessment and plan: Continue to address atelectasis, splinting due to pain. There is no pneumothorax, pneumonia, or COPD exacerbation. Encourage IS, pain control, acapella and mucinex. Monitor I/Os and daily weights. (2) Left rib fracture: Status: Acute Assessment and plan: As above S/p rib block, but still in significant pain. Continue pain control. Encourage IS. (3) Atelectasis: Status: Acute Assessment and plan: As above (4) Contusion of rib on left side: Status: Acute Assessment and plan: As above (5) COPD (chronic obstructive pulmonary disease): Status: Chronic Assessment and plan: Continue bronchodilators. Target O2 sat is 88-92%. (6) Multiple contusions: Status: Acute Assessment and plan: Due to multiple falls at home. PT consulted. She walked the hallway today. (7) Fall: Status: Chronic Assessment and plan: PT consulted. (8) Tobacco abuse: Status: Chronic Assessment and plan: Provide nicotine replacement. (9) DVT prophylaxis: Status: Acute Assessment and plan: SC enoxaparin (10) Discharge planning issues: Status: Acute Assessment and plan: DNR/DNI PT consulted. May require SNF on discharge; if meets criteria. Otherwise, home PT. Subjective Subjective Patient reports: no new complaints, still having pain (left rib cage), tolerating a regular diet (has a diminished appetite; chronic) and afebrile; denies nausea, vomiting or shortness of breath Exam Narrative Exam Narrative: General: Pleasant elderly female who is on 2L of O2 by NH . Sitting in chair. Frail appearing. HEENT: Sclera clear, MMM Heart: RRR, + ELIZABETH Lungs: Diminished breath sounds B anteriorly. Deep breaths inhibilited by rib cage pain. Abdomen: soft, tender subcostally bilaterally, nondistended Extremities: no edema BLEs Objective Last Vital Signs Temp 36.5 C 05/22/23 11:12 Pulse 60 05/22/23 11:12 Resp 16 05/22/23 11:12 BP 101/63 05/22/23 11:12 Pulse Ox 95 07/24/23 11:12 Laboratory Results - last 24 hr 05/22/23 07:01 Sodium 143 Potassium 3.7 Chloride 102 Carbon Dioxide 39.5 H Anion Gap 1.5 L BUN 21 H Creatinine 0.9 Est GFR (CKD-EPI 2020) 64.23 Glucose 91 Calcium 8.8 Magnesium 1.6 L Time Spent with Patient Time Spent with Patient: 25-34 minutes Time was spent: preparing to see the patient(eg.review tests), obtaining and/or reviewing separately otained hiistory, ordering medications,tests, procedures, referring, communicating with other health career based intervention coordinator, indepentently interpreting results, counseling the patient and care coordination
[2023-05-22] MEDS: traMADol 50 MG TAB PO (16:42)
--- NOTE | 2023-05-22 16:58 | PT.INTREAT ---
Date of service: 05/22/23 Time of Service: 15:57 PT Notes Visit Reasons: Rib Pain, Multiple Falls Inpatient Physical Therapy Treatment Note [facility] Date: 05/22/23 PRECAUTIONS: Standard, Fall, activity as tolerated SUBJECTIVE: Patient reports feeling ok, sitting up in recliner, agreeable to therapy. OBJECTIVE: PAIN: Reports 4/10 at the beginning of therapy, 0/10 after ambulation. BED MOBILITY/TRANSFERS Sit-stand: independent Stand-sit: independent Bed-Chair: independent Chair-bed: independent GAIT Assistive Device: FWW Weight bearing: full Assist: SBA as patient declined gait belt, wheelchair follow Distance: 250 feet Deviation: Patient tends to drift walker left of her body when turning corners, corrects without LOB. VITALS: Patient on 2L /min supplemental O2 via nasal cannula THEREX: 10x each of: Long arc quads, heel raises, toe raises, hip ab/adduction taps, marching. ASSESSMENT: patient tolerates therapy well PLAN: continue global strengthening per plan of care TREATMENT CODE/TIME: 28435 Gait 12 minutes, 71981 Ther Ex 15 minutes beginning at 15:57
[2023-05-22] MEDS: Magnesium Oxide 400 MG TAB 800 MG PO (17:22)
[2023-05-22] MEDS: Ketorolac 15 MG/ML VIAL IVP (19:49)
[2023-05-22] MEDS: Gabapentin 300 MG CAP 600 MG PO (19:52)
[2023-05-22] MEDS: Atorvastatin 40 MG TAB PO (19:53)
[2023-05-22] MEDS: Melatonin 3 MG TAB PO (19:53)
[2023-05-23 03:20] VITALS: BP 148/76; PULSE 62; RESP 18; TEMP 36.6; O2SAT 93
[2023-05-23 06:24] LABS: Magnesium 1.8 mg/dL (1.8-2.4)
[2023-05-23 07:37] VITALS: BP 112/64; PULSE 60; RESP 16; TEMP 36.8; O2SAT 94
[2023-05-23] MEDS: Budesonide/Formoterol 160/4.5 6 GM 60 PUFF INH IH (07:41)
[2023-05-23] MEDS: Tiotropium Bromide-Respimat 10 PUFF INH 2 PUFF IH (07:41)
[2023-05-23] MEDS: Enoxaparin 30 MG/0.3 ML SYR SC (08:43)
[2023-05-23] MEDS: Nicotine 14 MG/24 HR PATCH TD (08:43)
[2023-05-23] MEDS: Lidocaine 5% Patch 2 PATCH TP (08:44)
[2023-05-23 08:45] VITALS: O2SAT 94
[2023-05-23] MEDS: Mirabegron 25 MG TABCR PO (08:45)
[2023-05-23] MEDS: Metoprolol CR 50 MG TABCR 25 MG PO (08:45)
[2023-05-23] MEDS: guaiFENesin 600 MG TABCR PO (08:45)
[2023-05-23] MEDS: Acetaminophen 325 MG TAB 650 MG PO ×2 (08:45→12:01)
[2023-05-23] MEDS: Cholecalciferol (Vitamin D3) 1,000 UNIT TAB 2000 UNITS PO (08:46)
[2023-05-23] MEDS: Pantoprazole 40 MG TABCR PO (08:46)
[2023-05-23] MEDS: Isosorbide Mononitrate 30 MG TABCR 60 MG PO (08:46)
[2023-05-23] MEDS: amLODIPine 5 MG TAB PO (08:46)
[2023-05-23] MEDS: Furosemide 20 MG TAB PO (08:46)
[2023-05-23] MEDS: Sertraline 50 MG TAB 150 MG PO (08:47)
[2023-05-23] MEDS: Pramipexole 0.5 MG TAB PO (08:48)
[2023-05-23] MEDS: Aspirin E.C. 81 MG TABEC PO (08:48)
[2023-05-23] MEDS: traMADol 50 MG TAB PO (09:51)
--- NOTE | 2023-05-23 10:24 | CMDISCH_ITS ---
Date of service: 05/23/23 Time of Service: 10:24 LACE Index Scoring Tool Questions: Length of Stay (in days): 4 - 6 Was the patient admitted via the E.D.?: Yes Comorbidities: Chronic Pulmonary Disease and Any Tumor E.D. Visits: 2 Answers: Total Score: 14 Risk of Readmission: High Risk Care Management Discharge Plan Reason for Hospitalization: Rib pain, multiple falls, COPD Discharge Plan: Audrey will return home with new orders for PT through [facility]. She will transport via private vehicle with family. Patient/Family Education Needs: Review discharge instructions, discuss Ask Me Three. Services Needed at Discharge: Home Health Care Services
--- NOTE | 2023-05-23 10:38 | PT.INTREAT ---
PT Notes Visit Reasons: Rib Pain, Multiple Falls Inpatient Physical Therapy Treatment Note [facility] Date: 05/23/23 PRECAUTIONS:Standard OBJECTIVE: Sit-stand: CGA/SBA Stand-sit: SBA GAIT Assistive Device: FWW Weight bearing: Full Assist: CGA/SBA Distance: Approx 300ft Deviation: Pt did take her hand off the walker at one point and did have slight LOB which she was able to correct almost independently. THEREX: Pt did not feel up to standing exercises so completed seated LAQ x 10 B, hip abd x 10, marching x 20. STAIRS:Clinic stairs 2 rails [facility] step over step x4. ASSESSMENT: Pt tolerated today's session well pt was fatigued post session. PLAN: Cont as per PT POC as per sherine. TREATMENT CODE/TIME: 10:20-10:35 (15) TA
[2023-05-23 11:02] VITALS: BP 107/54; PULSE 57; RESP 16; TEMP 36.7; O2SAT 94
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
--- NOTE | 2023-05-23 13:51 | PDOC.HHF2F ---
Home Health Referral Home Health Orders Clinical synopsis of why skilled professionals are needed: Pt experiencing falls at home. Incurred a rib fracture and multiple contusions from falling. Worked well with PT. Ambulating with a walker. Medical diagnosis necessitation home health referral: Falls with gait instability. Registered Nurse: Check all that apply Instruct on new or changed medication(s)/assess compliance: Ordered Physical Therapist: Check all that apply Increase strength & endurance for safe mobility at home: Ordered To design/establish home maintenance program: Ordered Fall reduction therapy program for patient with history of frequent falls: Ordered Home safety evaluation and teaching/gait training including stair management (if applicable): Ordered Occupational Therapist: Evaluate and treat for patient unable to perform ADL/IADL/self-care: Ordered Upper extremity strengthening, range and motion: Ordered Home Bound Status Requires the aid of supportive device (check all that apply): Walker Assistance of another person (Describe assistance and medical necessity): Due to gait instability and frailty. Describe why leaving home would require a considerable and taxing effort: Safety Concerns: describe (as above. ) Encounter Date and Reason: I certify that a FTF encounter for this patient was performed on May 23, 2023 and that such encounter was related to the primary reason the patient requires home health services. The encounter was conducted in the following manner: By me as the certifying physician, PROCESS CONTROL PROGRAMMER, PA or By an inpatient physician, PROCESS CONTROL PROGRAMMER or PA during an inpatient stay who communicated findings to me, Certification And Authentication I certify that I composed the above information based on my clinical judgment relating to this patient's medical condition and, if applicable, clinical findings communicated to me by the NPP or inpatient physician who performed the FTF encounter. Name of Provider that will be monitoring home health services: Fritz Mirza
[2023-05-23 15:26] VITALS: BP 118/57; PULSE 53; RESP 16; TEMP 37; O2SAT 95
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
== END 2023-05-23 17:10 | disposition home health service (06) | DRG 205 ==
LOC: ER 17:53 → MS 18:29 → ICU 05-20 09:20 → MS 05-21 17:37
PROVIDERS: Family Medicine; Student in an Organized Health Care Education/Training Program; Admitting Provider Internal Medicine; Emergency Provider Student in an Organized Health Care Education/Training Program; PCP Family Medicine; Visit Provider Internal Medicine
DX: J98.11 Atelectasis (principal); J96.21 Acute and chronic respiratory failure with hypoxia; J96.22 Acute and chronic respiratory failure with hypercapnia; S22.32XA Fracture of one rib, left side, initial encounter for closed fracture; S20.212A Contusion of left front wall of thorax, initial encounter; J44.9 Chronic obstructive pulmonary disease, unspecified; W19.XXXA Unspecified fall, initial encounter; R29.6 Repeated falls; Z99.81 Dependence on supplemental oxygen; S00.93XA Contusion of unspecified part of head, initial encounter; M54.12 Radiculopathy, cervical region; F17.200 Nicotine dependence, unspecified, uncomplicated; K29.50 Unspecified chronic gastritis without bleeding; K44.9 Diaphragmatic hernia without obstruction or gangrene; I25.5 Ischemic cardiomyopathy; I71.40 Abdominal aortic aneurysm, without rupture, unspecified; N32.81 Overactive bladder; Z85.528 Personal history of other malignant neoplasm of kidney; I25.10 Atherosclerotic heart disease of native coronary artery without angina pectoris; G25.81 Restless legs syndrome; G47.00 Insomnia, unspecified; E78.5 Hyperlipidemia, unspecified; I10 Essential (primary) hypertension; Z95.5 Presence of coronary angioplasty implant and graft; Z96.651 Presence of right artificial knee joint; I25.2 Old myocardial infarction; M54.16 Radiculopathy, lumbar region; F41.8 Other specified anxiety disorders; F32.9 Major depressive disorder, single episode, unspecified; Z66 Do not resuscitate
CPT/HCPCS: 36415; 74177; 80048; 80053; 82805; 82962; 84145; 87635; 93005; 94640; 97110; 97116; 97162; 97530; 99285; J1650; 70450; 71045; 71260; 72125; 81003; 81015; 83735; 85025; 93010; 94664; 94667; 94668; 94760; 99223; 99232; 99239; 99291; J1885; J1940; J3490; J7620

== ENCOUNTER 2023-06-05 22:06 | Emergency (ER) | payer MEDICARE, SELFPAY ==
[2023-06-05 22:12] VITALS: BP 173/78; PULSE 57; RESP 16; TEMP 37; O2SAT 86
--- NOTE | 2023-06-05 22:15 | RT.EKG_ITS ---
APPROVED REPORT Exam: Resting ECG Reason for Exam: short of breath Patient Location: E HR:56 bpm ECG Measurements Heart Rate 56 AXIS CO 196 P -4 QRSd 95 QRS 29 QT 457 T 42 QTc 441 Conclusion Sinus bradycardia...rate< 60 Left ventricular hypertrophy...multiple voltage criteria Physician: no stemi, stable, unchanged from prior ekg on 05/19/23
--- NOTE | 2023-06-05 22:15 | DI.CT_ITS ---
Exam(s) CT ABDOMEN PELVIS W EXAM: CT ABDOMEN PELVIS W CLINICAL HISTORY: diarrhea, abdominal pain TECHNIQUE: Imaging Protocol: Axial computed tomography images with coronal and sagittal reformatted images were created and reviewed CONTRAST MATERIAL: Intravenous: Omnipaque contrast volume:66 mL Oral: No COMPARISON: CT CT CHEST/ABD/PEL W from 05/19/2023 FINDINGS: The examination is limited due to patient motion artifact. ABDOMEN: Lung Bases: Cardiomegaly. Coronary artery calcifications are present. Scarring or atelectasis in th e lung bases. Liver: Normal density. No measurable mass. Portal, Superior Mesenteric, and Splenic Veins: Unremarkable. Gallbladder and Biliary Tract: No radiodense calculus or dilation. Pancreas: Normal density. There is fatty atrophy. Parenchymal calcifications are again seen. Spleen: Normal. Adrenals: No masses seen. Kidneys: Normal size, contour and axis. Calcifications in the left kidney which may be vascular or no nobstructing stones which appears stable. Stable bilateral renal cystic lesions. There is mild prom inence of the renal pelves bilaterally. No follow-up is recommended. Abdominal Aorta: Stable infrarenal abdominal aortic aneurysm. No evidence of acute dissection. Ther e is extensive atherosclerosis of the abdominal aorta and its runoff. Bowel: There is no evidence of bowel obstruction. There are postsurgical changes at the rectosigmoid junction. There is a moderate amount of stool throughout the colon. There is thickening of the wal l of the distal stomach. The stomach is incompletely distended. No evidence of appendicitis. Peritoneal Cavity: No ascites, collection or mesenteric inflammatory response. No free air. Lymph Nodes: Within normal limits. Bones: There are marked degenerative changes seen throughout the lumbar spine. No acute fractures or subluxations are seen. Soft Tissues: Mild edema is seen in the soft tissues. Calcifications are seen in the subcutaneous ti ssues in the gluteal region on the right which are likely injection granuloma. PELVIS: Bladder: There is marked distension of the urinary bladder without wall thickening. Reproductive Organs: Status post hysterectomy. Lymph Nodes: Within normal limits. Bones: Within normal limits for the patient's age. IMPRESSION: 1. No acute abdominal or pelvic process. 2. Distension of the urinary bladder which may reflect urinary retention. No bladder wall thickening . RADIATION DOSE DELIVERED: 563.66mGy.cm Total DLP DATA REPOSITORY: All CT scans at this facility are submitted to the National Radiology Data Registry (NRDR) Dose Index Registry (DIR) with the [employer] ([employer]). RADIATION OPTIMIZATION: All CT scans at this facility use at least one of these dose optimization te chniques: automated exposure control; mA and/or kV adjustment per patient size (includes targeted exa ms where dose is matched to clinical indication); or iterative reconstruction.
[2023-06-05 22:21] VITALS: RESP 18
[2023-06-05 22:44] LABS: BE (Venous) 15 mmol/L (-2-3); HCO3 (Venous) 39 mmol/L (23-28); O2 Sat (Venous) 54 %; TCO2 (Venous) 36 mmol/L (24-29); pCO2 (Venous) 57 mmHg (41-51); pH (Venous) 7.45 (7.31-7.41); pO2 (Venous) 28 mmHg
[2023-06-05] MEDS: Normal Saline 500 ML IV (22:44)
[2023-06-05 22:45] LABS: Lactate 0.8 mmol/L (0.6-1.4)
[2023-06-05 22:46] LABS: Abs Immature Grans 0.01 10^3/uL (0.0-0.06); Absolute Basophil Count 0.07 10^3/uL (0.0-0.2); Absolute Eosinophil Count 0.47 10^3/uL (0.0-0.7); Absolute Lymphocyte Count 1.99 10^3/uL (1.2-3.4); Basophils % 1.1; Eosinophils % 7.3; HCT 40.6 % (36.0-46.0); HGB 12.8 g/dL (11.2-15.7); Immature Grans % 0.2; Lymphocytes % 30.9; MCH 30.1 pg (27.0-33.0); MCHC 31.5 % (32.0-36.0); MCV 96 fL (80-95); MPV 10.1 fL (8.0-11.0); Monocytes % 9.3; Neutrophils % 51.2; Platelet Count 270 10^3/uL (130-400); RBC 4.25 10^6/uL (3.93-5.22); RDW 13.5 % (11.7-14.6); RDW-SD 47.6 fL; WBC 6.44 10^3/uL (4.4-10.8)
[2023-06-05 23:09] LABS: ALT 20 U/L (14-59); AST 26 U/L (15-37); Albumin 3.7 g/dL (3.4-5.0); Alkaline Phosphatase 110 U/L (46-116); Anion Gap 2.8 mmol/L (3-11); BUN 13 mg/dL (7-18); Bilirubin, Total 0.9 mg/dL (0.2-1.0); CO2 36.2 mmol/L (21.0-32.0); CREATININE 0.9 mg/dL (0.55-1.02); Calcium 10.3 mg/dL (8.5-10.1); Chloride 102 mmol/L (98-107); Estimated GFR 64.23 (mL/min/1.73m2); Glucose 88 mg/dL (74-106); Potassium 5.1 mmol/L (3.5-5.1); Sodium 141 mmol/L (136-145); TSH (W/Ref FT4) 1.89 uIU/mL (0.36-3.74); Total Protein 7.4 g/dL (6.4-8.2); Troponin I < 50 ng/L (<or=60)
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
[2023-06-05 23:17] LABS: Bilirubin Negative (Negative); Blood Trace-intact (Negative); Clarity Clear (Clear); Glucose Negative (Negative); Ketones Negative (Negative); Leukocyte Esterase Negative (Negative); Nitrite Negative (Negative); Urobilinogen 0.2 mg/dL (Up to 0.2); pH 8.5 (5-8)
--- NOTE | 2023-06-05 23:22 | ED.PROG_ITS ---
Date of service: 06/05/23 Time of Service: 23:23 Medical Decision Making I have received signout and I have seen and examined the patient. She feels improved. She tells me that she believes she has had swelling of her kidneys in the past but was not familiar with hydronephrosis. Bladder scan revealed no retained urine. My plan will be to discharge her home with outpatient follow-up with her primary care provider and urology. I have advised them to return here for any new or worrisome symptoms. They voiced understanding agreement with the discharge plan. All her questions and concerns were addressed prior to discharge Medical Records Medical records reviewed: Yes I reviewed the patient's medical records. Imaging Data Radiologic Study: Imaging: CT Scan (Abdomen pelvis with IV contrast) Radiologist's impression: 1. Mild findings of urinary retention including mildly distended urinary bladder and mild bilateral hydronephrosis. 2. Other stable chronic findings, including 4 cm infrarenal abdominal aortic aneurysm. Lab Data Lab results reviewed: Yes I reviewed the patient's lab results. Lab results narrative: Mild hypercalcemia. Normal white count and normal H&H. Normal LFTs. Normal lipase. Urine reveals slightly elevated pH at 8.5 and trace blood. Negative for nitrite negative for leukocyte esterase. Microscopic is unremarkable. Narrative I have received signout. We are awaiting results of the CT and labs. Sign Out Sign Out Data: Sign Out Comment: Follow-up on CT imaging for generalized illness Last updated by Dheeraj Aleman DO at 06/05/23 23:20 Discharge Plan Disposition Patient Disposition: Home Discharge Details Chief Complaint: GenMedical Clinical Impression: Abdominal pain, Abdominal aortic aneurysm, COPD (chronic obstructive pulmonary disease), Hydronephrosis Primary Care Provider: Leann Messina V ED Provider: Elizabeth Toscano Home Meds and New Rx's Prescriptions: No Action metoprolol succinate 50 mg tablet extended release 24 hr 25 mg PO DAILY nicotine (polacrilex) [Nicorette] 4 mg gum 4 mg BC Q2H nicotine 14 mg/24 hr patch 24 hour 1 patch TD DAILY (DME) Oxygen Tank See Rx Instructions .ROUTE .MEDSUPPLY Qty: 1 Rx Instructions: As directed gabapentin 300 mg capsule 600 mg PO HS tramadol 50 mg tablet 50 mg PO QHS naloxone 4 mg/actuation spray,non-aerosol 1 spray intranasal Q2-3M PRN (Reason: opioid overdose) Qty: 2 2RF Rx Instructions: spray 1 dose into ONE nostril; alternate nostrils w each dose until help arrives furosemide [Lasix] 20 MG tablet 20 mg PO DAILY aspirin [Adult Low Dose Aspirin] 81 mg tablet,delayed release (DR/EC) 81 mg PO DAILY pantoprazole 40 mg tablet,delayed release (DR/EC) 40 mg PO DAILY pramipexole 0.5 mg tablet 0.5 mg PO BID Myrbetriq 25 mg tablet extended release 24 hr 25 mg PO DAILY amlodipine 5 mg tablet 5 mg PO DAILY (DME[place] [facility] [place] Dose Instructions .ROUTE .MEDSUPPLY Qty: 1 0RF Dose Instruction: As directed Rx Instructions: As directed ketoconazole 2 % Shampoo 1 applic TOPICAL PRN PRN albuterol sulfate [ProAir HFA] 90 mcg/actuation Hfa Aerosol Inhaler 2 puff INHALATION Q6H PRN cholecalciferol (vitamin D3) 2,000 unit Tablet,Chewable 2,000 unit PO DAILY ipratropium-albuterol 0.5 mg-3 mg(2.5 mg base)/3 mL solution for nebulization 3 ml UPD Q6H PRN isosorbide mononitrate 30 MG tablet extended release 24 hr 60 mg PO DAILY Trelegy Ellipta 200-62.5-25 mcg blister with device 1 ea INHALATION DAILY Patient Comments: INHALE CONTENTS OF 1 BLISTER ONCE PER DAY. THIS REPLACES BOTH THE SPIRIVA AND SYMBICORT sertraline 100 mg tablet 150 mg PO DAILY Patient Comments: TAKE 1 TABLET BY MOUTH EVERY DAY IN ADDITION TO 50 MG TABLET FOR A TOTAL DOSE OF 150 MG lidocaine 5 % Adhesive Patch,Medicated 1 patch topical DAILY Qty: 10 0RF lidocaine 5 % Adhesive Patch,Medicated 1 patch topical DAILY Qty: 14 0RF (DME) Inhaler, Assist Devices [Pocket Chamber] See Rx Instructions .Route .MEDSUPPLY Qty: 1 0RF Rx Instructions: As directed atorvastatin [Lipitor] 40 MG tablet 40 mg PO HS nitroglycerin [Nitrostat] 0.4 MG tablet, sublingual 0.4 mg Sublingual PRN PRN Discharge Instructions Instructions: COPD (Chronic Obstructive Pulmonary Disease) (ED), Abdominal Pain (ED) Additional Instructions: 1. Call your primary care provider in the morning for follow-up appointment and recheck. 2. You will be contacted by the urologist for follow-up for your hydronephrosis. 3. Take acetaminophen before tramadol as needed for pain. 4. Return to the emergency department for any new or worrisome symptoms. 5. Keep a food diary with time, type of food and any associated symptoms. Discharge Data Discharge Physician: Elizabeth Toscano
[2023-06-05 23:27] LABS: Bacteria Rare HPF (Negative); C & S Indicated? Yes; Casts Negative LPF (Negative); Crystals Negative HPF (Negative); Epithelial Cells Rare HPF (Negative); Mucus Negative (Negative); Other Cells Rare Yeast (Negative); RBC 0-2 HPF (0-2); WBC 0-2 HPF (0-5)
[2023-06-05] MEDS: Omnipaque 350 MG/ML 100 ML BTL IJ (23:28)
[2023-06-05] MEDS: Normal Saline Flush 10 ML SYR IVP (23:29)
[2023-06-05] MEDS: Normal Saline - Diluent 50 ML VIAL IJ (23:29)
[2023-06-05 23:30] LABS: Lipase 38 U/L (16-77)
[2023-06-05 23:52] LABS: COVID-19 PCR Negative (Negative); Influenza A PCR Negative (Negative); Influenza B PCR Negative (Negative); RSV PCR Negative (Negative); Source Nasopharynx
--- NOTE | 2023-06-06 01:02 | DI.VRAD_ITS ---
PROCEDURE INFORMATION: Exam: CT Abdomen And Pelvis With Contrast Exam date and time: 06/05/2023 11:32 PM Age: 82 years old Clinical indication: Abdominal pain; Other: Diarrhea; Prior surgery; Surgery date: 6+ months; Surgery type: Colon resection, hysterectomy TECHNIQUE: Imaging protocol: Computed tomography of the abdomen and pelvis with contrast. Radiation optimization: All CT scans at this facility use at least one of these dose optimization techniques: automated exposure control; mA and/or kV adjustment per patient size (includes targeted exams where dose is matched to clinical indication); or iterative reconstruction. Contrast material: OMNIPAQUE 350; Contrast volume: 66 ml; Contrast route: INTRAVENOUS (IV); COMPARISON: CT CHEST/ABD/PEL W 05/19/2023 4:45 PM FINDINGS: Liver: Normal. No mass. Gallbladder and bile ducts: Normal. No calcified stones. No ductal dilation. Pancreas: Normal. No ductal dilation. Spleen: Normal. No splenomegaly. Adrenal glands: Normal. No mass. Kidneys and ureters: Single small calyceal stone noted in the upper left kidney. Mild bilateral hydronephrosis of indeterminate age. No evidence of ureteral stone. Multiple simple appearing bilateral renal cortical cysts noted, the largest measuring 3.2 cm in the lower pole of the left kidney. Stomach and bowel: Unremarkable. No obstruction. No mucosal thickening. Appendix: No evidence of appendicitis. Intraperitoneal space: Unremarkable. No free air. No significant fluid collection. Vasculature: Diffuse dense atherosclerotic calcification as well as moderate mural thrombus in the abdominal aorta. There is fusiform dilation of the infrarenal abdominal aorta measuring maximum diameter 4 cm. No evidence of aortic dissection. Dense atherosclerotic calcification of the iliac arteries also noted. Lymph nodes: Unremarkable. No enlarged lymph nodes. Urinary bladder: Urinary bladder is moderately distended but otherwise unremarkable. Reproductive: Uterus is surgically absent. No adnexal abnormality. Bones/joints: Severe degenerative disc changes and facet arthropathy throughout the lumbar spine with relative sparing of the L5-S1 disc level. No vertebral body compression or acute fracture. Minimal grade 1 anterolisthesis of L5. Soft tissues: Unremarkable. IMPRESSION: 1. Mild findings of urinary retention including mildly distended urinary bladder and mild bilateral hydronephrosis. 2. Other stable chronic findings, including 4 cm infrarenal abdominal aortic aneurysm. Dictated and Authenticated by: Jean Claude Winn MD. Ordering:MILEY Esqueda MD
[2023-06-06 01:37] LABS: Troponin I < 50 ng/L (<or=60)
--- NOTE | 2023-06-06 01:46 | NUR.NOTE ---
Referral faxed to [facility] Urology to f/u for bilateral hydronephrosis.Nursing Note:
[2023-06-06 01:56] VITALS: O2SAT 95
[2023-06-06 01:58] VITALS: BP 153/89; PULSE 65
[2023-06-06 02:00] VITALS: BP 153/89; PULSE 63; RESP 18; TEMP 36.8; O2SAT 95
== END 2023-06-06 02:01 | disposition home or self-care (01) ==
PROVIDERS: Student in an Organized Health Care Education/Training Program; Emergency Provider Emergency Medicine Emergency Medical Services; PCP Family Medicine
DX: J44.9 Chronic obstructive pulmonary disease, unspecified (principal); N13.30 Unspecified hydronephrosis; I71.40 Abdominal aortic aneurysm, without rupture, unspecified; R10.9 Unspecified abdominal pain; Z99.81 Dependence on supplemental oxygen
CPT/HCPCS: 36415; 80053; 82805; 83690; 87637; 93005; 96360; 96361; 99284; 74177; 81003; 81015; 83605; 84443; 84484; 85025; 87086; 93010; J3490

== ENCOUNTER → 2023-06-19 15:06 | Outpatient (CLI) | payer MEDICARE, SELFPAY ==
--- NOTE | 2023-06-19 13:44 | DI.RAD_ITS ---
Exam(s) XR CHEST 2V PA LATERAL EXAM: XR CHEST 2V PA LATERAL CLINICAL HISTORY: HYPOXIA, R09.02, COUGH TECHNIQUE: 2D digital imaging was performed of the chest. Two images were obtained. PA and lateral views were obtained. COMPARISON: CR XR CHEST 2V PA LATERAL from 04/04/2023 CR,XR XR PORTABLE CHEST AP from 05/20/2023 FINDINGS: MEDIASTINUM: Normal. HEART: Normal. PULMONARY VASCULATURE: Normal. LUNGS: Mild atelectasis is seen in the left lung base. PLEURAL SPACE: No pleural effusion or pneumothorax. BONE:Within normal limits for the patient's age. There is an old left rib fracture. No acute fractu res identified. OTHER FINDINGS:Normal. IMPRESSION: Mild atelectasis in the left lung base. This has improved compared to 05/20/2023. DATA REPOSITORY: RADIATION DOSE DELIVERED:
== END ==
PROVIDERS: PCP Family Medicine; Visit Provider Family Medicine
DX: J98.11 Atelectasis (principal); R09.02 Hypoxemia
CPT/HCPCS: 71046

== ENCOUNTER 2023-07-21 10:50 | Emergency (ER) | payer MEDICARE, SELFPAY ==
[2023-07-21 10:52] VITALS: BP 117/56; PULSE 60; RESP 20; TEMP 36.8; O2SAT 87
--- NOTE | 2023-07-21 11:15 | DI.RAD_ITS ---
Exam(s) XR SHOULDER LT COMPLETE 2+V XR HUMERUS LT EXAM: XR SHOULDER LT COMPLETE 2+V CLINICAL HISTORY: fall, shoulder pain. TECHNIQUE: 2D digital imaging was performed. Five views. COMPARISON: CR XR SHOULDER RT COMPLETE 2+V from 01/04/2023 CR XR CHEST 2V PA LATERAL from 06/19/2023 CR XR HUMERUS LT from 07/21/2023 FINDINGS: BONES: No acute fracture is present. No bony destructive lesion is seen. Degenerative cysts in the h umeral head. JOINTS: Widening of the AC joint. No glenohumeral joint dislocation present. Degenerative changes g lenohumeral joint. SOFT TISSUE: Moderate left pleural effusion now visible. This was not seen on prior chest x-ray. No evidence of pneumothorax. IMPRESSION: Widening of the AC joint. Dense of fracture. Moderate size left pleural effusion. DATA REPOSITORY: RADIATION DOSE DELIVERED:
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
--- NOTE | 2023-07-21 13:15 | DI.RAD_ITS ---
Exam(s) XR RIBS LT PA CHEST 3V EXAM: XR RIBS LT PA CHEST 3V CLINICAL HISTORY: fall, left side, pleural effusion on xr arm. COMPARISON: Chest x-ray 19 June 2023 FINDINGS: Four views. LUNGS: Moderate-sized left pleural effusion. Present on prior exam. Right lung clear. No pneumotho rax is seen. BONES: Mildly displaced fractures of the left anterior 8th and 9th ribs. The appearance is subacute. There were present on prior chest x-ray. No new rib fractures identified. No bony destructive les ion is seen. IMPRESSION: Moderate-sized left pleural effusion. Subacute fractures of the left 8th and 9th ribs.
[2023-07-21] MEDS: Acetaminophen 325 MG TAB (13:31)
[2023-07-21] MEDS: Ketorolac 15 MG/ML VIAL (13:32)
[2023-07-21 14:00] VITALS: BP 94/54; PULSE 95; TEMP 36.8; O2SAT 93
[2023-07-21 14:29] LABS: Abs Immature Grans 0.03 10^3/uL (0.0-0.06); Absolute Basophil Count 0.04 10^3/uL (0.0-0.2); Absolute Eosinophil Count 0.12 10^3/uL (0.0-0.7); Absolute Lymphocyte Count 0.93 10^3/uL (1.2-3.4); Absolute Monocyte Count 0.42 10^3/uL (0.1-0.8); Absolute Neutrophil Count 8.28 10^3/uL (1.2-6.7); Basophils % 0.4; Eosinophils % 1.2; HCT 41.2 % (36.0-46.0); HGB 12.8 g/dL (11.2-15.7); Immature Grans % 0.3; Lymphocytes % 9.5; MCH 29.9 pg (27.0-33.0); MCHC 31.1 % (32.0-36.0); MCV 96 fL (80-95); Monocytes % 4.3; Neutrophils % 84.3; Platelet Count 292 10^3/uL (130-400); RBC 4.28 10^6/uL (3.93-5.22); RDW 14.3 % (11.7-14.6); RDW-SD 50.7 fL; WBC 9.82 10^3/uL (4.4-10.8)
[2023-07-21 14:42] LABS: PTT Activated 25.2 sec (21.5-31.9); Prothrombin Time 9.9 sec (9.3-11.0)
[2023-07-21 14:55] LABS: ALT 16 U/L (14-59); AST 24 U/L (15-37); Albumin 3.9 g/dL (3.4-5.0); Alkaline Phosphatase 103 U/L (46-116); Anion Gap 8.1 mmol/L (3-11); BUN 25 mg/dL (7-18); Bilirubin, Total 1.1 mg/dL (0.2-1.0); CO2 37.9 mmol/L (21.0-32.0); CREATININE 1.1 mg/dL (0.55-1.02); Calcium 9.1 mg/dL (8.5-10.1); Chloride 96 mmol/L (98-107); Estimated GFR 50.48 (mL/min/1.73m2); Glucose 123 mg/dL (74-106); Potassium 3.7 mmol/L (3.5-5.1); Sodium 142 mmol/L (136-145); Total Protein 7.7 g/dL (6.4-8.2)
--- NOTE | 2023-07-21 15:50 | DI.CT_ITS ---
Exam(s) CT HEAD CERVICAL SPINE WO EXAM: CT HEAD CERVICAL SPINE WO CLINICAL HISTORY: fall. TECHNIQUE: Imaging Protocol: Axial computed tomography images with coronal and sagittal reformatted images were created and reviewed COMPARISON: CT CT HEAD CERVICAL SPINE WO from 05/19/2023 CR XR RIBS LT PA CHEST 3V from 07/21/2023 FINDINGS: Head CT Ventricles and Extra axial spaces: Normal in size and morphology for the patient's age. Hemorrhage: None. Cerebral parenchyma: Mild atrophy. No evidence hemorrhage, infarct or mass. Midline shift: None. Brainstem/Cerebellum: Normal. Calvarium: Normal. Visualized Paranasal sinuses/Mastoids: Clear. Soft tissues: Unremarkable. Cervical Spine CT BONES: Vertebral body heights are maintained. Alignment is normal. There is no evidence of acute frac ture. Severe degenerative disc changes and facet degenerative changes are seen . Stable appearance of slight retrolisthesis of C4 with respect to C3. SOFT TISSUES: No paraspinal hematoma. The airway appears intact. No pneumothorax is seen at the lung apices. Emphysematous and fibrotic changes. Left pleural effusi on partially visualized. IMPRESSION: Head CT: No acute abnormality. C-spine CT: Severe degenerative changes, no acute abnormality. Left pleural effusion. RADIATION DOSE DELIVERED: 985.01mGy.cm Total DLP DATA REPOSITORY: All CT scans at this facility are submitted to the National Radiology Data Registry (NRDR) Dose Index Registry (DIR) with the [employer] (ACR). RADIATION OPTIMIZATION: All CT scans at this facility use at least one of these dose optimization te chniques: automated exposure control; mA and/or kV adjustment per patient size (includes targeted exa ms where dose is matched to clinical indication); or iterative reconstruction.
[2023-07-21] MEDS: Omnipaque 350 MG/ML 100 ML BTL IJ (15:55)
[2023-07-21] MEDS: Normal Saline - Diluent 50 ML VIAL IV (15:56)
--- NOTE | 2023-07-21 16:05 | DI.CT_ITS ---
Exam(s) CT CHEST/ABD/PEL W EXAM: CT CHEST/ABD/PEL W CLINICAL HISTORY: fall, pleural effusion, concern for hemothorax TECHNIQUE: Imaging Protocol: Axial computed tomography images with coronal and sagittal reformatted images were created and reviewed CONTRAST MATERIAL: Intravenous: Omnipaque 350 contrast volume:100 mL Oral: No COMPARISON: CT CT CHEST/ABD/PEL W from 05/19/[address] ABDOMEN PELVIS W from 06/05/[address] HEAD CERVICAL SPINE WO from 07/21/2023 FINDINGS: CHEST: Tracheobronchial tree: Patent where visualized. Pulmonary parenchyma: Emphysematous changes are present. There is now a moderate size left pleural e ffusion and consolidation in loss of volume in the left upper lobe and left lower lobe. This results in a she shift of the midline to the left. The fluid is homogeneously low density. Visualized thyroid gland: Unremarkable. Mediastinum and Gin: No dominant adenopathy or fluid collection. The esophagus is unremarkable. Pleura: No right pleural effusion. No pneumothorax. Heart: The heart is not dilated. Coronary artery calcification and/or stents. There is a small peric ardial effusion. Pulmonary arteries: The pulmonary arteries are inadequately opacified for evaluation of pulmonary emb teo. Aorta: The ascending aorta measures 4.2 x 4.2 cm. Atherosclerosis. No evidence of dissection. Lymph nodes: Within normal limits. Soft tissues: Unremarkable. Bones:Within normal limits for the patient's age. Subacute healing left rib fractures are seen. Romaine e of these were present on the prior examination. Some of these have a occurred in the interim. The y also evidence of some healing. ABDOMEN: Liver: Normal density. No measurable mass. Portal, Superior Mesenteric, and Splenic Veins: Unremarkable. Gallbladder and Biliary Tract: No radiodense calculus or dilation. Pancreas: Normal density, no abnormal calcifications or inflammatory process. Spleen: Normal. Adrenals: No masses seen. Kidneys: Normal size, contour and axis. No radiodense stones or obstructive uropathy. There are bilat eral renal cysts which appear simple. No follow-up is recommended. Abdominal Aorta: 3.8 x 3.8 cm infrarenal abdominal aortic aneurysm. Atherosclerosis. Bowel: There is diffuse thickening of the wall of the distal stomach. Colonic diverticulosis without evidence of acute diverticulitis. There is no evidence of bowel obstruction. No evidence of append icitis. No evidence of pneumatosis. Postsurgical changes at the rectosigmoid junction. Peritoneal Cavity: No ascites, collection or mesenteric inflammatory response. No free air. Lymph Nodes: Within normal limits. Bones: Within normal limits for the patient's age. Soft Tissues: Unremarkable. PELVIS: Bladder: Symmetric distention, no gross wall thickening. Reproductive Organs: Status post hysterectomy. Lymph Nodes: Within normal limits. Bones: Within normal limits. IMPRESSION: 1. Interval development of a moderate left pleural effusion and consolidation and volume loss involvi ng the left upper lobe and left lower lobes. 2. Subacute left healing rib fractures. Several of these fractures have occurred since the prior exa mination but all show evidence of healing. 3. Incidental finding seen in the chest, abdomen and pelvis as described above. RADIATION DOSE DELIVERED: 713.41mGy.cm Total DLP DATA REPOSITORY: All CT scans at this facility are submitted to the National Radiology Data Registry (NRDR) Dose Index Registry (DIR) with the [employer] (ACR). RADIATION OPTIMIZATION: All CT scans at this facility use at least one of these dose optimization te chniques: automated exposure control; mA and/or kV adjustment per patient size (includes targeted exa ms where dose is matched to clinical indication); or iterative reconstruction.
--- NOTE | 2023-07-21 17:02 | DI.VRAD_ITS ---
PROCEDURE INFORMATION: Exam: CT Head Without Contrast Exam date and time: 07/21/2023 3:55 PM Age: 82 years old Clinical indication: Other: Fall TECHNIQUE: Imaging protocol: Computed tomography of the head without contrast. COMPARISON: CT HEAD CERVICAL SPINE WO 05/19/2023 4:35 PM FINDINGS: Brain: No acute intracranial hemorrhage.. There is mild diffuse heterogeneity of the white matter attenuation, consistent with chronic white matter ischemic changes. Mild cerebral atrophy Cerebral ventricles: No ventriculomegaly. Paranasal sinuses: Visualized sinuses are unremarkable. No fluid levels. Mastoid air cells: Visualized mastoid air cells are well aerated. Bones/joints: Unremarkable. No acute fracture. Soft tissues: Unremarkable. IMPRESSION: No acute intracranial hemorrhage.. PROCEDURE INFORMATION: Exam: CT Cervical Spine Without Contrast Exam date and time: 07/21/2023 3:55 PM Age: 82 years old Clinical indication: Other: Fall TECHNIQUE: Imaging protocol: Computed tomography of the cervical spine without contrast. COMPARISON: CT HEAD CERVICAL SPINE WO 05/19/2023 4:35 PM FINDINGS: Bones/joints: No acute fracture of the cervical spine. No subluxation or dislocation of the cervical spine. Anterolisthesis of C3 with respect to C4. Intervertebral disc space narrowing C3 through C7 may represent degenerative disc disease.. Anterior osteophyte formation C3 through C7. Posterior osteophyte formation C3 through C7. Degenerative changes in the facets at multiple levels. Degenerative changes at C1/C2 Lungs: Lung apices are normal. Pleural spaces: Large left pleural effusion. . Thyroid: The thyroid is unremarkable Soft tissues: Unremarkable. Other findings: Motion artifact degrades images IMPRESSION: 1. No acute fracture of the cervical spine. 2. No subluxation or dislocation of the cervical spine. 3. Intervertebral disc space narrowing C3 through C7 may represent degenerative disc disease.. 4. Large left pleural effusion. . Dictated and Authenticated by: Pascual Stoner MD. Ordering:ROSE Hu MD
--- NOTE | 2023-07-21 17:06 | DI.VRAD_ITS ---
PROCEDURE INFORMATION: Exam: CT Chest With Contrast; Diagnostic Exam date and time: 07/21/2023 4:00 PM Age: 82 years old Clinical indication: Other: Fall, pleural effusion, concern for hemothorax TECHNIQUE: Imaging protocol: Diagnostic computed tomography of the chest with contrast. 3D rendering (Not supervised by radiologist): MIP and/or 3D reconstructed images were created by the technologist. Contrast material: OMNI 350; Contrast volume: 100 ml; Contrast route: INTRAVENOUS (IV); COMPARISON: CT CHEST/ABD/PEL W 05/19/2023 4:45 PM FINDINGS: Lungs: Moderate collapse of left upper and lower lobes. Fluid density filling left mainstem bronchus, possible mucous plugging. Mild emphysematous changes in aerated lung. Previously seen nodules not definitely identified on the current study. Pleural spaces: Moderate left-sided pleural effusion. Heart: Unremarkable. No cardiomegaly. No pericardial effusion. Coronary arteries: Coronary artery calcifications. Mediastinal space: Leftward mediastinal shift. Lymph nodes: Unremarkable. No enlarged lymph nodes. Vasculature: Unchanged appearance of mild dilatation of ascending aorta. Bones/joints: Mild degenerative changes in the thoracic spine. Soft tissues: Unremarkable. IMPRESSION: Substantial volume loss in the left upper and lower lobes with possible mucous plugging in the left mainstem bronchus. Moderate left-sided pleural effusion with density not confirmatory for hemorrhage. Unchanged appearance of mild dilatation of ascending aorta, coronary artery calcifications. PROCEDURE INFORMATION: Exam: CT Abdomen And Pelvis With Contrast Exam date and time: 07/21/2023 4:00 PM Age: 82 years old Clinical indication: Other: Fall, pleural effusion, concern for hemothorax TECHNIQUE: Imaging protocol: Computed tomography of the abdomen and pelvis with contrast. 3D rendering (Not supervised by radiologist): MIP and/or 3D reconstructed images were created by the technologist. Contrast material: OMNI 350; Contrast volume: 100 ml; Contrast route: INTRAVENOUS (IV); COMPARISON: CT ABDOMEN PELVIS W 06/05/2023 11:32 PM FINDINGS: Liver: Normal. No mass. Gallbladder and bile ducts: Normal. No calcified stones. No ductal dilation. Pancreas: Normal. No ductal dilation. Spleen: Normal. No splenomegaly. Adrenal glands: Normal. No mass. Kidneys and ureters: Bilateral renal cysts.. This does not warrant further evaluation. Stomach and bowel: Diffuse gastric wall thickening involving fundus and body of the stomach with hypodense wall thickening involving gastric antrum. There is surrounding fluid and fat stranding extending posterolaterally. There is also possible anterior ulceration noted in the antral region. A component of these findings were present on the prior study but the fluid and stranding is clearly new as well as the possible ulceration. Diverticular disease in the colon. Small amount of fluid in the pelvis. Appendix: No evidence of appendicitis. Intraperitoneal space: Unremarkable. No free air. No significant fluid collection. Vasculature: Abdominal aortic aneurysm with some mural thrombus is noted. This measures up to 4.1 cm and is slightly larger than on the prior study. Diffuse atherosclerotic disease. Lymph nodes: Unremarkable. No enlarged lymph nodes. Urinary bladder: Large right posterior bladder diverticulum. Reproductive: Unremarkable as visualized. Bones/joints: Diffuse lumbar degenerative disc disease and facet arthropathy. Mild stenosis at L3-L4 and L4-L5. Soft tissues: Unremarkable. IMPRESSION: Diffusely abnormal stomach. There is diffuse mural thickening with hypodensity wall of the gastric antrum and possible small ulceration anteriorly. There is no adjacent fluid and fat stranding which was not present on the prior study. Upper endoscopy is recommended. Colonic diverticulosis with small amount of fluid in the rectosigmoid region which could be extending from the gastric abnormality versus evidence of diverticulitis. Abdominal aortic aneurysm measures up to 4.1 cm which is slightly larger than on the prior study. Dictated and Authenticated by: Mahad Mcgee MD. Ordering:PDENISE Hu MD
[2023-07-21 17:23] VITALS: BP 146/74; PULSE 84; RESP 16; O2SAT 98
--- NOTE | 2023-07-23 08:03 | NUR.NOTE ---
Accessed chart to obtain where the injury is for the ortho paperwork. Nursing Note:
== END 2023-07-21 17:25 | disposition home or self-care (01) ==
PROVIDERS: Emergency Provider Emergency Medicine; PCP Family Medicine
DX: M25.511 Pain in right shoulder (principal); J90 Pleural effusion, not elsewhere classified; I71.40 Abdominal aortic aneurysm, without rupture, unspecified; S22.42XD Multiple fractures of ribs, left side, subsequent encounter for fracture with routine healing; J44.9 Chronic obstructive pulmonary disease, unspecified; F17.210 Nicotine dependence, cigarettes, uncomplicated; Z79.82 Long term (current) use of aspirin; Z79.899 Other long term (current) drug therapy
CPT/HCPCS: 71101; 74177; 80053; 86850; 86900; 86901; 96372; 99285; 70450; 71260; 72125; 73030; 73060; 85025; 85610; 85730; 99284; J1885; J3490

== ENCOUNTER → 2023-08-11 09:22 | Outpatient (BNVA) | payer MEDICARE, SELFPAY | PROVIDERS: PCP Family Medicine; Referring Provider Family Medicine; Visit Provider Student in an Organized Health Care Education/Training Program | DX: J98.11 Atelectasis (principal); J43.2 Centrilobular emphysema; J96.11 Chronic respiratory failure with hypoxia; F17.210 Nicotine dependence, cigarettes, uncomplicated; J90 Pleural effusion, not elsewhere classified | CPT/HCPCS: 76604; 99214 ==

== ENCOUNTER → 2023-11-27 10:59 | Outpatient (BNVA) | payer MEDICARE, SELFPAY | PROVIDERS: PCP Family Medicine; Referring Provider Family Medicine; Visit Provider Physician Assistant Surgical | DX: J43.2 Centrilobular emphysema (principal); J96.11 Chronic respiratory failure with hypoxia; F17.210 Nicotine dependence, cigarettes, uncomplicated | CPT/HCPCS: 99214 ==

== ENCOUNTER → 2023-12-08 01:21 | Outpatient (CLI) | payer MEDICARE, SELFPAY ==
--- NOTE | 2023-12-08 07:00 | DI.CT_ITS ---
Exam(s) CT CHEST WO EXAM: CT CHEST WO CLINICAL HISTORY: reassess lobar collapse,ATELECTASIS,J98.11. TECHNIQUE: Multi planar reconstructions were performed. CONTRAST MATERIAL: None COMPARISON: CT CT CHEST/ABD/PEL W from 05/19/[address] ABDOMEN PELVIS W from 06/05/[address] CHEST/ABD/PEL W from 07/21/2023 FINDINGS: CHEST: LUNGS: The previously present left pleural effusion has resolved (or has been drained), and on today' s study there is only a small amount of fluid remaining in the inferior half of the left major fissur e with mild adjacent atelectasis. The left lung is re-expanded and there is no pneumothorax. There is a noncalcified nodule in the anterior segment of the left upper lobe measuring 4 millimeters .. This is unchanged from prior CT scan of 05/19/2023. Another smaller 3 millimeter nodule in the a pical posterior segment of the left upper lobe is also unchanged. In the opposite-right lung there is unchanged benign-appearing pleural based density in the upper asp ect of the superior segment of the right lower lobe. Also some atelectasis in the medial right upper and right middle lobes adjacent to the heart border, less than on the previous chest CT study of Apr. There are no new areas of new infiltrate, concerning new nodules nor pleural effusion on the right side. There are no new findings in the trachea and mainstem bronchi. MEDIASTINUM: There is no obvious hilar nor mediastinal adenopathy. No obvious axillary adenopathy CARDIAC: Heart size normal. No pericardial effusion. Coronary artery calcification noted.The thorac ic aorta is again noted be enlarged. The ascending thoracic aorta measures 4.5 cm, unchanged. The a ortic arch is slightly prominent. Descending thoracic aorta is again noted be enlarged measuring up to 4.2 cm, unchanged. VISUALIZED UPPER ABDOMEN:No adrenal masses. No splenomegaly. Benign left kidney cyst again noted. Does not require further workup. OSSEOUS: No significant osseous lesions.There are advanced degenerative changes in the bilateral shou lders-glenohumeral joints which has increased when compared to the prior CT scan. On the present andrey dy there are bilateral glenohumeral joint effusions, larger on the left side and extending into the s ubcoracoid recess. IMPRESSION: 1. Compared to the most recent CT scan of 07/21/2023 there has been significant improvement in the ap pearance of the left hemithorax. The previously present left pleural effusion has resolved and there is re-expansion of the left lung. No pneumothorax. 2. There are stable benign-appearing small nodules in the lungs as described above. No new ominous n odules, significant new infiltrates, nor pleural effusions and there is no new intrathoracic adenopat hy. 3. Enlarged thoracic aorta again noted, including 4.5 cm diameter ascending thoracic aorta which is u nchanged from the prior study. 4. Incidentally noted is advanced degenerative changes in both shoulder glenohumeral joints with orestes ateral joint effusions evident, left again noted be larger than the right. RADIATION DOSE DELIVERED: 321.87mGy.cm Total DLP DATA REPOSITORY: All CT scans at this facility are submitted to the National Radiology Data Registry (NRDR) Dose Index Registry (DIR) with the [employer] ([employer]). RADIATION OPTIMIZATION: All CT scans at this facility use at least one of these dose optimization te chniques: automated exposure control; mA and/or kV adjustment per patient size (includes targeted exa ms where dose is matched to clinical indication); or iterative reconstruction.
== END ==
LOC: DI 01:21
PROVIDERS: PCP Family Medicine; Visit Provider Physician Assistant Surgical
DX: J98.11 Atelectasis (principal)
CPT/HCPCS: 71250

== ENCOUNTER 2023-12-28 15:08 | Outpatient (REF) | payer MEDICARE, SELFPAY ==
[2023-12-28 16:15] LABS: HCT 37.9 % (36.0-46.0); HGB 11.8 g/dL (11.2-15.7)
[2023-12-28 17:15] LABS: BUN 22 mg/dL (7-18); CREATININE 0.9 mg/dL (0.55-1.02); Calcium 9.4 mg/dL (8.5-10.1); Chloride 104 mmol/L (98-107); Estimated GFR 63.83 (mL/min/1.73m2); Ferritin 30 ng/mL (8-252); Glucose 92 mg/dL (74-106); Potassium 4.2 mmol/L (3.5-5.1); Sodium 147 mmol/L (136-145)
== END 2023-12-28 15:09 | disposition home or self-care (01) ==
LOC: NCHCN 15:08
PROVIDERS: PCP Family Medicine; Referring Provider Family Medicine; Visit Provider Family Medicine
DX: G25.81 Restless legs syndrome (principal); I10 Essential (primary) hypertension
CPT/HCPCS: 80048; 82728; 85014; 85018